=== PATIENT | male | born 1955 | race Hispanic/Latino ===

== ENCOUNTER → 2025-01-02 | Outpatient (CLI) | payer SELFPAY ==
[2025-01-02 11:43] LABS: CREATININE 0.7 mg/dL (0.5-1.3)
== END | disposition home or self-care (01) ==
LOC: LAB 10:36
PROVIDERS: ATTEND Surgery
DX: C18.7 Malignant neoplasm of sigmoid colon (principal)
CPT/HCPCS: 36415; 82565; 84520

== ENCOUNTER → 2025-01-05 | Outpatient (CLI) | payer OTHER ==
[~2025-01-05] MED LIST: GADOTERATE MEGLUMINE 10 MMOL/20 ML VIAL IV ONE
--- NOTE | 2025-01-05 10:18 | HMCIMG ---
Exam Type: MRI of the pelvis with and without gadolinium Findings: There is a rectosigmoid inhomogeneous complex appearing mass measuring 6 x 5.2 cm consistent with given history of neoplasm. There is no evidence of extension beyond the confines of the mass to adjacent structures. No adjacent lymphadenopathy is identified. The bony evaluation shows no lesions suggestive of skeletal metastatic disease to the pelvis. The rest of the examination is unremarkable. Specifically, the bony and cartilaginous structures of the pelvis are preserved. There is no significant effusion. No fractures or dislocations are identified. No bone lesions are seen. The prostate is prominent. The rest of the visualized soft tissue structures of the pelvis are unremarkable as well. Visualized portions of the bladder appear unremarkable. Impression: Mass of the rectosigmoid consistent with given history. No evidence of metastatic lesions or direct invasion. Incidentally, the prostate is prominent.
== END | disposition home or self-care (01) ==
LOC: RAH 07:50
PROVIDERS: ATTEND Surgery
DX: C18.7 Malignant neoplasm of sigmoid colon (principal)
CPT/HCPCS: 72197; A9575

== ENCOUNTER 2025-02-13 15:00 | Inpatient (IN) | payer SELFPAY ==
[2025-02-12 14:53] VITALS: BP 114/62; PULSE 62; RESP 17; TEMP 97.9
[2025-02-12 14:54] LABS: BASOPHILS # (AUTO) 0.04 K/uL (0.00-0.20); EOSINOPHILS # (AUTO) 0.16 K/uL (0.00-0.70); EOSINOPHILS % (AUTO) 3.9 % (0.0-8.0); LYMPHOCYTES # (AUTO) 1.1 K/uL (1.0-4.8); LYMPHOCYTES % (AUTO) 27.3 % (21.0-51.0); MEAN CORPUSCULAR HGB CONC 33.7 g/dL (32.0-36.0); MEAN CORPUSCULAR VOLUME 97.9 fL (79-99); MONOCYTES # (AUTO) 0.4 K/uL (0.1-1.0); MONOCYTES % (AUTO) 9.6 % (3.0-13.0); NEUTROPHILS # (AUTO) 2.4 K/uL (1.8-7.7); NEUTROPHILS % (AUTO) 58.2 % (40.0-77.0); PLATELET COUNT (AUTO) 192 K/uL (130-400); RED BLOOD CELL COUNT(AUTO) 3.88 MIL/uL (4.50-6.20); RED CELL DISTRIBUTION WIDTH 12.8 % (11.0-15.5); WHITE BLOOD COUNT (AUTO) 4.1 K/uL (4.8-10.8)
[2025-02-12 15:04] LABS: INR 1.15 (0.85-1.15)
[2025-02-12 15:05] LABS: PARTIAL THROMBOPLASTIN TIME 32.8 SEC (26.3-35.5)
[2025-02-12 15:12] LABS: ALBUMIN 3.7 g/dL (3.5-5.0); BILIRUBIN,TOTAL 0.4 mg/dL (0.2-1.0); CREATININE 0.7 mg/dL (0.5-1.3); TOTAL PROTEIN, SERUM 7.2 g/dL (6.0-8.3)
[~2025-02-13] VITALS: Ht 170.2 cm; Wt 61.1 kg
--- NOTE | 2025-02-13 06:46 | EKG ---
[facility] Test Date: 2025-02-12 Test Time: 14:49:36 Pat Name: AGATHA SOMMER Department: Patient ID: [facility] [id number] Room: Gender: M Road Maker: [id number] : 1955 Requested By: RIAZ LOUIS Order Number: [id number] Reading MD: Tasha Ramirez Measurements Intervals [place] Rate: 63 P: 75 GA: 125 QRS: 78 QRSD: 102 T: 65 QT: 398 QTc: 403 Interpretive Statements Sinus rhythm Ventricular premature complex No previous ECG available for comparison Electronically Signed On 02-13-2025 14:47:01 CDT by Tasha Ramirez Please click the below link to view image of tracing.
[2025-02-17] VITALS (9 sets, daily range): BP systolic 105–146; BP diastolic 45–70; PULSE 74–93; RESP 16–18; TEMP 97.5–98.3
[2025-02-17] MEDS: LACTATED RINGERS 1000ML 1,000 ML IV ONE (09:18)
[2025-02-17] MEDS: MEROPENEM 1GM 1 GM VIAL ONE (09:18)
[2025-02-17] MEDS: INDOCYANINE GREEN 25 MG VIAL IJ ONE (18:34)
[2025-02-17] MEDS ORDERED: LIDOCAINE 1%-EPI 1:100,000 20 ML VIAL ONE (18:35)
[2025-02-17] MEDS ORDERED: BUPIvacaine/PF 0.25% 30ML VIAL IJ ONE (18:35)
[2025-02-17] MEDS ORDERED: FENTanyl CITRate PF 50 MCG/1 ML 5ML AMP IV ONE (18:48)
[2025-02-17] MEDS ORDERED: proPOFol 10 MG/ML 20ML VIAL IV ONE (18:48)
[2025-02-17] MEDS ORDERED: dexaMETHasone SOD PHOSPHATE 10MG/ML 1ML VIAL ONE (18:48)
[2025-02-17] MEDS ORDERED: ondanSETRON 4MG INJ ONE (18:48)
[2025-02-17] MEDS ORDERED: LIDOCAINE PF 100MG/5ML (2%) SYRINGE 5ML ONE (18:48)
[2025-02-17] MEDS ORDERED: MIDAZOLAM HCL 1 MG/ML 2ML VIAL ONE (18:48)
[2025-02-17] MEDS: acetaMINOPHEN 100 ML ONE (18:53)
[2025-02-17] MEDS ORDERED: rocuRONium bROMide 10MG/1ML 5ML VL ONE (18:54)
[2025-02-17] MEDS: MEROPENEM 1GM 1 GM VIAL IVPB ONE (19:15)
[2025-02-17] MEDS ORDERED: FENTanyl CITRate PF 50 MCG/1 ML 2ML VIAL ONE (19:28)
[2025-02-17] MEDS ORDERED: GLYCOPYRROLATE 0.2 MG/ML 5 ML VIAL ONE ×2 (19:36→23:12)
[2025-02-17] MEDS ORDERED: phenylEPHRINE HCL 10 MG/ML 1ML VIAL IV ONE (22:17)
[2025-02-17] MEDS ORDERED: NEOSTIGMINE METHYLSULFATE 1MG/ML IV ONE (23:12)
--- NOTE | 2025-02-17 23:15 | OP ---
Operative Note: DATE OF PROCEDURE: 02/17/25 BRIEF OP NOTE SURGEON: RIAZ LOUIS MD PREOPERATIVE DIAGNOSIS: RECTAL CANCER POSTOPERATIVE DIAGNOSIS: RECTAL CANCER PROCEDURE: ROBOTIC LOW ANTERIOR RESECTION COLOSTOMY CLOSURE DIVERTING ILEOSTOMY CREATION SYSTEMIC ICG PLACEMENT OF AMNIOFIX ESTIMATED BLOOD LOSS: MINIMAL 30CC INDICATIONS: HISTORY OF RECTAL CANCER WITH PRIOR DIVERTING COLOSTOMY FOR OBSTRUCTION. COMPLETED CHEMOTHERAPY AND CHEMORADIATION AND PRESENTED FOR ELECTIVE RESECTION OF THE RECTAL CANCER WITH CLOSURE OF THE COLOSTOMY AND CREATION OF DIVERTING ILEOSTOMY RIAZ LOUIS MD February 17, 2025 23:15
[2025-02-17] MEDS ORDERED: ondanSETRON 4MG INJ IVP PRN (23:30)
[2025-02-17] MEDS: acetaMINOPHEN 325 MG TAB PO SCH (23:30)
[2025-02-17] MEDS: LACTATED RINGERS 1000ML 1,000 ML IV SCH (23:30)
[2025-02-17] MEDS: hydroMORPHone 1 MG INJ ONE (23:36)
[2025-02-17] MEDS: MEPERIDINE-PF 50 MG/ML SYG ONE (23:46)
[2025-02-18] VITALS (24 sets, daily range): BP systolic 97–142; BP diastolic 53–76; PULSE 60–89; RESP 16–20; TEMP 97.7–98.6; O2SAT 98–99
--- NOTE | 2025-02-18 00:20 | NUR ---
RECEIVED PATIENT FROM PACU NURSE SHAKEEL MENDOZA. PATIENT IS DROWSY BUT EASY TO AROUSE. NEW ILEOSTOMY NOTED TO LEFT UPPER QUADRANT ALONG WITH PAUL DRAIN WITH SANGUINOUS DRAINAGE. DOUGLAS CATHETER INTACT AND IN PLACE. PATIENT ON 3L NC SATING AT 100%. NO FAMILY AT BEDSIDE YET. PATIENT MADE COMFORTABLE. BED LOWERED AND IN LOCKED POSITION. CALL LIGHT WITHIN REACH
[2025-02-18] MEDS: hydroMORPHone 0.5 MG SYG (0.5MG/0.5ML) IVP PRN (01:18)
[2025-02-18] MEDS ORDERED: MAGNESIUM 2GM PREMIX 50ML 50 ML IV PRN (02:00)
[2025-02-18] MEDS ORDERED: PoTASSium chl 10% ELIXIR 20MEQ 20 MEQ/15 ML UDCUP PO PRN (02:00)
[2025-02-18] MEDS ORDERED: PoTASSium chloRIDE 20MEQ/100ML 100 ML IV PRN (02:00)
--- NOTE | 2025-02-18 02:01 | CONS ---
[facility] CONSULTATION NOTE Date of Service: February 18, 2025 Reason for Consultation: [ ] Requesting Physician: [ ] PCP:Dav Carrero HISTORY OF PRESENT ILLNESS: This is a 69-year-old male with past medical history of infectious gastroenteritis and colitis, gastritis, malignant neoplasm of sigmoid colon, iron-deficiency anemia chronic, diarrhea and surgical history of colostomy that was performed on September 18, 2024 who underwent an elective resection of the rectal cancer with closure of the colostomy and creation of diverting ileostomy today 02/17/[address]Luebbers Moon. Seen and examined patient in room 427,awake,alert and coherent,appears uncomfortable complaining of abdominal pain 10/10 pain level.Patient has an Ileostomy and a left PAUL.Patient denies fever,chills,nausea,vomiting,chest pain,palpitation and shortness of breath. Patient reports having a normal bowel movement this morning. Latest vital signs temperature 97.7, heart rate 85, blood pressure 126/76 saturation 100% on 3 L nasal cannula.Hosptialist consulted for medical management.Will continue to follow patient in medical surgical floor. REVIEW OF SYSTEMS CONSTITUTIONAL: Denies fevers, chills, or night sweats. No unintentional weight loss reported. NEUROLOGICAL: Denies headache, amaurosis fugax, motor weakness, sensory deficit, vertigo/spinning sensation, gait abnormalities, or tremors. ENT: No hearing loss, otalgia, otorrhea, rhinitis, rhinorrhea, hoarseness, or sore throat. CARDIOVASCULAR: Denies any exertional angina, dyspnea on exertion, orthopnea, paroxysmal nocturnal dyspnea, palpitations, life-threatening arrhythmias, claudication. PULMONARY: Denies any shortness of breath, cough, phlegm/sputum, hemoptysis, pleuritic chest pain. SLEEP: Denies morning headaches, daytime somnolence or napping. Denies difficulty falling asleep, staying asleep, waking from sleep. Denies knowledge of snoring. GASTROINTESTINAL: Complains of abdominal painDenies any type of dysphagia to either liquids or solids. Denies nausea, vomiting, pyrosis, early satiety, d iarrhea, constipation, or changes in stool consistency or caliber. Denies coffee-ground emesis, hematemesis, hematochezia, or melanotic stools. GENITOURINARY: Denies frequency, urgency, nocturia, hematuria or incontinence (Storage/Irritative symptoms.) Low urinary stream, straining to void, urinary intermittency or hesitancy, splitting of the voiding stream, terminal dribbling. ENDOCRINOLOGIC: Denies polyuria, polydipsia, polyphagia or heat/cold into lerances. HEMATOLOGIC: Denies thrombophilia/previous clots, or coagulopathy/bleeding disorders. ONCOLOGIC: Denies personal history of malignancy. DERMATOLOGIC: Denies rashes or pruritus. PSYCHIATRIC: Denies any suicidal or homicidal ideation. Denies hallucinations. PAST MEDICAL HISTORY: [Infectious gastroenteritis and colitis, gastritis, malignant neoplasm of sigmoid colon, iron-deficiency anemia, diarrhea, rectal cancer ] PAST SURGICAL HISTORY: [Colostomy performed on September 18, 2024 ] PAST SOCIAL HISTORY: [ Patient lives with . Patient denies alcohol tobacco and recreational drug use ] FAMILY HISTORY: [Noncontributory ] Coded Allergies: Iodinated Contrast Media (Unverified Allergy, Unknown, 02/12/25) PHYSICAL EXAM GENERAL APPEARANCE: The patient is awake, alert, and oriented, in no acute cardiopulmonary distress. NEUROLOGICAL: Cranial nerves II-XII grossly intact. Motor is 5/5 in bilateral upper and lower extremities proximal to distal. No sensory deficits. HEENT: Face is symmetric. Pupils are equal and reactive. Extraocular movements are intact. NECK: Supple. No JVD. No thyromegaly. No submental, submandibular, pre- /postauricular, occipital or supraclavicular lymphadenopathy. CHEST: Normal chest expansion. No Telemetry. LUNGS: Absence of any rales, rhonchi or any wheezing. CARDIOVASCULAR: Regular. S1 and S2 normal. No appreciable rubs, murmurs or gallops. ABDOMEN: Ileostomy Soft and nondistended. There is no voluntary guarding, or rigidity. : Deferred. Positive Leal. EXTREMITIES: Non-edematous and not cyanotic. No clubbing. Good capillary refill. SKIN: No skin breakdown. Vital Sign (Last 24 Hours) 02/18/25 02/18/25 00:23 00:52 Temp 97.7 Pulse 85 Resp 16 B/P (MAP) 126/76 Pulse Ox 100 O2 Delivery Nasal Cannula O2 Flow Rate 3.0 LABS: DIAGNOSTICS / RADIOLOGY: [ ] ASSESSMENT: Status post robotic low anterior resection with colostomy closure and diverting ileostomy creation POA Malignant neoplasm of sigmoid colon POA Rectal cancer POA Gastritis POA Acute normocytic normochromic anemia POA PLAN: We will admit patient in medical surgical floor Patient on clears liquid per surgery recommendation We will continue LR at 50 mL/hour We will start on Famotidine 20 mg IV bid for GI prophylaxis We will replace electrolytes as needed per protocol We will start on insulin sliding scale AC & HS with hypoglycemia protocol We will add prn medication for fever,pain,cough , nausea and vomiting We will reconcile home meds once medlist available We will request labs in am Further orders to follow depending on above results Case discussed with attending physician and came up with above treatment and plan of care. ADVANCED CARE PLANNING 1. Which of the following were discussed? Hospice Care - No Therapeutic options - Yes Advance Directives - No Other discussions - 2. Discussed with who? Patient and Deb 3. Voluntary nature of this service was explained to the patient? Yes 4. Amount of time spent - ___22____ 5. Reviewed by Physician? (if this service was performed by NPP) Yes ADDENDUM: ATTENDING PHYSICIAN ATTESTATION: I have reviewed the midlevel's plan. I have independently seen, reviewed the chart and made my own assessment of the patient. See my addendum for updates to the midlevel's medical plan MD ASAEL Ospina ROSEMARIE P [facility] February 18, 2025 02:01 PIERO OWEN MD February 18, 2025 18:26
[2025-02-18 03:56] LABS: BASOPHILS # (AUTO) 0.02 K/uL (0.00-0.20); BASOPHILS % (AUTO) 0.2 % (0.0-5.0); HEMOGLOBIN A1C 5.4 % (4.0-6.0); IMMATURE GRANULOCYTE ABSOLUTE 0.01 K/uL (0-1); LYMPHOCYTES # (AUTO) 0.5 K/uL (1.0-4.8); LYMPHOCYTES % (AUTO) 5.6 % (21.0-51.0); MEAN CORPUSCULAR HEMOGLOBIN 33.4 pg (27.0-33.0); MEAN CORPUSCULAR HGB CONC 34.7 g/dL (32.0-36.0); MEAN CORPUSCULAR VOLUME 96.2 fL (79-99); MONOCYTES # (AUTO) 0.4 K/uL (0.1-1.0); MONOCYTES % (AUTO) 4.8 % (3.0-13.0); NEUTROPHILS % (AUTO) 89.3 % (40.0-77.0); PLATELET COUNT (AUTO) 149 K/uL (130-400); RED BLOOD CELL COUNT(AUTO) 3.95 MIL/uL (4.50-6.20); RED CELL DISTRIBUTION WIDTH 12.1 % (11.0-15.5); WHITE BLOOD COUNT (AUTO) 8.9 K/uL (4.8-10.8)
[2025-02-18 04:00] LABS: CREATININE 0.7 mg/dL (0.5-1.3); POTASSIUM 3.6 mmol/L (3.5-5.1)
[2025-02-18 04:30] LABS: WBC MORPHOLOGY CONSISTENT W/DIFF
[2025-02-18] MEDS: PoTASSium chloRIDE 20MEQ ER 20 MEQ ERTAB PO PRN (05:11)
--- NOTE | 2025-02-18 07:27 | PN ---
[facility] PROGRESS NOTE Date of Visit: February 18, 2025 Time of Visit: 07:23 Events / Notes: [ 69 YO patient with history of rectal cancer who underwent a robotic assisted low anterior resection, colostomy closure, diverting ileostomy creation, systemic ICG for assessment of anastomotic graft and placement of amniofix. His VSS. Patient examined at bedside. Patient's respirations are unlabored with BBS clear. He is tolerating clear fluids but reported having some nausea last night. Abdomen is soft and not distended. Ileostomy with watery sanguinous output. ABD incision D&I. Pang cath with clear yellow urine. PAUL drain with serosanguinous output. Poc discussed and encouraged ambulation and I/S exercises. pang to remain in place today. Patient verbalized understanding and agreement. Review of Systems: CONSTITUTIONAL: No malaise or change in sensation of wellbeing. ENMT: No rhinorrhea, otorrhea, sinus pain, ear ache. CARDIOVASCULAR: No angina, palpitations, orthopnea or paroxysmal dyspnea. RESPIRATORY: No SOB. GASTROINTESTINAL: No abdominal pain, nausea, vomiting, diarrhea, hematemesis, melena or change in the patient's habitual bowel movements consistency/number. GENITOURINARY: No dysuria, hematuria or change in bladder continence. MUSCULOSKELETAL: No new muscle pain or decrease in muscular strength. No new joint swelling, redness or tenderness. SKIN: No new rash. Physical Exam: GEN: Awake, alert, oriented in person, time and place, and in no acute distress. HEENT: No rhinorrhea. Oral pharyngeal mucosa is pink, moist and within normal limits. Neck is supple. CHEST: Inspection, palpation of the chest were unremarkable. Lung auscultation revealed normal breath sounds bilaterally. CARDIAC: Heart sounds are regular. ABD: Soft, non-tender and not distended. No peritoneal signs on palpation. No organomegaly. Normal bowel sounds; Ileostomy patent and with sanguinous output. PAUL with serosanguinous discharge. Pang cath in place and with clear yellow urine. . EXT: No cyanosis or clubbing. No edema. SKIN: Intact. No rashes. JOINTS: No evidence of synovitis or acute arthritis. NEURO: Alert and oriented to name, place and person. Cranial nerve examination is unremarkable. No focal motor deficits. Normal speech. Strength is normal. Vital Signs (last 8hr) Date Time Temp Pulse Resp B/P (MAP) Pulse Ox O2 Delivery O2 Flow Rate FiO2 02/18/25 06:53 78 18 N/Cannula Low lpm 2.0 02/18/25 06:22 71 136/68 99 Nasal Cannula 3.0 02/18/25 05:22 85 142/73 98 Nasal Cannula 3.0 02/18/25 04:22 75 116/67 99 Nasal Cannula 3.0 02/18/25 03:22 77 127/72 100 Nasal Cannula 3.0 02/18/25 02:50 Nasal Cannula* 2 02/18/25 02:22 82 114/74 100 Nasal Cannula 3.0 02/18/25 01:52 89 125/64 100 Nasal Cannula 3.0 02/18/25 01:22 84 141/70 100 Nasal Cannula 3.0 02/18/25 01:07 84 124/63 100 Nasal Cannula 3.0 02/18/25 00:52 85 126/76 100 Nasal Cannula 3.0 02/18/25 00:37 62 106/56 100 Nasal Cannula 3.0 02/18/25 00:23 97.7 70 16 127/56 100 Nasal Cannula 3.0 02/18/25 00:22 80 127/65 100 Nasal Cannula 3.0 02/18/25 00:18 71 17 123/62 100 Nasal Cannula 3.0 02/18/25 00:13 75 17 132/58 100 Nasal Cannula 3.0 02/18/25 00:08 73 16 128/57 100 Nasal Cannula 3.0 02/18/25 00:03 74 17 137/53 100 Nasal Cannula 3.0 02/17/25 23:58 77 18 128/58 100 Nasal Cannula 3.0 02/17/25 23:53 79 17 146/67 100 Nasal Cannula 3.0 02/17/25 23:48 84 16 141/61 100 Nasal Cannula 3.0 02/17/25 23:43 88 17 124/68 100 Nasal Cannula 3.0 02/17/25 23:38 87 17 138/65 100 Nonrebreathing Mask 10.0 02/17/25 23:33 93 16 127/70 100 Nonrebreathing Mask 10.0 02/17/25 23:28 86 17 137/55 100 Nonrebreathing Mask 10.0 Laboratory: [ ] Laboratory: Test 02/18/25 05:07 02/18/25 03:15 Range/Units Whole Blood Glucose 143 H 70-110 MG/DL White Blood Count 8.9 4.8-10.8 K/uL Red Blood Count 3.95 L 4.50-6.20 MIL/uL Hemoglobin 13.2 L 14.0-18.0 g/dL Hematocrit 38.0 L 42-54 % Mean Corpuscular Volume 96.2 79-99 fL Mean Corpuscular Hemoglobin 33.4 H 27.0-33.0 pg Mean Corpuscular Hemoglobin Concent 34.7 32.0-36.0 g/dL Red Cell Distribution Width 12.1 11.0-15.5 % Platelet Count 149 130-400 K/uL Mean Platelet Volume 9.1 7.5-10.5 fL Immature Granulocyte % (Auto) 0.1 0-1 % Neutrophils (%) (Auto) 89.3 H 40.0-77.0 % Lymphocytes (%) (Auto) 5.6 L 21.0-51.0 % Monocytes (%) (Auto) 4.8 3.0-13.0 % Eosinophils (%) (Auto) 0.0 0.0-8.0 % Basophils (%) (Auto) 0.2 0.0-5.0 % Neutrophils # (Auto) 8.0 H 1.8-7.7 K/uL Lymphocytes # (Auto) 0.5 L 1.0-4.8 K/uL Monocytes # (Auto) 0.4 0.1-1.0 K/uL Eosinophils # (Auto) 0.00 0.00-0.70 K/uL Basophils # (Auto) 0.02 0.00-0.20 K/uL Absolute Immature Granulocyte (auto 0.01 0-1 K/uL Nucleated Red Blood Cells 0.0 0.0-0.19 % White Cell Morphology Comment CONSISTENT W/DIFF Sodium Level 140 136-145 mmol/L Potassium Level 3.6 3.5-5.1 mmol/L Chloride Level 104 101-111 mmol/L Carbon Dioxide Level 27 21-32 mmol/L Blood Urea Nitrogen 9 7-18 mg/dL Creatinine 0.7 0.5-1.3 mg/dL Glomerular Filtration Rate Calc 99 >90 mL/min Random Glucose 148 H 70-105 mg/dL Hemoglobin A1c 5.4 4.0-6.0 % Estimated Average Glucose (eAG) 108 70-126 mg/dL Total Calcium 8.5 8.5-10.1 mg/dL Current Medications Medications (Trade) Dose Ordered Sig/Alla Route PRN Reason Start Time Stop Time Status Last Admin Dose Admin Acetaminophen (TYLenol 325MG TAB) 650 mg Q6H PO 02/17/25 23:30 03/19/25 23:29 Enoxaparin Sodium (Lovenox) 40 mg DAILY SQ 02/18/25 09:00 03/20/25 08:59 Famotidine (Pepcid 20mg Vial) 20 mg BID IV 02/18/25 09:00 03/20/25 08:59 Hydromorphone HCl (DiLAUDid 0.5MG INJ) 0.5 mg Q4H PRN IVP SEVERE PAIN (7-10) 02/17/25 23:30 02/22/25 23:29 02/18/25 05:11 0.5 MG Insulin Human Regular (humuLIN R 100 UNIT/ML 3ML) AD PRN SQ SLIDING SCALE COVERAGE 02/17/25 23:30 03/19/25 23:29 Lactated Ringer's 1,000 ml @ 50 mls/hr Q20H IV 02/17/25 23:30 03/19/25 23:29 Magnesium Sulfate 50 ml @ 0 mls/hr PROTOCOL PRN IV OTHER [SEE ORDER COMMENTS] 02/18/25 02:00 03/20/25 01:59 Ondansetron HCl (zoFRAN 4MG INJ) 4 mg Q4H PRN IVP NAUSEA 02/17/25 23:30 03/19/25 23:29 Oxycodone HCl (ROXicoDONE) 5 mg Q4H PRN PO MODERATE PAIN (4-6) 02/17/25 23:30 02/24/25 23:29 Potassium Chloride 100 ml @ 100 mls/hr AD PRN IV POTASSIUM PROTOCOL 02/18/25 02:00 03/20/25 01:59 Potassium Chloride (K-Dur/Klor-Con 20meq) 20 meq AD PRN PO POTASSIUM PROTOCOL 02/18/25 02:00 03/20/25 01:59 02/18/25 05:11 20 MEQ Potassium Chloride (KCl 10% Elixir 20meq/15ml) 20 meq AD PRN PO POTASSIUM PROTOCOL 02/18/25 02:00 03/20/25 01:59 Diagnostics / Radiology: [COPY/PASTE HERE IF NO REPORTS PLEASE DELETE SECTION] Assessment: [Rectal Cancer Colostomy in place ] Plan: [Advance diet as tolerated Encourage ambulation Encourage I/S exercises Pain meds as needed Antiemetics prn and report any vomiting Please report any ileostomy output greater than 1000 ml / 24 hr Plan for disposition in the next 24-48 hours Please call with questions,concerns, and change in clinical status Appreciate hospitalist's assistance in our patient care. ] BIMAL LINDSEY NP February 18, 2025 07:27
--- NOTE | 2025-02-18 09:41 | NUR ---
DCP: HOME Pt is self pay, no insurance. PCP is Dav Carrero. Pt reports he lives at home wit Deb Gustafson. denies issues affording home, utilities and food. Pt uses no DME or HH or HSD services. Pt denies dc neds and will return home a dc, family to transport. Addendum: 02/18/25 at 0944 by SANTOS DEMPSEY Amended: Links added.
[2025-02-18] MEDS: ENOXAPARIN SODIUM 40 MG/0.4 ML SYRINGE SQ SCH (10:05)
[2025-02-18] MEDS: FAMOTIDINE 20MG VIAL IV SCH (10:05)
[2025-02-18] MEDS: INSULIN humuLIN R 100 UNIT/ML 3ML SQ PRN (12:16)
[2025-02-18] MEDS: OXYcodONE HCL 5 MG TAB PO PRN (19:01)
[2025-02-18] MEDS: chlorproMAZINE HCL 25 MG TAB PO ONE (22:22)
[2025-02-19 03:43] VITALS: BP 103/56; PULSE 75; RESP 18; TEMP 98.1
[2025-02-19 05:12] LABS: BASOPHILS # (AUTO) 0.04 K/uL (0.00-0.20); BASOPHILS % (AUTO) 0.5 % (0.0-5.0); EOSINOPHILS # (AUTO) 0.02 K/uL (0.00-0.70); EOSINOPHILS % (AUTO) 0.2 % (0.0-8.0); HEMATOCRIT 33.7 % (42-54); IMMATURE GRANULOCYTE ABSOLUTE 0.03 K/uL (0-1); LYMPHOCYTES # (AUTO) 0.7 K/uL (1.0-4.8); LYMPHOCYTES % (AUTO) 8.8 % (21.0-51.0); MEAN CORPUSCULAR HEMOGLOBIN 32.8 pg (27.0-33.0); MEAN CORPUSCULAR HGB CONC 34.1 g/dL (32.0-36.0); MONOCYTES # (AUTO) 0.4 K/uL (0.1-1.0); MONOCYTES % (AUTO) 4.8 % (3.0-13.0); NEUTROPHILS # (AUTO) 7.1 K/uL (1.8-7.7); NEUTROPHILS % (AUTO) 85.3 % (40.0-77.0); PLATELET COUNT (AUTO) 126 K/uL (130-400); RED BLOOD CELL COUNT(AUTO) 3.51 MIL/uL (4.50-6.20); RED CELL DISTRIBUTION WIDTH 12.3 % (11.0-15.5); WHITE BLOOD COUNT (AUTO) 8.3 K/uL (4.8-10.8)
[2025-02-19 05:21] LABS: CREATININE 0.7 mg/dL (0.5-1.3); POTASSIUM 3.8 mmol/L (3.5-5.1)
[2025-02-19 08:00] VITALS: BP 99/60; PULSE 84; RESP 19; TEMP 98.3
--- NOTE | 2025-02-19 08:45 | NUR ---
CATHETER REMOVAL 16 FR DOUGLAS CATHETER REMOVED WITHOUT COMPLICATIONS. CATHETER TIP INTACT. PATIENT TOLERATED WELL.
[2025-02-19 08:58] VITALS: O2SAT 95
--- NOTE | 2025-02-19 09:30 | NUR ---
SUTURE REMOVAL PATIENT HAD A SKIN BIOPSY WITH DERMATOLOGY FOR SKIN REACTION TO IODINE. THREE SUTURES PLACED DUE FOR REMOVAL 02/17. S/W MD DR. LEXIE RAMOS FOR US TO REMOVE.
[2025-02-19 12:00] VITALS: BP 93/57; PULSE 68; RESP 20; TEMP 98.9
--- NOTE | 2025-02-19 13:43 | PN ---
[facility] PROGRESS NOTE Date of Service: February 19, 2025 Time of Service: 13:27 SUBJECTIVE: 02/19 Pt seen at bedside, no acute events overnight. Pain is controlled, he has been able to ambulate. Ostomy with dark effluent output, approximately 90 cc recorded, 1350 cc of urine output. Stoma is pink and well perfused. Wounds are well approximated, no drainage noted. Further care per colorectal surgery REVIEW OF SYSTEMS 12 point ROS negative unless noted in HPI PHYSICAL EXAM GENERAL APPEARANCE: The patient is awake, alert, and oriented, in no acute cardiopulmonary distress. NEUROLOGICAL: Cranial nerves II-XII grossly intact. Motor is 5/5 in bilateral upper and lower extremities proximal to distal. No sensory deficits. HEENT: Face is symmetric. Pupils are equal and reactive. Extraocular movements are intact. NECK: Supple. No JVD. No thyromegaly. No submental, submandibular, pre- /postauricular, occipital or supraclavicular lymphadenopathy. CHEST: Normal chest expansion. No Telemetry. LUNGS: Absence of any rales, rhonchi or any wheezing. CARDIOVASCULAR: Regular. S1 and S2 normal. No appreciable rubs, murmurs or gallops. ABDOMEN: Ileostomy Soft and nondistended. There is no voluntary guarding, or rigidity. : Deferred. Positive Leal. EXTREMITIES: Non-edematous and not cyanotic. No clubbing. Good capillary refill. SKIN: No skin breakdown. Vital Signs (last 8hr) Date Time Temp Pulse Resp B/P (MAP) Pulse Ox O2 Delivery O2 Flow Rate FiO2 02/19/25 08:58 95 Room Air* 0 21 02/19/25 08:00 98.2 84 19 99/60 95 Room Air LABS: Laboratory: Test 02/19/25 11:24 02/19/25 04:57 02/18/25 03:15 Range/Units Whole Blood Glucose 118 H 70-110 MG/DL White Blood Count 8.3 4.8-10.8 K/uL Red Blood Count 3.51 L 4.50-6.20 MIL/uL Hemoglobin 11.5 L 14.0-18.0 g/dL Hematocrit 33.7 L 42-54 % Mean Corpuscular Volume 96.0 79-99 fL Mean Corpuscular Hemoglobin 32.8 27.0-33.0 pg Mean Corpuscular Hemoglobin Concent 34.1 32.0-36.0 g/dL Red Cell Distribution Width 12.3 11.0-15.5 % Platelet Count 126 L 130-400 K/uL Mean Platelet Volume 9.2 7.5-10.5 fL Immature Granulocyte % (Auto) 0.4 0-1 % Neutrophils (%) (Auto) 85.3 H 40.0-77.0 % Lymphocytes (%) (Auto) 8.8 L 21.0-51.0 % Monocytes (%) (Auto) 4.8 3.0-13.0 % Eosinophils (%) (Auto) 0.2 0.0-8.0 % Basophils (%) (Auto) 0.5 0.0-5.0 % Neutrophils # (Auto) 7.1 1.8-7.7 K/uL Lymphocytes # (Auto) 0.7 L 1.0-4.8 K/uL Monocytes # (Auto) 0.4 0.1-1.0 K/uL Eosinophils # (Auto) 0.02 0.00-0.70 K/uL Basophils # (Auto) 0.04 0.00-0.20 K/uL Absolute Immature Granulocyte (auto 0.03 0-1 K/uL Nucleated Red Blood Cells 0.0 0.0-0.19 % Sodium Level 137 136-145 mmol/L Potassium Level 3.8 3.5-5.1 mmol/L Chloride Level 105 101-111 mmol/L Carbon Dioxide Level 30 21-32 mmol/L Blood Urea Nitrogen 9 7-18 mg/dL Creatinine 0.7 0.5-1.3 mg/dL Glomerular Filtration Rate Calc 99 >90 mL/min Random Glucose 109 H 70-105 mg/dL Total Calcium 8.5 8.5-10.1 mg/dL White Cell Morphology Comment CONSISTENT W/DIFF Hemoglobin A1c 5.4 4.0-6.0 % Estimated Average Glucose (eAG) 108 70-126 mg/dL Current Medications Medications (Trade) Dose Ordered Sig/Alla Route PRN Reason Start Time Stop Time Status Last Admin Dose Admin Acetaminophen (TYLenol 325MG TAB) 650 mg Q6H PO 02/17/25 23:30 03/19/25 23:29 02/19/25 12:02 650 MG Enoxaparin Sodium (Lovenox) 40 mg DAILY SQ 02/18/25 09:00 03/20/25 08:59 02/19/25 08:40 40 MG Famotidine (Pepcid 20mg Vial) 20 mg BID IV 02/18/25 09:00 03/20/25 08:59 02/19/25 08:39 20 MG Hydromorphone HCl (DiLAUDid 0.5MG INJ) 0.5 mg Q4H PRN IVP SEVERE PAIN (7-10) 02/17/25 23:30 02/22/25 23:29 02/18/25 12:30 0.5 MG Insulin Human Regular (humuLIN R 100 UNIT/ML 3ML) AD PRN SQ SLIDING SCALE COVERAGE 02/17/25 23:30 03/19/25 23:29 Lactated Ringer's 1,000 ml @ 50 mls/hr Q20H IV 02/17/25 23:30 03/19/25 23:29 Magnesium Sulfate 50 ml @ 0 mls/hr PROTOCOL PRN IV OTHER [SEE ORDER COMMENTS] 02/18/25 02:00 03/20/25 01:59 Ondansetron HCl (zoFRAN 4MG INJ) 4 mg Q4H PRN IVP NAUSEA 02/17/25 23:30 03/19/25 23:29 Oxycodone HCl (ROXicoDONE) 5 mg Q4H PRN PO MODERATE PAIN (4-6) 02/17/25 23:30 02/24/25 23:29 02/18/25 19:01 5 MG Potassium Chloride 100 ml @ 100 mls/hr AD PRN IV POTASSIUM PROTOCOL 02/18/25 02:00 03/20/25 01:59 Potassium Chloride (K-Dur/Klor-Con 20meq) 20 meq AD PRN PO POTASSIUM PROTOCOL 02/18/25 02:00 03/20/25 01:59 02/19/25 05:59 20 MEQ Potassium Chloride (KCl 10% Elixir 20meq/15ml) 20 meq AD PRN PO POTASSIUM PROTOCOL 02/18/25 02:00 03/20/25 01:59 DIAGNOSTICS / RADIOLOGY: [ ] ASSESSMENT: Status post robotic low anterior resection with colostomy closure and diverting ileostomy creation POA Malignant neoplasm of sigmoid colon POA Rectal cancer POA Gastritis POA Acute normocytic normochromic anemia POA PLAN: Continue med/surg Continue diet per colorectal surgery Continue LR at 50 mL/hour Continue Famotidine 20 mg IV bid for GI prophylaxis PRN pain management Colorectal surgery consulted, appreciate recommendations Disposition: Pending improvement in clinical status PIERO OWEN MD February 19, 2025 13:43
[2025-02-19 16:00] VITALS: BP 98/58; PULSE 67; RESP 19; TEMP 98.6
--- NOTE | 2025-02-19 16:23 | DS ---
Discharge Summary HOSPITAL COURSE SUMMARY: [] LAB SYSTEMS ANALYST(S): [] PROCEDURES: [] PROBLEM(S): [] DISCHARGE INSTRUCTIONS: [] Home Meds No Active Prescriptions or Reported Meds MAGGY LUND [facility] February 19, 2025 16:23
--- NOTE | 2025-02-19 17:15 | NUR ---
SUTURE REMOVAL SUTURES ON RIGHT FOOT REMOVED WITHOUT COMPLICATIONS. 3 SUTURES NOTED. NO REDNESS, NO DRAINAGE NOTED TO AREA. PATIENT TOLERATED WILL NO DISCOMFORT NO PAIN NOTED BY PATIENT.
--- NOTE | 2025-02-19 20:30 | NUR ---
PATIENT DISCHARGED. PERIPHERAL IV DISCONTINUED. CATHETER INTACT. PAUL DRAIN REMOVED WITHOUT COMPLICATIONS. DISCHARGE INSTRUCTIONS GIVEN. NO NEW PRESCRIPTIONS. PATIENT AWARE TO F/U WITH PCP AND GI. GI OFFICE TO CONTACT PATIENT WITH SCHEDULED APPT. ALL QUESTIONS ANSWERED.
--- NOTE | 2025-02-23 10:08 | NUR ---
Transitional Phone Call Spoke to Deb Gustafson, Spouse [phone] in [place], states patient is "muy wilbur," "esta wilbur" and "realmente excellente" describing health, incision and person. States no changes in medication; no questions or concerns. States is aware of follow up appointments; has an appointment today 02/23/2025 with Leonel Spicer; will set up the follow up appointment with Dr. Dav Carrero Jr for another day due to patient needing recovering; states the was told the office of GI - Dr. Red Hernandez would contact patient with follow up appointment information. Deb Gustafson, Spouse [phone] inquired about the patient portal ; referred to Financial Counseling, provided number. No further questions at this time.
--- NOTE | 2025-03-02 12:08 | OP ---
Operative Note: DATE OF PROCEDURE: 02/17/25 SURGEON: RIAZ LOUIS MD GRANTS ADMINISTRATOR: None ANESTHESIA: general ANESTHESIOLOGIST/ANIMAL BEHAVIORIST: ANIMAL BEHAVIORIST PREOPERATIVE DIAGNOSIS: Rectal Cancer Colostomy status POSTOPERATIVE DIAGNOSIS: As above PROCEDURE: Robotic Low Anterior Resection Closure of Colostomy (open) Creation of Ileostomy (robotic/laparoscopic) Systemic ICG for assessment of anastomotic grafts Omental Flap creation Placement of AmnioFix ESTIMATED BLOOD LOSS: Minimal DESCRIPTION OF PROCEDURE: After informed consent was obtained, the patient was taken to the operating room and laid in the supine position. Once general endotracheal anesthesia was obtained, the patient was carefully placed into the lithotomy position. Next the abdomen was prepped and draped in the usual sterile fashion. A timeout was performed to confirm the correct patient and procedure. Next we entered the abdomen at [place] point with a Veress needle and was confirmed to be intra- abdominal with a saline drop test. Next pneumoperitoneum was obtained and the abdomen was entered in the right lower quadrant using a 12 mm Optiview scope. The camera was inserted and the abdomen was inspected, there is no evidence of metastatic disease. Supplemental The abdomen. Next the remaining trochars were inserted under direct visualization in a horizontal fashion across the mid abdomen. We then made a circular incision in the right upper quadrant and the premarked ostomy site and dissected down to the anterior fascia which was incised, muscle split, and the posterior fascia was incised and the abdomen this was followed by placement of a wound protector. We then took down the prior loop colostomy by making a [place] incision of the mucocutaneous junction and dissecting down to the anterior fascia. We carefully from tissue from the colon to completely free it. We then placed a 29EEA anvil into the antimesenteric portion of the colon and then transected it with a blue load ESPERANZA 75 stapler. Next the robot was docked in the usual sterile fashion. The sigmoid colon was grasped and retracted medially and the colon was mobilized in a lateral to medial manner. The left ureter was identified and protected throughout the entirety of the case. Once the lateral to medial mobilization was complete the PEARL pedicle was retracted and the peritoneum was scored. The PEARL pedicle was isolated and taken with a white load stapler. Next the posterior rectum was mobilized by dissecting in the presacral space down to the pelvic floor. We then in the anterior dissection incising the peritoneal reflection carefully the rectum from the Denovillers fascia down to the pelvic floor. Once it was done we then took both the right and left lateral stalks. She was seen at the mid rectum. We performed a flexible sigmoidoscopy which confirmed the area the tumor to be in the mid rectum. We then isolated the rectum and transected it with a blue load stapler. Next the mesentery of the sigmoid colon was taken up to an area which was going to be used for the anastomosis. We then gave systemic ICG to assess the bowel which was good to be used as our anastomotic grafts. The specimen was extracted from the right upper quadrant incision. We placed amnio fix over the anvil to be incorporated within the anastomosis. Next the 2 ends of the EEA stapler were mated and a side to end anastomosis was performed. Next an omental flap was created and was placed around the anastomosis. We then selected an area of the small bowel up to 40 to mention the ileocecal valve to use the ileostomy. the abdomen was irrigated until the return was clear. Hemostasis was obtained. Hemostatic powder and drain left in place. We then grasped the small bowel to be used for the ileostomy. and pulled it above skin left. Wound protector removed. The trochars were removed from the abdomen the 12 mm trocar site was closed with a Vicryl suture. All skin incisions were closed with Monocryl sutures and Dermabond placed a sterile dressing. We then matured the ileostomy in the usual Maggy fashion with chromic sutures the patient tolerated the procedure well was taken to the recovery room in stable condition. I discussed the above with the family completion of the case. RIAZ LOUIS MD Mar 02, 2025 12:08
== END 2025-02-19 18:40 | disposition home or self-care (01) | DRG 330 ==
LOC: DAHIP 02-17 08:30 → 4DH 02-17 23:58
PROVIDERS: ADMIT Surgery; ATTEND Surgery
PROC: 0DQG0ZZ Repair Left Large Intestine, Open Approach (ICD-10-PCS; 2025-02-17)
PROC: 0DXU4ZW Transfer Omentum to Abdominal Region, Percutaneous Endoscopic Approach (ICD-10-PCS; 2025-02-17)
PROC: 0DBP4ZZ Excision of Rectum, Percutaneous Endoscopic Approach (ICD-10-PCS; 2025-02-17)
PROC: 4A1BXSH Monitoring of Gastrointestinal Vascular Perfusion using Indocyanine Green Dye, External Approach (ICD-10-PCS; 2025-02-17)
PROC: 8E0W4CZ Robotic Assisted Procedure of Trunk Region, Percutaneous Endoscopic Approach (ICD-10-PCS; principal; 2025-02-17 18:55)
PROC: 0D1B4Z4 Bypass Ileum to Cutaneous, Percutaneous Endoscopic Approach (ICD-10-PCS; 2025-02-17 18:55)
DX: C18.7 Malignant neoplasm of sigmoid colon (principal); C20 Malignant neoplasm of rectum; K29.70 Gastritis, unspecified, without bleeding; D50.9 Iron deficiency anemia, unspecified; Z43.3 Encounter for attention to colostomy
CPT/HCPCS: 36415; 45330; 80048; 80053; 82948; 83036; 85025; 85610; 85730; 86850; 86900; 86901; 88305; 88309; 93005; A4344; A4450; A5063; G0378; J1100; J1171; J1650; J2003; J2175; J2185; J2250; J2371; J2405; J2704; J2710; J3010; J3490; J7030; J7120; Q0161; A4213; A4215; A4216; A4221; A4222; A4223; A4600; A4649; A4663; A4930; A6260; C1769; J0665

== ENCOUNTER → 2025-04-20 | Outpatient (CLI) | payer SELFPAY ==
--- NOTE | 2025-04-20 15:07 | HMCIMG ---
COMPARISON: None Available FLUOROSCOPY TIME: 2.2 minutes TECHNIQUE: Single contrast Gastrografin enema was performed. The entire colon was coated with barium adequately and distended with air. FINDINGS: All colonic segments are well visualized. There are no strictures, masses, or polyps identified. The terminal ileum was seen to reflux with contrast. Appendix is not visualized. There is a left-sided mid abdomen ileostomy tube in place. The post evacuation radiograph demonstrated minimal residual Gastrografin in right colon. IMPRESSION: 1. Unremarkable single contrast Gastrografin enema.
== END | disposition home or self-care (01) ==
LOC: RAH 10:57
PROVIDERS: ATTEND Surgery
DX: Z93.2 Ileostomy status (principal)
CPT/HCPCS: 74270; Q9958

== ENCOUNTER 2025-05-11 11:00 | Inpatient (IN) | payer SELFPAY ==
[~2025-05-11] VITALS: Ht 167.6 cm; Wt 64.9 kg
[2025-05-11 14:20] VITALS: BP 103/58; PULSE 59; RESP 17; TEMP 97.7
[2025-05-11 14:25] LABS: IMMATURE GRANULOCYTE ABSOLUTE 0.01 K/uL (0-1); NUCLEATED RED BLOOD CELLS 0.0 % (0.0-0.19); PLATELET COUNT (AUTO) 153 K/uL (130-400); RED BLOOD CELL COUNT(AUTO) 3.96 MIL/uL (4.50-6.20); RED CELL DISTRIBUTION WIDTH 13.0 % (11.0-15.5); WHITE BLOOD COUNT (AUTO) 3.9 K/uL (4.8-10.8)
--- NOTE | 2025-05-11 14:30 | EKG ---
[facility] Test Date: 2025-05-11 Test Time: 14:11:37 Pat Name: AGATHA SOMMER Department: Patient ID: [facility] [id number] Room: Gender: M Model Maker Plaster: [id number] : 1955 Requested By: MARU AGUILAR Order Number: [id number] Reading MD: Rupert Kent Measurements Intervals [place] Rate: 59 P: 95 [place]: 131 QRS: 77 QRSD: 87 T: 68 QT: 397 QTc: 392 Interpretive Statements Sinus rhythm Compared to ECG 02/12/2025 14:49:36 Ventricular premature complex(es) no longer present Electronically Signed On 05-11-2025 16:59:26 CDT by Rupert Kent Please click the below link to view image of tracing.
[2025-05-11 14:36] LABS: INR 1.03 (0.85-1.15)
[2025-05-11 14:40] LABS: ASPARTATE AMINOTRANSFERASE 17.0 U/L (10-37); CREATININE 0.7 mg/dL (0.5-1.3); GLOMERULAR FILTR. RATE CALC 99.0 mL/min (>90); GLUCOSE,RANDOM 93.0 mg/dL (70-105); SODIUM SERUM 137.0 mmol/L (136-145); TOTAL PROTEIN, SERUM 7.8 g/dL (6.0-8.3); UREA NITROGEN, BLOOD 12.0 mg/dL (7-18)
[2025-05-11] MEDS ORDERED: IMMODIUM PO (14:51)
[2025-05-13] VITALS (27 sets, daily range): BP systolic 111–140; BP diastolic 52–77; PULSE 59–99; RESP 13–19; TEMP 96.3–98; O2SAT 96–100
[2025-05-13] MEDS: INVANZ 1GM+NS 50ML IVPB 50 ML IV SCH (07:11)
[2025-05-13] MEDS: LACTATED RINGERS 1000ML 1,000 ML IV ONE (07:11)
[2025-05-13] MEDS ORDERED: NEOSTIGMINE METHYLSULFATE 1MG/ML IV ONE (07:14)
[2025-05-13] MEDS ORDERED: SUCCINYLCHOLINE CHLORIDE 20 MG/ML 10 ML VIAL ONE (07:14)
[2025-05-13] MEDS ORDERED: GLYCOPYRROLATE 0.2 MG/ML 5 ML VIAL ONE (07:14)
[2025-05-13] MEDS ORDERED: LIDOCAINE PF 100MG/5ML (2%) SYRINGE 5ML ONE (07:14)
[2025-05-13] MEDS ORDERED: MIDAZOLAM HCL 1 MG/ML 2ML VIAL ONE (07:15)
[2025-05-13] MEDS: ERTAPENEM SODIUM 1 GM/VIAL IV ONE (08:20)
[2025-05-13] MEDS ORDERED: LIDOCAINE 1%-EPI 1:100,000 20 ML VIAL ONE (08:27)
[2025-05-13] MEDS ORDERED: LIDOCAINE HCL 1% 20 ML VIAL ONE (08:27)
[2025-05-13] MEDS ORDERED: HYDROcodone/APAP 5/325 1 TAB TABLET PO PRN (09:30)
--- NOTE | 2025-05-13 09:31 | OP ---
Operative Note: DATE OF PROCEDURE: 05/13/25 SURGEON: MARU AGUILAR MD CAMPUS PRESIDENT: [None] ANESTHESIA: [General endotracheal anesthesia] ANESTHESIOLOGIST/FIELD ASSISTANT: [] PREOPERATIVE DIAGNOSIS: [Ileostomy status] POSTOPERATIVE DIAGNOSIS: [Ileostomy status] SYNOPSIS: [Good closure of ileostomy] PROCEDURE: [Ileostomy closure with small-bowel resection] ESTIMATED BLOOD LOSS: [20 mL] INDICATIONS: [The patient is a very pleasant 69-year-old male who is status post robotic low anterior resection with a diverting ileostomy. He now presents for ileostomy closure. The complications, risks alternatives and benefits were discussed with him and his family in detail. Risks include infection, bleeding, injury to surrounding structures, need further surgery, leak from anastomosis and poor bowel function. All questions were answered to their satisfaction and they all wished to proceed with the operation.] DESCRIPTION OF PROCEDURE: [The patient is brought to the operating theater placed supine on the operating table. After appropriate general endotracheal anesthesia was administered and IV antibiotics given the patient is placed in the supine position. The abdomen was prepped and draped in appropriate sterile surgical fashion. Local anesthetic was injected around the ileostomy. Circumferential dissection was achieved around the ileostomy using electrocautery down to the fascia. Sharp dissection was used were appropriate. Once the ileostomy was dissected from the fascia the ileostomy was amputated with normal small bowel on both sides of the ileostomy to provide for a healthy anastomosis. Proximally 5-7 cm on each side was removed. This was a small bowel resection. The mesentery was ligated with the ties. A iete-ep-[id number] anastomosis was created using a ESPERANZA 75 stapler. The entero enterotomy was closed using a tl 60. Excellent hemostasis was achieved. Bowel was were turned to the abdominal cavity. The fascia was closed with 1. PDS in a running fashion. Wound was irrigated and the skin was closed in a pursestring fashion using Monocryl suture. The wound was then packed with a wick. There were no complications. The instrument, sponge and needle count were reported as correct x2 by nursing staff. The patient was then extubated and transferred to the recovery room in a stable condition having tolerated the procedure very well.] MARU AGUILAR MD May 13, 2025 09:31
--- NOTE | 2025-05-13 10:09 | CONS ---
[facility] CONSULTATION NOTE Date of Service: May 13, 2025 Reason for Consultation: [Medical Management] Requesting Physician: [ Dr. Codnon ] HISTORY OF PRESENT ILLNESS: Date of service: 05/13/2025, patient was seen in PACU room 13 This is a 69-year-old male with prior history of malignant neoplasm of the sigmoid colon. Has prior history of colostomy in 08/2024 and low anterior resection with diverting ileostomy in 02/17/2025. Patient underwent closure of ileostomy today with small bowel resection. Patient was seen in PACU postprocedure. He appears very sleepy post anesthesia, he is able to tell me he is not in significant pain. Denies any chest pain, shortness of breath. No significant underlying medical history noted otherwise. We will continue to monitor this patient closely postoperatively. REVIEW OF SYSTEMS: CONSTITUTIONAL: Denies fevers, chills, or night sweats. No unintentional weight loss reported. NEUROLOGICAL: Denies headache, amaurosis fugax, motor weakness, sensory deficit, vertigo/spinning sensation, gait abnormalities, or tremors. ENT: No hearing loss, otalgia, otorrhea, rhinitis, rhinorrhea, hoarseness, or sore throat. CARDIOVASCULAR: Denies any exertional angina, dyspnea on exertion, orthopnea, paroxysmal nocturnal dyspnea, palpitations, life-threatening arrhythmias, claudication. PULMONARY: Denies any shortness of breath, cough, phlegm/sputum, hemoptysis, pleuritic chest pain. SLEEP: Denies morning headaches, daytime somnolence or napping. Denies difficulty falling asleep, staying asleep, waking from sleep. Denies knowledge of snoring. GASTROINTESTINAL: Denies any type of dysphagia to either liquids or solids. Denies nausea, vomiting, pyrosis, early satiety, abdominal pain, diarrhea, constipation, or changes in stool consistency or caliber. Denies coffee-ground emesis, hematemesis, hematochezia, or melanotic stools. GENITOURINARY: Denies frequency, urgency, nocturia, hematuria or incontinence (Storage/Irritative symptoms.) Low urinary stream, straining to void, urinary intermittency or hesitancy, splitting of the voiding stream, terminal dribbling. ENDOCRINOLOGIC: Denies polyuria, polydipsia, polyphagia or heat/cold intolerances. HEMATOLOGIC: Denies thrombophilia/previous clots, or coagulopathy/bleeding disorders. ONCOLOGIC: Denies personal history of malignancy. DERMATOLOGIC: Denies rashes or pruritus. PSYCHIATRIC: Denies any suicidal or homicidal ideation. Denies hallucinations. PAST MEDICAL HISTORY: Prior history of gastritis, history of malignant neoplasm of sigmoid colon, iron deficiency anemia, diarrhea PAST SURGICAL HISTORY: History of colostomy in 08/2024, lower anterior resection with diverting ileostomy in 02/17/2025 PAST SOCIAL HISTORY: Denies significant alcohol or smoking FAMILY HISTORY: Denies pertinent family history Allergies: Iodinated contrast media Coded Allergies: Iodinated Contrast Media (Unverified Allergy, Unknown, 02/12/25) PHYSICAL EXAM GENERAL APPEARANCE: The patient is awake, alert, and oriented, in no acute cardiopulmonary distress. NEUROLOGICAL: Cranial nerves II-XII grossly intact. Motor is 5/5 in bilateral upper and lower extremities proximal to distal. No sensory deficits. HEENT: Face is symmetric. Pupils are equal and reactive. Extraocular movements are intact. NECK: Supple. No JVD. No thyromegaly. No submental, submandibular, pre- /postauricular, occipital or supraclavicular lymphadenopathy. CHEST: Normal chest expansion. No Telemetry. LUNGS: Absence of any rales, rhonchi or any wheezing. CARDIOVASCULAR: Regular. S1 and S2 normal. No appreciable rubs, murmurs or gallops. ABDOMEN: Soft, nontender, and nondistended. There is no rebound, voluntary guarding, or rigidity. : Deferred. No Leal. EXTREMITIES: Non-edematous and not cyanotic. No clubbing. Good capillary refill. SKIN: No skin breakdown. Vital Sign (Last 24 Hours) 05/13/25 05/13/25 09:30 10:00 Temp 97.0 Pulse 95 Resp 17 B/P (MAP) 117/59 Pulse Ox 100 O2 Delivery Nasal Cannula O2 Flow Rate 3.0 LABS: Laboratory: Test 05/11/25 14:12 Range/Units White Blood Count 3.9 L 4.8-10.8 K/uL Red Blood Count 3.96 L 4.50-6.20 MIL/uL Hemoglobin 12.2 L 14.0-18.0 g/dL Hematocrit 36.2 L 42-54 % Mean Corpuscular Volume 91.4 79-99 fL Mean Corpuscular Hemoglobin 30.8 27.0-33.0 pg Mean Corpuscular Hemoglobin Concent 33.7 32.0-36.0 g/dL Red Cell Distribution Width 13.0 11.0-15.5 % Platelet Count 153 130-400 K/uL Mean Platelet Volume 8.9 7.5-10.5 fL Immature Granulocyte % (Auto) 0.3 0-1 % Neutrophils (%) (Auto) 51.3 40.0-77.0 % Lymphocytes (%) (Auto) 32.2 21.0-51.0 % Monocytes (%) (Auto) 9.4 3.0-13.0 % Eosinophils (%) (Auto) 5.5 0.0-8.0 % Basophils (%) (Auto) 1.3 0.0-5.0 % Neutrophils # (Auto) 2.0 1.8-7.7 K/uL Lymphocytes # (Auto) 1.2 1.0-4.8 K/uL Monocytes # (Auto) 0.4 0.1-1.0 K/uL Eosinophils # (Auto) 0.21 0.00-0.70 K/uL Basophils # (Auto) 0.05 0.00-0.20 K/uL Absolute Immature Granulocyte (auto 0.01 0-1 K/uL Nucleated Red Blood Cells 0.0 0.0-0.19 % Prothrombin Time 10.9 9.6-11.6 SEC Prothromb Time International Ratio 1.03 0.85-1.15 Activated Partial Thromboplast Time 31.5 26.3-35.5 SEC Sodium Level 137 136-145 mmol/L Potassium Level 4.3 3.5-5.1 mmol/L Chloride Level 102 101-111 mmol/L Carbon Dioxide Level 30 21-32 mmol/L Blood Urea Nitrogen 12 7-18 mg/dL Creatinine 0.7 0.5-1.3 mg/dL Glomerular Filtration Rate Calc 99 >90 mL/min Random Glucose 93 70-105 mg/dL Total Calcium 9.0 8.5-10.1 mg/dL Total Bilirubin 0.5 0.2-1.0 mg/dL Aspartate Amino Transf (AST/SGOT) 17 10-37 U/L Alanine Aminotransferase (ALT/SGPT) 21 12-78 U/L Alkaline Phosphatase 84 50-136 U/L Total Protein 7.8 6.0-8.3 g/dL Albumin 3.7 3.5-5.0 g/dL DIAGNOSTICS / RADIOLOGY: none ASSESSMENT: Status post ileostomy, 05/13/2025, by Dr. Condon Prior history of LAR with diverting ileostomy in 02/17/2025, POA History of colostomy in 08/2024, POA History of malignant neoplasm of sigmoid colon, POA History of anemia, POA PLAN: Continue with close monitoring in medical-surgical floor Continue with pain control and IV fluids post surgery Continue with postsurgical care by Dr. Condon Home meds will be reconciled and updated, we will hold loperamide Continue with IS, and out of bed to chair twice daily All labs will be repeated in the morning Continue with GI prophylaxis with Pepcid, DVT prophylaxis with Lovenox Monitor patient closely patient is seen postoperatively in PACU and is sleepy, postanesthesia, we will monitor closely and see how patient progresses in the next 24-48 hours Date of service: 05/13/2025 SKY Koch MD, MD May 13, 2025 10:09
[2025-05-13] MEDS: D5W-1/2 NS/20MEQ KCL 1,000 ML IV SCH (12:31)
[2025-05-13] MEDS: SIMETHICONE 80 MG TAB.CHEW PO PRN (18:28)
[2025-05-13] MEDS: FAMOTIDINE 20MG VIAL IV SCH (20:33)
[2025-05-14] VITALS (12 sets, daily range): BP systolic 109–149; BP diastolic 67–83; PULSE 55–69; RESP 16–20; TEMP 97.5–98.6; O2SAT 95–98
[2025-05-14 05:00] LABS: IMMATURE GRANULOCYTE ABSOLUTE 0.04 K/uL (0-1); NUCLEATED RED BLOOD CELLS 0.0 % (0.0-0.19); PLATELET COUNT (AUTO) 133 K/uL (130-400); RED BLOOD CELL COUNT(AUTO) 3.43 MIL/uL (4.50-6.20); RED CELL DISTRIBUTION WIDTH 12.9 % (11.0-15.5); WHITE BLOOD COUNT (AUTO) 8.4 K/uL (4.8-10.8)
[2025-05-14 05:11] LABS: CREATININE 0.7 mg/dL (0.5-1.3); GLOMERULAR FILTR. RATE CALC 99.0 mL/min (>90); GLUCOSE,RANDOM 143.0 mg/dL (70-105); SODIUM SERUM 138.0 mmol/L (136-145); UREA NITROGEN, BLOOD 11.0 mg/dL (7-18)
[2025-05-14] MEDS: MULTIVITAMIN TABLET PO SCH (07:50)
[2025-05-14] MEDS: ENOXAPARIN SODIUM 40 MG/0.4 ML SYRINGE SQ SCH (07:52)
[2025-05-14] MEDS: MAGNESIUM 2GM PREMIX 50ML 50 ML IV SCH (07:55)
--- NOTE | 2025-05-14 09:16 | PN ---
[facility] PROGRESS NOTE Date of Service: May 14, 2025 Time of Service: 09:[address] Whitley SUBJECTIVE: [ 05/13 This is a 69-year-old male with prior history of malignant neoplasm of the sigmoid colon. Has prior history of colostomy in 08/2024 and low anterior resection with diverting ileostomy in 02/17/2025. Patient underwent closure of ileostomy today with small bowel resection. Patient was seen in PACU postprocedure. He appears very sleepy post anesthesia, he is able to tell me he is not in significant pain. Denies any chest pain, shortness of breath. No significant underlying medical history noted otherwise. We will continue to monitor this patient closely postoperatively. 05/14 patient was seen by nurse practitioner and physician during rounding in ro om [id number]. Patient is day one s/p ileostomy closure with small-bowel resection with Dr. Condon. WBC 8.4. H&H stable. Patient denies any shortness of breath, chest pain, nausea, vomiting or any other discomfort. Surgical site present with no signs of infection. We will continue to monitor patient in the meantime. A.m. labs. Disposition as per primary.] REVIEW OF SYSTEMS: CONSTITUTIONAL: Denies fevers, chills, or night sweats. No unintentional weight loss reported. NEUROLOGICAL: Denies headache, amaurosis fugax, motor weakness, sensory deficit, vertigo/spinning sensation, gait abnormalities, or tremors. ENT: No hearing loss, otalgia, otorrhea, rhinitis, rhinorrhea, hoarseness, or sore throat. CARDIOVASCULAR: Denies any exertional angina, dyspnea on exertion, orthopnea, paroxysmal nocturnal dyspnea, palpitations, life-threatening arrhythmias, claudication. PULMONARY: Denies any shortness of breath, cough, phlegm/sputum, hemoptysis, pleuritic chest pain. SLEEP: Denies morning headaches, daytime somnolence or napping. Denies difficulty falling asleep, staying asleep, waking from sleep. Denies knowledge of snoring. GASTROINTESTINAL: Denies any type of dysphagia to either liquids or solids. Denies nausea, vomiting, pyrosis, early satiety, abdominal pain, diarrhea, constipation, or changes in stool consistency or caliber. Denies coffee-ground emesis, hematemesis, hematochezia, or melanotic stools. GENITOURINARY: Denies frequency, urgency, nocturia, hematuria or incontinence (Storage/Irritative symptoms.) Low urinary stream, straining to void, urinary intermittency or hesitancy, splitting of the voiding stream, terminal dribbling. ENDOCRINOLOGIC: Denies polyuria, polydipsia, polyphagia or heat/cold intolerances. HEMATOLOGIC: Denies thrombophilia/previous clots, or coagulopathy/bleeding disorders. ONCOLOGIC: Denies personal history of malignancy. DERMATOLOGIC: Denies rashes or pruritus. PSYCHIATRIC: Denies any suicidal or homicidal ideation. Denies hallucinations. PHYSICAL EXAM GENERAL APPEARANCE: The patient is awake, alert, and oriented, in no acute cardiopulmonary distress. NEUROLOGICAL: Cranial nerves II-XII grossly intact. Motor is 5/5 in bilateral upper and lower extremities proximal to distal. No sensory deficits. HEENT: Face is symmetric. Pupils are equal and reactive. Extraocular movements are intact. NECK: Supple. No JVD. No thyromegaly. No submental, submandibular, pre- /postauricular, occipital or supraclavicular lymphadenopathy. CHEST: Normal chest expansion. No Telemetry. LUNGS: Absence of any rales, rhonchi or any wheezing. CARDIOVASCULAR: Regular. S1 and S2 normal. No appreciable rubs, murmurs or ga llops. ABDOMEN: Soft, nontender, and nondistended. There is no rebound, voluntary guarding, or rigidity. : Deferred. No Leal. EXTREMITIES: Non-edematous and not cyanotic. No clubbing. Good capillary refill. SKIN: No skin breakdown. Vital Signs (last 8hr) Date Time Temp Pulse Resp B/P (MAP) Pulse Ox O2 Delivery O2 Flow Rate FiO2 05/14/25 07:51 98.2 56 18 119/74 98 Room Air 05/14/25 07:04 62 18 N/A Room Air 21 05/14/25 04:00 97.9 57 17 119/76 96 Room Air LABS: Laboratory: Test 05/14/25 04:36 Range/Units White Blood Count 8.4 4.8-10.8 K/uL Red Blood Count 3.43 L 4.50-6.20 MIL/uL Hemoglobin 10.6 L 14.0-18.0 g/dL Hematocrit 31.2 L 42-54 % Mean Corpuscular Volume 91.0 79-99 fL Mean Corpuscular Hemoglobin 30.9 27.0-33.0 pg Mean Corpuscular Hemoglobin Concent 34.0 32.0-36.0 g/dL Red Cell Distribution Width 12.9 11.0-15.5 % Platelet Count 133 130-400 K/uL Mean Platelet Volume 9.0 7.5-10.5 fL Immature Granulocyte % (Auto) 0.5 0-1 % Neutrophils (%) (Auto) 82.9 H 40.0-77.0 % Lymphocytes (%) (Auto) 10.8 L 21.0-51.0 % Monocytes (%) (Auto) 5.6 3.0-13.0 % Eosinophils (%) (Auto) 0.0 0.0-8.0 % Basophils (%) (Auto) 0.2 0.0-5.0 % Neutrophils # (Auto) 7.0 1.8-7.7 K/uL Lymphocytes # (Auto) 0.9 L 1.0-4.8 K/uL Monocytes # (Auto) 0.5 0.1-1.0 K/uL Eosinophils # (Auto) 0.00 0.00-0.70 K/uL Basophils # (Auto) 0.02 0.00-0.20 K/uL Absolute Immature Granulocyte (auto 0.04 0-1 K/uL Nucleated Red Blood Cells 0.0 0.0-0.19 % Sodium Level 138 136-145 mmol/L Potassium Level 4.4 3.5-5.1 mmol/L Chloride Level 103 101-111 mmol/L Carbon Dioxide Level 30 21-32 mmol/L Blood Urea Nitrogen 11 7-18 mg/dL Creatinine 0.7 0.5-1.3 mg/dL Glomerular Filtration Rate Calc 99 >90 mL/min Random Glucose 143 H 70-105 mg/dL Total Calcium 8.6 8.5-10.1 mg/dL Magnesium Level 1.80 1.80-2.40 mg/dL Current Medications Medications (Trade) Dose Ordered Sig/Alla Route PRN Reason Start Time Stop Time Status Last Admin Dose Admin Acetaminophen (TYLenol 325MG TAB) 650 mg Q4H PRN PO TEMPERATURE GREATER THAN 101 05/13/25 09:30 06/12/25 09:29 Acetaminophen/ Hydrocodone Bitart (NORco 5/325MG) 1 tab Q4H PRN PO MODERATE PAIN (4-6) 05/13/25 09:30 05/13/25 09:31 DC Albuterol (DUOneb) 1 udvial Q6H PRN IH sob OR WHEEZING 05/13/25 10:30 06/12/25 10:29 Enoxaparin Sodium (Lovenox) 40 mg DAILY SQ 05/14/25 09:00 06/13/25 08:59 05/14/25 07:52 40 MG Ertapenem 50 ml @ 100 mls/hr ONCALL IV 05/13/25 08:00 05/13/25 16:03 DC Famotidine (Pepcid 20mg Vial) 20 mg BID IV 05/13/25 21:00 06/12/25 20:59 05/14/25 07:50 20 MG Hydralazine HCl (APRESOLine 20MG INJ) 5 mg Q6H PRN IV ADMINISTER FOR SBP > 160 05/13/25 11:30 06/12/25 11:29 Magnesium Sulfate 50 ml @ 0 mls/hr PROTOCOL IV 05/14/25 06:00 06/13/25 05:59 05/14/25 07:55 25 MLS/HR Morphine Sulfate (morPHINE 2MG SYG) 2 mg Q3H PRN IV MODERATE PAIN (4-6) 05/13/25 09:30 05/20/25 09:29 Morphine Sulfate (morPHINE 4MG SYG) 4 mg Q3H PRN IV SEVERE PAIN (7-10) 05/13/25 09:30 05/20/25 09:29 05/13/25 13:17 4 MG Multivitamins Therapeutic (Multivitamin Tablet) 1 tab DAILY PO 05/14/25 09:00 06/13/25 08:59 05/14/25 07:50 1 TAB Ondansetron HCl (zoFRAN 4MG INJ) 4 mg Q4H PRN IVP NAUSEA 05/13/25 09:30 06/12/25 09:29 Potassium Chloride/Dextrose/ Sod Cl 1,000 ml @ 75 mls/hr [id number] IV 05/13/25 09:30 06/12/25 09:29 05/13/25 23:07 75 MLS/HR Simethicone (Mylicon) 40 mg TID PRN PO GI GAS 05/13/25 18:30 06/12/25 18:29 05/14/25 02:19 40 MG DIAGNOSTICS / RADIOLOGY: [ ] ASSESSMENT: Status post ileostomy, 05/13/2025, by Dr. Condon Prior history of LAR with diverting ileostomy in 02/17/2025, POA History of colostomy in 08/2024, POA History of malignant neoplasm of sigmoid colon, POA History of anemia, POA PLAN: Continue with close monitoring in medical-surgical floor Continue with pain control and IV fluids post surgery Continue with postsurgical care by Dr. Condon Home medication reconciled Continue with IS, and out of bed to chair twice daily A.m. labs Continue with GI prophylaxis with Pepcid, DVT prophylaxis with Lovenox Monitor patient closely patient is seen postoperatively in PACU and is sleepy, postanesthesia, we will monitor closely and see how patient progresses in the next 24-48 hours ATTESTATION BY PHYSICIAN I have seen and examined the patient. I reviewed the documentation, medical decision making, and treatment plan as noted by the mid-level provider above. I agree with the findings and plan of care. GRECIA WHITLEY MD, KATARZYNA B [employer]MENT WINDER May 14, 2025 09:15
--- NOTE | 2025-05-14 09:40 | NUR ---
DCP:HOME Pt currently lives at home with his Deb Gustafson [phone]. Pt does not have DME, home health, or provider services. Pt states that he is able to complete ADLs independently. PCP is Dr. Dav Carrero. At [place] pt will want to go home and family can assist with transportation. Addendum: 05/14/25 at 0943 by YA YATES SS Amended: Links added.
--- NOTE | 2025-05-14 12:19 | PN ---
[facility] PROGRESS NOTE Date of Visit: May 14, 2025 Time of Visit: 12:16 Events / Notes: [ 69-year-old male patient with past medical history for iron-deficiency anemia, rectal cancer who had undergone an Low anterior resection with diverting ileostomy on January of 2025. He underwent an ileostomy closure with small-bowel resection. Patient's vital signs have been stable. WBC today of 8.4, hemoglobin 10.6, platelets. Chemistry significant for glucose of 143. Patient's VSS. Patient has tolerated full liquid diet without any n/v. Patient's BBS clear. Abdomen is soft and not distended with active BS. Stoma site incision with dry stain. Patient has voided without difficulties. Poc discussed and encouraged ambulation and I/s exercises. Patient verbalized understanding and agreement. . ] Review of Systems: CONSTITUTIONAL: No malaise or change in sensation of wellbeing. ENMT: No rhinorrhea, otorrhea, sinus pain, ear ache. CARDIOVASCULAR: No angina, palpitations, orthopnea or paroxysmal dyspnea. RESPIRATORY: No SOB. GASTROINTESTINAL: No abdominal pain, nausea, vomiting, diarrhea, hematemesis, melena or change in the patient's habitual bowel movements consistency/number. GENITOURINARY: No dysuria, hematuria or change in bladder continence. MUSCULOSKELETAL: No new muscle pain or decrease in muscular strength. No new joint swelling, redness or tenderness. SKIN: No new rash. Physical Exam: GEN: Awake, alert, oriented in person, time and place, and in no acute distress. HEENT: No rhinorrhea. Oral pharyngeal mucosa is pink, moist CHEST: Inspection, palpation of the chest were unremarkable. Lung auscultation revealed normal breath sounds bilaterally. CARDIAC: Heart sounds are regular. ABD: Soft, non-tender and not distended. No peritoneal signs on palpation. No organomegaly. Normal bowel sounds. Stoma site incision dressing with dry stain EXT: No cyanosis or clubbing. No edema. SKIN: Intact. No rashes. JOINTS: No evidence of synovitis or acute arthritis. NEURO: Alert and oriented to name, place and person. Cranial nerve examination is unremarkable. No focal motor deficits. Normal speech. Strength is normal. Vital Signs (last 8hr) Date Time Temp Pulse Resp B/P (MAP) Pulse Ox O2 Delivery O2 Flow Rate FiO2 05/14/25 11:07 98.1 58 18 120/68 98 Room Air 05/14/25 07:51 98.2 56 18 119/74 98 Room Air 05/14/25 07:04 62 18 N/A Room Air 21 Laboratory: [ ] Laboratory: Test 05/14/25 04:36 Range/Units White Blood Count 8.4 4.8-10.8 K/uL Red Blood Count 3.43 L 4.50-6.20 MIL/uL Hemoglobin 10.6 L 14.0-18.0 g/dL Hematocrit 31.2 L 42-54 % Mean Corpuscular Volume 91.0 79-99 fL Mean Corpuscular Hemoglobin 30.9 27.0-33.0 pg Mean Corpuscular Hemoglobin Concent 34.0 32.0-36.0 g/dL Red Cell Distribution Width 12.9 11.0-15.5 % Platelet Count 133 130-400 K/uL Mean Platelet Volume 9.0 7.5-10.5 fL Immature Granulocyte % (Auto) 0.5 0-1 % Neutrophils (%) (Auto) 82.9 H 40.0-77.0 % Lymphocytes (%) (Auto) 10.8 L 21.0-51.0 % Monocytes (%) (Auto) 5.6 3.0-13.0 % Eosinophils (%) (Auto) 0.0 0.0-8.0 % Basophils (%) (Auto) 0.2 0.0-5.0 % Neutrophils # (Auto) 7.0 1.8-7.7 K/uL Lymphocytes # (Auto) 0.9 L 1.0-4.8 K/uL Monocytes # (Auto) 0.5 0.1-1.0 K/uL Eosinophils # (Auto) 0.00 0.00-0.70 K/uL Basophils # (Auto) 0.02 0.00-0.20 K/uL Absolute Immature Granulocyte (auto 0.04 0-1 K/uL Nucleated Red Blood Cells 0.0 0.0-0.19 % Sodium Level 138 136-145 mmol/L Potassium Level 4.4 3.5-5.1 mmol/L Chloride Level 103 101-111 mmol/L Carbon Dioxide Level 30 21-32 mmol/L Blood Urea Nitrogen 11 7-18 mg/dL Creatinine 0.7 0.5-1.3 mg/dL Glomerular Filtration Rate Calc 99 >90 mL/min Random Glucose 143 H 70-105 mg/dL Total Calcium 8.6 8.5-10.1 mg/dL Magnesium Level 1.80 1.80-2.40 mg/dL Current Medications Medications (Trade) Dose Ordered Sig/Alla Route PRN Reason Start Time Stop Time Status Last Admin Dose Admin Acetaminophen (TYLenol 325MG TAB) 650 mg Q4H PRN PO TEMPERATURE GREATER THAN 101 05/13/25 09:30 06/12/25 09:29 Acetaminophen/ Hydrocodone Bitart (NORco 5/325MG) 1 tab Q4H PRN PO MODERATE PAIN (4-6) 05/13/25 09:30 05/13/25 09:31 DC Albuterol (DUOneb) 1 udvial Q6H PRN IH sob OR WHEEZING 05/13/25 10:30 06/12/25 10:29 Enoxaparin Sodium (Lovenox) 40 mg DAILY SQ 05/14/25 09:00 06/13/25 08:59 05/14/25 07:52 40 MG Ertapenem 50 ml @ 100 mls/hr ONCALL IV 05/13/25 08:00 05/13/25 16:03 DC Famotidine (Pepcid 20mg Vial) 20 mg BID IV 05/13/25 21:00 06/12/25 20:59 05/14/25 07:50 20 MG Hydralazine HCl (APRESOLine 20MG INJ) 5 mg Q6H PRN IV ADMINISTER FOR SBP > 160 05/13/25 11:30 06/12/25 11:29 Magnesium Sulfate 50 ml @ 0 mls/hr PROTOCOL IV 05/14/25 06:00 06/13/25 05:59 05/14/25 07:55 25 MLS/HR Morphine Sulfate (morPHINE 2MG SYG) 2 mg Q3H PRN IV MODERATE PAIN (4-6) 05/13/25 09:30 05/20/25 09:29 Morphine Sulfate (morPHINE 4MG SYG) 4 mg Q3H PRN IV SEVERE PAIN (7-10) 05/13/25 09:30 05/20/25 09:29 05/13/25 13:17 4 MG Multivitamins Therapeutic (Multivitamin Tablet) 1 tab DAILY PO 05/14/25 09:00 06/13/25 08:59 05/14/25 07:50 1 TAB Ondansetron HCl (zoFRAN 4MG INJ) 4 mg Q4H PRN IVP NAUSEA 05/13/25 09:30 06/12/25 09:29 Potassium Chloride/Dextrose/ Sod Cl 1,000 ml @ 75 mls/hr [id number] IV 05/13/25 09:30 06/12/25 09:29 05/13/25 23:07 75 MLS/HR Simethicone (Mylicon) 40 mg TID PRN PO GI GAS 05/13/25 18:30 06/12/25 18:29 05/14/25 02:19 40 MG Diagnostics / Radiology: [COPY/PASTE HERE IF NO REPORTS PLEASE DELETE SECTION] Assessment: [ Ileostomy status History of rectal cancer] Plan: Advance diet as tolerated Encourage ambulation Encourage IS exercises Pain medicines as needed Antiemetics p.r.n. Plan for disposition in the next 24-48 hours. Please call with questions concerns, and change in clinical status Appreciate hospitalist's assistance in our patient care.] BIMAL LINDSEY CONTRACT COORDINATOR May 14, 2025 12:19
[2025-05-15] VITALS (7 sets, daily range): BP systolic 114–133; BP diastolic 68–76; PULSE 59–72; RESP 16–20; TEMP 97.8–98.2; O2SAT 96–98
[2025-05-15 04:37] LABS: IMMATURE GRANULOCYTE ABSOLUTE 0.04 K/uL (0-1); NUCLEATED RED BLOOD CELLS 0.0 % (0.0-0.19); PLATELET COUNT (AUTO) 169 K/uL (130-400); RED BLOOD CELL COUNT(AUTO) 3.90 MIL/uL (4.50-6.20); RED CELL DISTRIBUTION WIDTH 13.1 % (11.0-15.5); WHITE BLOOD COUNT (AUTO) 9.2 K/uL (4.8-10.8)
[2025-05-15 04:51] LABS: ASPARTATE AMINOTRANSFERASE 18.0 U/L (10-37); CREATININE 0.8 mg/dL (0.5-1.3); GLOMERULAR FILTR. RATE CALC 95.0 mL/min (>90); GLUCOSE,RANDOM 153.0 mg/dL (70-105); SODIUM SERUM 131.0 mmol/L (136-145); TOTAL PROTEIN, SERUM 7.3 g/dL (6.0-8.3); UREA NITROGEN, BLOOD 24.0 mg/dL (7-18)
[2025-05-15] MEDS: SODIUM CHLORIDE 1,000 MG TAB PO ONE (06:46)
--- NOTE | 2025-05-15 07:02 | PN ---
[facility] PROGRESS NOTE Date of Visit: May 15, 2025 Time of Visit: 07:02 Events / Notes: 69-year-old male patient with past medical history for iron-deficiency anemia, rectal cancer who had undergone an Low anterior resection with diverting ileostomy on January of 2025. He underwent an ileostomy closure with small-bowel resection. Patient's vital signs have been stable. WBC today of 8.4, hemoglobin 10.6, platelets. Chemistry significant for glucose of 143. Patient's VSS. Patient has tolerated full liquid diet without any n/v. Patient's BBS clear. Abdomen is soft and not distended with active BS. Stoma site incision with dry stain. Patient has voided without difficulties. Poc discussed and encouraged ambulation and I/s exercises. Patient verbalized understanding and agreement. . 05/15/25: Patient's VSS. He is having constant hiccups. He has been able to take in small amounts of fluids. Reports having one episode of emesis after taking vitamin. BBS are clear. Abdomen is soft but mildly distended. Stoma site i ncision with dry dressing. Active bs are present. He is voiding well. Has ambulated and reports passing small amount of flatus.] Review of Systems: CONSTITUTIONAL: No malaise or change in sensation of wellbeing. ENMT: No rhinorrhea, otorrhea, sinus pain, ear ache. CARDIOVASCULAR: No angina, palpitations, orthopnea or paroxysmal dyspnea. RESPIRATORY: No SOB. GASTROINTESTINAL: No abdominal pain, nausea, vomiting, diarrhea, hematemesis, melena or change in the patient's habitual bowel movements consistency/number. GENITOURINARY: No dysuria, hematuria or change in bladder continence. MUSCULOSKELETAL: No new muscle pain or decrease in muscular strength. No new joint swelling, redness or tenderness. SKIN: No new rash. Physical Exam: GEN: Awake, alert, oriented in person, time and place, and in no acute distress. HEENT: No rhinorrhea. Oral pharyngeal mucosa is pink, moist and within normal limits. CHEST: Inspection, palpation of the chest were unremarkable. Lung auscultation revealed normal breath sounds bilaterally. CARDIAC: Heart sounds are regular. ABD: Soft, non-tender and mildly distended. No peritoneal signs on palpation. No organomegaly. Normal bowel sounds. Stoma site incision dry and intact. EXT: No cyanosis or clubbing. No edema. SKIN: Intact. No rashes. JOINTS: No evidence of synovitis or acute arthritis. NEURO: Alert and oriented to name, place and person. No focal motor deficits. Normal speech.Strength is normal. Vital Signs (last 8hr) Date Time Temp Pulse Resp B/P (MAP) Pulse Ox O2 Delivery O2 Flow Rate FiO2 05/15/25 04:00 98.2 63 16 133/76 96 Room Air 05/15/25 01:18 70 18 N/A Room Air 21 05/14/25 23:54 98.6 65 20 149/83 94 Room Air Laboratory: [ ] Laboratory: Test 05/15/25 04:07 Range/Units White Blood Count 9.2 4.8-10.8 K/uL Red Blood Count 3.90 L 4.50-6.20 MIL/uL Hemoglobin 12.0 L 14.0-18.0 g/dL Hematocrit 35.1 L 42-54 % Mean Corpuscular Volume 90.0 79-99 fL Mean Corpuscular Hemoglobin 30.8 27.0-33.0 pg Mean Corpuscular Hemoglobin Concent 34.2 32.0-36.0 g/dL Red Cell Distribution Width 13.1 11.0-15.5 % Platelet Count 169 # 130-400 K/uL Mean Platelet Volume 9.6 7.5-10.5 fL Immature Granulocyte % (Auto) 0.4 0-1 % Neutrophils (%) (Auto) 89.2 H 40.0-77.0 % Lymphocytes (%) (Auto) 9.2 L 21.0-51.0 % Monocytes (%) (Auto) 1.1 L 3.0-13.0 % Eosinophils (%) (Auto) 0.0 0.0-8.0 % Basophils (%) (Auto) 0.1 0.0-5.0 % Neutrophils # (Auto) 8.2 H 1.8-7.7 K/uL Lymphocytes # (Auto) 0.8 L 1.0-4.8 K/uL Monocytes # (Auto) 0.1 0.1-1.0 K/uL Eosinophils # (Auto) 0.00 0.00-0.70 K/uL Basophils # (Auto) 0.01 0.00-0.20 K/uL Absolute Immature Granulocyte (auto 0.04 0-1 K/uL Nucleated Red Blood Cells 0.0 0.0-0.19 % White Cell Morphology Comment See comments Sodium Level 131 L 136-145 mmol/L Potassium Level 4.4 3.5-5.1 mmol/L Chloride Level 98 L 101-111 mmol/L Carbon Dioxide Level 29 21-32 mmol/L Blood Urea Nitrogen 24 H 7-18 mg/dL Creatinine 0.8 0.5-1.3 mg/dL Glomerular Filtration Rate Calc 95 >90 mL/min Random Glucose 153 H 70-105 mg/dL Total Calcium 8.9 8.5-10.1 mg/dL Magnesium Level 2.10 1.80-2.40 mg/dL Total Bilirubin 0.6 0.2-1.0 mg/dL Aspartate Amino Transf (AST/SGOT) 18 10-37 U/L Alanine Aminotransferase (ALT/SGPT) 20 12-78 U/L Alkaline Phosphatase 68 50-136 U/L Total Protein 7.3 6.0-8.3 g/dL Albumin 3.3 L 3.5-5.0 g/dL Current Medications Medications (Trade) Dose Ordered Sig/Alla Route PRN Reason Start Time Stop Time Status Last Admin Dose Admin Acetaminophen (TYLenol 325MG TAB) 650 mg Q4H PRN PO TEMPERATURE GREATER THAN 101 05/13/25 09:30 06/12/25 09:29 Acetaminophen/ Hydrocodone Bitart (NORco 5/325MG) 1 tab Q4H PRN PO MODERATE PAIN (4-6) 05/13/25 09:30 05/13/25 09:31 DC Albuterol (DUOneb) 1 udvial Q6H PRN IH sob OR WHEEZING 05/13/25 10:30 06/12/25 10:29 Dexamethasone (DeCADron 4 mg TAB) 8 mg ONCE PO 05/14/25 17:00 05/14/25 22:00 DC 05/14/25 17:33 8 MG Enoxaparin Sodium (Lovenox) 40 mg DAILY SQ 05/14/25 09:00 06/13/25 08:59 05/14/25 07:52 40 MG Ertapenem 50 ml @ 100 mls/hr ONCALL IV 05/13/25 08:00 05/13/25 16:03 DC Famotidine (Pepcid 20mg Vial) 20 mg BID IV 05/13/25 21:00 06/12/25 20:59 05/14/25 21:03 20 MG Hydralazine HCl (APRESOLine 20MG INJ) 5 mg Q6H PRN IV ADMINISTER FOR SBP > 160 05/13/25 11:30 06/12/25 11:29 Magnesium Sulfate 50 ml @ 0 mls/hr PROTOCOL IV 05/14/25 06:00 06/13/25 05:59 05/14/25 07:55 25 MLS/HR Metoclopramide HCl (regLAN 10MG IV) 10 mg ONCE IVP 05/14/25 17:00 05/14/25 22:00 DC 05/14/25 17:33 10 MG Morphine Sulfate (morPHINE 2MG SYG) 2 mg Q3H PRN IV MODERATE PAIN (4-6) 05/13/25 09:30 05/20/25 09:29 Morphine Sulfate (morPHINE 4MG SYG) 4 mg Q3H PRN IV SEVERE PAIN (7-10) 05/13/25 09:30 05/20/25 09:29 05/13/25 13:17 4 MG Multivitamins Therapeutic (Multivitamin Tablet) 1 tab DAILY PO 05/14/25 09:00 06/13/25 08:59 05/14/25 07:50 1 TAB Ondansetron HCl (zoFRAN 4MG INJ) 4 mg Q4H PRN IVP NAUSEA 05/13/25 09:30 06/12/25 09:29 05/14/25 17:33 4 MG Potassium Chloride/Dextrose/ Sod Cl 1,000 ml @ 75 mls/hr [id number] IV 05/13/25 09:30 06/12/25 09:29 05/15/25 01:37 75 MLS/HR Simethicone (Mylicon) 40 mg TID PRN PO GI GAS 05/13/25 18:30 06/12/25 18:29 05/14/25 02:19 40 MG Diagnostics / Radiology: [COPY/PASTE HERE IF NO REPORTS PLEASE DELETE SECTION] Assessment: [ Ileostomy status History of rectal cancer] Plan: Advance diet as tolerated Encourage ambulation Encourage IS exercises Pain medicines as needed Antiemetics p.r.n KUB today and repeat in am Plan for disposition in the next 24-48 hours. Please call with questions concerns, and change in clinical status Appreciate hospitalist's assistance in our patient care.] BIMAL LINDSEY NP May 15, 2025 07:02
[2025-05-15] MEDS: SUGAMMADEX SODIUM 200 MG/2 ML VIAL IV ONE (07:27)
[2025-05-15] MEDS: FAMOTIDINE 20MG VIAL IV ONE (07:27)
--- NOTE | 2025-05-15 10:02 | PN ---
[facility] PROGRESS NOTE Date of Service: May 15, 2025 Time of Service: 09:[address] Whitley SUBJECTIVE: [ 05/13 This is a 69-year-old male with prior history of malignant neoplasm of the sigmoid colon. Has prior history of colostomy in 08/2024 and low anterior resection with diverting ileostomy in 02/17/2025. Patient underwent closure of ileostomy today with small bowel resection. Patient was seen in PACU postprocedure. He appears very sleepy post anesthesia, he is able to tell me he is not in significant pain. Denies any chest pain, shortness of breath. No significant underlying medical history noted otherwise. We will continue to monitor this patient closely postoperatively. 05/14 patient was seen by nurse practitioner and physician during rounding in ro om 301. Patient is day one s/p ileostomy closure with small-bowel resection with Dr. Condon. WBC 8.4. H&H stable. Patient denies any shortness of breath, chest pain, nausea, vomiting or any other discomfort. Surgical site present with no signs of infection. We will continue to monitor patient in the meantime. A.m. labs. Disposition as per primary. 05/15 patient was seen by nurse practitioner and physician during rounding in room 301. Patient is on GI soft diet and that is tolerating well. Patient de nies any shortness of breath, chest pain, nausea, vomiting or any other discomfort other than pain to the surgical site. Leal catheter was already discontinued on 05/14/2025. We will continue to monitor patient in the meantime. Disposition per primary.] REVIEW OF SYSTEMS: CONSTITUTIONAL: Denies fevers, chills, or night sweats. No unintentional weight loss reported. NEUROLOGICAL: Denies headache, amaurosis fugax, motor weakness, sensory deficit, vertigo/spinning sensation, gait abnormalities, or tremors. ENT: No hearing loss, otalgia, otorrhea, rhinitis, rhinorrhea, hoarseness, or sore throat. CARDIOVASCULAR: Denies any exertional angina, dyspnea on exertion, orthopnea, paroxysmal nocturnal dyspnea, palpitations, life-threatening arrhythmias, claudication. PULMONARY: Denies any shortness of breath, cough, phlegm/sputum, hemoptysis, pleuritic chest pain. SLEEP: Denies morning headaches, daytime somnolence or napping. Denies difficulty falling asleep, staying asleep, waking from sleep. Denies knowledge of snoring. GASTROINTESTINAL: Denies any type of dysphagia to either liquids or solids. Denies nausea, vomiting, pyrosis, early satiety, abdominal pain, diarrhea, constipation, or changes in stool consistency or caliber. Denies coffee-ground emesis, hematemesis, hematochezia, or melanotic stools. Complains of pain to the surgical site. GENITOURINARY: Denies frequency, urgency, nocturia, hematuria or incontinence (Storage/Irritative symptoms.) Low urinary stream, straining to void, urinary intermittency or hesitancy, splitting of the voiding stream, terminal dribbling. ENDOCRINOLOGIC: Denies polyuria, polydipsia, polyphagia or heat/cold intolerances. HEMATOLOGIC: Denies thrombophilia/previous clots, or coagulopathy/bleeding disorders. ONCOLOGIC: Denies personal history of malignancy. DERMATOLOGIC: Denies rashes or pruritus. PSYCHIATRIC: Denies any suicidal or homicidal ideation. Denies hallucinations. PHYSICAL EXAM GENERAL APPEARANCE: The patient is awake, alert, and oriented, in no acute cardiopulmonary distress. NEUROLOGICAL: Cranial nerves II-XII grossly intact. Motor is 5/5 in bilateral upper and lower extremities proximal to distal. No sensory deficits. HEENT: Face is symmetric. Pupils are equal and reactive. Extraocular movements are intact. NECK: Supple. No JVD. No thyromegaly. No submental, submandibular, pre- /postauricular, occipital or supraclavicular lymphadenopathy. CHEST: Normal chest expansion. No Telemetry. LUNGS: Absence of any rales, rhonchi or any wheezing. CARDIOVASCULAR: Regular. S1 and S2 normal. No appreciable rubs, murmurs or gallops. ABDOMEN: Soft, nontender, and nondistended. There is no rebound, voluntary guarding, or rigidity. : Deferred. No Leal. EXTREMITIES: Non-edematous and not cyanotic. No clubbing. Good capillary re fill. SKIN: No skin breakdown. Vital Signs (last 8hr) Date Time Temp Pulse Resp B/P (MAP) Pulse Ox O2 Delivery O2 Flow Rate FiO2 05/15/25 08:00 98.2 66 16 131/71 97 Room Air 21 05/15/25 04:00 98.2 63 16 133/76 96 Room Air LABS: Laboratory: Test 05/15/25 04:07 Range/Units White Blood Count 9.2 4.8-10.8 K/uL Red Blood Count 3.90 L 4.50-6.20 MIL/uL Hemoglobin 12.0 L 14.0-18.0 g/dL Hematocrit 35.1 L 42-54 % Mean Corpuscular Volume 90.0 79-99 fL Mean Corpuscular Hemoglobin 30.8 27.0-33.0 pg Mean Corpuscular Hemoglobin Concent 34.2 32.0-36.0 g/dL Red Cell Distribution Width 13.1 11.0-15.5 % Platelet Count 169 # 130-400 K/uL Mean Platelet Volume 9.6 7.5-10.5 fL Immature Granulocyte % (Auto) 0.4 0-1 % Neutrophils (%) (Auto) 89.2 H 40.0-77.0 % Lymphocytes (%) (Auto) 9.2 L 21.0-51.0 % Monocytes (%) (Auto) 1.1 L 3.0-13.0 % Eosinophils (%) (Auto) 0.0 0.0-8.0 % Basophils (%) (Auto) 0.1 0.0-5.0 % Neutrophils # (Auto) 8.2 H 1.8-7.7 K/uL Lymphocytes # (Auto) 0.8 L 1.0-4.8 K/uL Monocytes # (Auto) 0.1 0.1-1.0 K/uL Eosinophils # (Auto) 0.00 0.00-0.70 K/uL Basophils # (Auto) 0.01 0.00-0.20 K/uL Absolute Immature Granulocyte (auto 0.04 0-1 K/uL Nucleated Red Blood Cells 0.0 0.0-0.19 % White Cell Morphology Comment See comments Sodium Level 131 L 136-145 mmol/L Potassium Level 4.4 3.5-5.1 mmol/L Chloride Level 98 L 101-111 mmol/L Carbon Dioxide Level 29 21-32 mmol/L Blood Urea Nitrogen 24 H 7-18 mg/dL Creatinine 0.8 0.5-1.3 mg/dL Glomerular Filtration Rate Calc 95 >90 mL/min Random Glucose 153 H 70-105 mg/dL Total Calcium 8.9 8.5-10.1 mg/dL Magnesium Level 2.10 1.80-2.40 mg/dL Total Bilirubin 0.6 0.2-1.0 mg/dL Aspartate Amino Transf (AST/SGOT) 18 10-37 U/L Alanine Aminotransferase (ALT/SGPT) 20 12-78 U/L Alkaline Phosphatase 68 50-136 U/L Total Protein 7.3 6.0-8.3 g/dL Albumin 3.3 L 3.5-5.0 g/dL Current Medications Medications (Trade) Dose Ordered Sig/Alla Route PRN Reason Start Time Stop Time Status Last Admin Dose Admin Acetaminophen (TYLenol 325MG TAB) 650 mg Q4H PRN PO TEMPERATURE GREATER THAN 101 05/13/25 09:30 06/12/25 09:29 Acetaminophen/ Hydrocodone Bitart (NORco 5/325MG) 1 tab Q4H PRN PO MODERATE PAIN (4-6) 05/13/25 09:30 05/13/25 09:31 DC Albuterol (DUOneb) 1 udvial Q6H PRN IH sob OR WHEEZING 05/13/25 10:30 06/12/25 10:29 Dexamethasone (DeCADron 4 mg TAB) 8 mg ONCE PO 05/14/25 17:00 05/14/25 22:00 DC 05/14/25 17:33 8 MG Enoxaparin Sodium (Lovenox) 40 mg DAILY SQ 05/14/25 09:00 06/13/25 08:59 05/15/25 09:09 40 MG Ertapenem 50 ml @ 100 mls/hr ONCALL IV 05/13/25 08:00 05/13/25 16:03 DC Famotidine (Pepcid 20mg Vial) 20 mg BID IV 05/13/25 21:00 06/12/25 20:59 05/15/25 09:08 20 MG Hydralazine HCl (APRESOLine 20MG INJ) 5 mg Q6H PRN IV ADMINISTER FOR SBP > 160 05/13/25 11:30 06/12/25 11:29 Magnesium Sulfate 50 ml @ 0 mls/hr PROTOCOL IV 05/14/25 06:00 06/13/25 05:59 05/14/25 07:55 25 MLS/HR Metoclopramide HCl (regLAN 10MG IV) 10 mg ONCE IVP 05/14/25 17:00 05/14/25 22:00 DC 05/14/25 17:33 10 MG Morphine Sulfate (morPHINE 2MG SYG) 2 mg Q3H PRN IV MODERATE PAIN (4-6) 05/13/25 09:30 05/20/25 09:29 Morphine Sulfate (morPHINE 4MG SYG) 4 mg Q3H PRN IV SEVERE PAIN (7-10) 05/13/25 09:30 05/20/25 09:29 05/13/25 13:17 4 MG Multivitamins Therapeutic (Multivitamin Tablet) 1 tab DAILY PO 05/14/25 09:00 06/13/25 08:59 05/15/25 09:08 1 TAB Ondansetron HCl (zoFRAN 4MG INJ) 4 mg Q4H PRN IVP NAUSEA 05/13/25 09:30 06/12/25 09:29 05/14/25 17:33 4 MG Potassium Chloride/Dextrose/ Sod Cl 1,000 ml @ 75 mls/hr [id number] IV 05/13/25 09:30 06/12/25 09:29 05/15/25 01:37 75 MLS/HR Simethicone (Mylicon) 40 mg TID PRN PO GI GAS 05/13/25 18:30 06/12/25 18:29 05/14/25 02:19 40 MG DIAGNOSTICS / RADIOLOGY: [ ] ASSESSMENT: Status post ileostomy, 05/13/2025, by Dr. Condon Prior history of LAR with diverting ileostomy in 02/17/2025, POA History of colostomy in 08/2024, POA History of malignant neoplasm of sigmoid colon, POA History of anemia, POA PLAN: Continue with close monitoring in medical-surgical floor Continue with pain control and IV fluids post surgery Continue with postsurgical care by Dr. Condon Home medication reconciled Continue with IS, and out of bed to chair twice daily A.m. labs Continue with GI prophylaxis with Pepcid, DVT prophylaxis with Lovenox Anticipated discharge [id number] hours ATTESTATION BY PHYSICIAN I have seen and examined the patient. I reviewed the documentation, medical decision making, and treatment plan as noted by the mid-level provider above. I agree with the findings and plan of care. GRECIA WHITLEY MD, [employer] May 15, 2025 10:02
[2025-05-15 11:08] LABS: CREATININE 0.7 mg/dL (0.5-1.3); GLOMERULAR FILTR. RATE CALC 99.0 mL/min (>90); GLUCOSE,RANDOM 129.0 mg/dL (70-105); SODIUM SERUM 130.0 mmol/L (136-145); UREA NITROGEN, BLOOD 23.0 mg/dL (7-18)
--- NOTE | 2025-05-15 15:37 | NUR ---
ABDOMINAL DRESSING CHANGE DONE.
--- NOTE | 2025-05-15 16:28 | HMCIMG ---
ABD 1VW REASON: R/O ILEUS/SBO FINDINGS: Single image of the abdomen was obtained. Distention of small bowel with oral contrast seen in the right cecum.. Bones and soft tissues appear unremarkable. There are no abnormal calcifications. There is no evidence of foreign body. IMPRESSION: 1. Adynamic ileus with distended loops of small bowel. I would recommend a Gastrografin small bowel follow-through
[2025-05-16] VITALS (9 sets, daily range): BP systolic 113–131; BP diastolic 71–84; PULSE 67–78; RESP 16–20; TEMP 97.8–98.7; O2SAT 96–98
[2025-05-16 05:26] LABS: IMMATURE GRANULOCYTE ABSOLUTE 0.03 K/uL (0-1); NUCLEATED RED BLOOD CELLS 0.0 % (0.0-0.19); PLATELET COUNT (AUTO) 149 K/uL (130-400); RED BLOOD CELL COUNT(AUTO) 3.53 MIL/uL (4.50-6.20); RED CELL DISTRIBUTION WIDTH 13.2 % (11.0-15.5); WHITE BLOOD COUNT (AUTO) 8.5 K/uL (4.8-10.8)
[2025-05-16 05:38] LABS: ASPARTATE AMINOTRANSFERASE 29.0 U/L (10-37); CREATININE 0.8 mg/dL (0.5-1.3); GLOMERULAR FILTR. RATE CALC 95.0 mL/min (>90); GLUCOSE,RANDOM 142.0 mg/dL (70-105); SODIUM SERUM 130.0 mmol/L (136-145); TOTAL PROTEIN, SERUM 6.6 g/dL (6.0-8.3); UREA NITROGEN, BLOOD 19.0 mg/dL (7-18)
[2025-05-16] MEDS: LACTATED RINGERS 1000ML 1,000 ML IV SCH (06:30)
[2025-05-16] MEDS: SODIUM CHLORIDE 1,000 MG TAB PO ONE (06:35)
--- NOTE | 2025-05-16 08:40 | PN ---
[facility] PROGRESS NOTE Date of Service: May 16, 2025 Time of Service: 08:[address] Whitley SUBJECTIVE: [ 05/13 This is a 69-year-old male with prior history of malignant neoplasm of the sigmoid colon. Has prior history of colostomy in 08/2024 and low anterior resection with diverting ileostomy in 02/17/2025. Patient underwent closure of ileostomy today with small bowel resection. P rajiv was seen in PACU postprocedure. He appears very sleepy post anesthesia, he is able to tell me he is not in significant pain. Denies any chest pain, shortness of breath. No significant underlying medical history noted otherwise. We will continue to monitor this patient closely postoperatively. 05/14 patient was seen by nurse practitioner and physician during rounding in [facility] m 301. Patient is day one s/p ileostomy closure with small-bowel resection with Dr. Condon. WBC 8.4. H&H stable. Patient denies any shortness of breath, chest pain, nausea, vomiting or any other discomfort. Surgical site present with no signs of infection. We will continue to monitor patient in the meantime. A.m. labs. Disposition as per primary. 05/15 patient was seen by nurse practitioner and physician during rounding in room 301. Patient is on GI soft diet and that is tolerating well. Patient den ies any shortness of breath, chest pain, nausea, vomiting or any other discomfort other than pain to the surgical site. Leal catheter was already discontinued on 05/14/2025. We will continue to monitor patient in the meantime. Disposition per primary. 05/16 patient was seen by nurse practitioner and physician during rounding in room 301. X-ray of the abdomen was performed and showed autonomic ileus with distended loops of small bowel. Gastrografin of small bowel was recommended. Nurse practitioner notified GI on above-stated results. They will follow up. Patient at this moment on GI soft diet and tolerating well. We will continue to monitor patient in the meantime. A.m. labs ] REVIEW OF SYSTEMS: CONSTITUTIONAL: Denies fevers, chills, or night sweats. No unintentional weight loss reported. NEUROLOGICAL: Denies headache, amaurosis fugax, motor weakness, sensory deficit, vertigo/spinning sensation, gait abnormalities, or tremors. ENT: No hearing loss, otalgia, otorrhea, rhinitis, rhinorrhea, hoarseness, or sore throat. CARDIOVASCULAR: Denies any exertional angina, dyspnea on exertion, orthopnea, paroxysmal nocturnal dyspnea, palpitations, life-threatening arrhythmias, claudication. PULMONARY: Denies any shortness of breath, cough, phlegm/sputum, hemoptysis, pleuritic chest pain. SLEEP: Denies morning headaches, daytime somnolence or napping. Denies difficulty falling asleep, staying asleep, waking from sleep. Denies knowledge of snoring. GASTROINTESTINAL: Denies any type of dysphagia to either liquids or solids. Denies nausea, vomiting, pyrosis, early satiety, abdominal pain, diarrhea, constipation, or changes in stool consistency or caliber. Denies coffee-ground emesis, hematemesis, hematochezia, or melanotic stools. Complains of pain to the surgical site. GENITOURINARY: Denies frequency, urgency, nocturia, hematuria or incontinence (Storage/Irritative symptoms.) Low urinary stream, straining to void, urinary intermittency or hesitancy, splitting of the voiding stream, terminal dribbling. ENDOCRINOLOGIC: Denies polyuria, polydipsia, polyphagia or heat/cold intolerances. HEMATOLOGIC: Denies thrombophilia/previous clots, or coagulopathy/bleeding disorders. ONCOLOGIC: Denies personal history of malignancy. DERMATOLOGIC: Denies rashes or pruritus. PSYCHIATRIC: Denies any suicidal or homicidal ideation. Denies hallucinations. PHYSICAL EXAM GENERAL APPEARANCE: The patient is awake, alert, and oriented, in no acute cardiopulmonary distress. NEUROLOGICAL: Cranial nerves II-XII grossly intact. Motor is 5/5 in bilateral upper and lower extremities proximal to distal. No sensory deficits. HEENT: Face is symmetric. Pupils are equal and reactive. Extraocular movements are intact. NECK: Supple. No JVD. No thyromegaly. No submental, submandibular, pre- /postauricular, occipital or supraclavicular lymphadenopathy. CHEST: Normal chest expansion. No Telemetry. LUNGS: Absence of any rales, rhonchi or any wheezing. CARDIOVASCULAR: Regular. S1 and S2 normal. No appreciable rubs, murmurs or gallops. ABDOMEN: Soft, nontender, and nondistended. There is no rebound, voluntary guarding, or rigidity. : Deferred. No Leal. EXTREMITIES: Non-edematous and not cyanotic. No clubbing. Good capillary refill. SKIN: No skin breakdown. Vital Signs (last 8hr) Date Time Temp Pulse Resp B/P (MAP) Pulse Ox O2 Delivery O2 Flow Rate FiO2 05/16/25 08:00 98.1 67 18 126/74 98 Room Air 21 05/16/25 07:24 18 N/A Room Air 05/16/25 03:56 98.2 67 16 120/71 96 Room Air LABS: Laboratory: Test 05/16/25 05:15 05/15/25 04:07 Range/Units White Blood Count 8.5 4.8-10.8 K/uL Red Blood Count 3.53 L 4.50-6.20 MIL/uL Hemoglobin 11.0 L 14.0-18.0 g/dL Hematocrit 32.5 L 42-54 % Mean Corpuscular Volume 92.1 79-99 fL Mean Corpuscular Hemoglobin 31.2 27.0-33.0 pg Mean Corpuscular Hemoglobin Concent 33.8 32.0-36.0 g/dL Red Cell Distribution Width 13.2 11.0-15.5 % Platelet Count 149 130-400 K/uL Mean Platelet Volume 9.1 7.5-10.5 fL Immature Granulocyte % (Auto) 0.4 0-1 % Neutrophils (%) (Auto) 80.9 H 40.0-77.0 % Lymphocytes (%) (Auto) 8.9 L 21.0-51.0 % Monocytes (%) (Auto) 9.5 3.0-13.0 % Eosinophils (%) (Auto) 0.2 0.0-8.0 % Basophils (%) (Auto) 0.1 0.0-5.0 % Neutrophils # (Auto) 6.9 1.8-7.7 K/uL Lymphocytes # (Auto) 0.8 L 1.0-4.8 K/uL Monocytes # (Auto) 0.8 0.1-1.0 K/uL Eosinophils # (Auto) 0.02 0.00-0.70 K/uL Basophils # (Auto) 0.01 0.00-0.20 K/uL Absolute Immature Granulocyte (auto 0.03 0-1 K/uL Nucleated Red Blood Cells 0.0 0.0-0.19 % Sodium Level 130 L 136-145 mmol/L Potassium Level 3.9 3.5-5.1 mmol/L Chloride Level 97 L 101-111 mmol/L Carbon Dioxide Level 31 21-32 mmol/L Blood Urea Nitrogen 19 H 7-18 mg/dL Creatinine 0.8 0.5-1.3 mg/dL Glomerular Filtration Rate Calc 95 >90 mL/min Random Glucose 142 H 70-105 mg/dL Total Calcium 8.6 8.5-10.1 mg/dL Magnesium Level 2.00 1.80-2.40 mg/dL Total Bilirubin 0.8 0.2-1.0 mg/dL Aspartate Amino Transf (AST/SGOT) 29 10-37 U/L Alanine Aminotransferase (ALT/SGPT) 34 12-78 U/L Alkaline Phosphatase 61 50-136 U/L Total Protein 6.6 6.0-8.3 g/dL Albumin 3.1 L 3.5-5.0 g/dL White Cell Morphology Comment See comments Current Medications Medications (Trade) Dose Ordered Sig/Alla Route PRN Reason Start Time Stop Time Status Last Admin Dose Admin Acetaminophen (TYLenol 325MG TAB) 650 mg Q4H PRN PO TEMPERATURE GREATER THAN 101 05/13/25 09:30 06/12/25 09:29 Acetaminophen/ Hydrocodone Bitart (NORco 5/325MG) 1 tab Q4H PRN PO MODERATE PAIN (4-6) 05/13/25 09:30 05/13/25 09:31 DC Albuterol (DUOneb) 1 udvial Q6H PRN IH sob OR WHEEZING 05/13/25 10:30 06/12/25 10:29 Dexamethasone (DeCADron 4 mg TAB) 8 mg ONCE PO 05/14/25 17:00 05/14/25 22:00 DC 05/14/25 17:33 8 MG Enoxaparin Sodium (Lovenox) 40 mg DAILY SQ 05/14/25 09:00 06/13/25 08:59 05/16/25 07:52 40 MG Ertapenem 50 ml @ 100 mls/hr ONCALL IV 05/13/25 08:00 05/13/25 16:03 DC Famotidine (Pepcid 20mg Vial) 20 mg BID IV 05/13/25 21:00 06/12/25 20:59 05/16/25 07:49 20 MG Hydralazine HCl (APRESOLine 20MG INJ) 5 mg Q6H PRN IV ADMINISTER FOR SBP > 160 05/13/25 11:30 06/12/25 11:29 Lactated Ringer's 1,000 ml @ 75 mls/hr [id number] IV 05/16/25 06:30 06/15/25 06:29 Magnesium Sulfate 50 ml @ 0 mls/hr PROTOCOL IV 05/14/25 06:00 06/13/25 05:59 05/14/25 07:55 25 MLS/HR Metoclopramide HCl (regLAN 10MG IV) 10 mg ONCE IVP 05/14/25 17:00 05/14/25 22:00 DC 05/14/25 17:33 10 MG Morphine Sulfate (morPHINE 2MG SYG) 2 mg Q3H PRN IV MODERATE PAIN (4-6) 05/13/25 09:30 05/20/25 09:29 Morphine Sulfate (morPHINE 4MG SYG) 4 mg Q3H PRN IV SEVERE PAIN (7-10) 05/13/25 09:30 05/20/25 09:29 05/13/25 13:17 4 MG Multivitamins Therapeutic (Multivitamin Tablet) 1 tab DAILY PO 05/14/25 09:00 06/13/25 08:59 05/15/25 09:08 1 TAB Ondansetron HCl (zoFRAN 4MG INJ) 4 mg Q4H PRN IVP NAUSEA 05/13/25 09:30 06/12/25 09:29 05/15/25 15:18 4 MG Potassium Chloride/Dextrose/ Sod Cl 1,000 ml @ 75 mls/hr [id number] IV 05/13/25 09:30 06/12/25 09:29 05/15/25 21:22 75 MLS/HR Simethicone (Mylicon) 40 mg TID PRN PO GI GAS 05/13/25 18:30 06/12/25 18:29 05/15/25 15:18 40 MG DIAGNOSTICS / RADIOLOGY: [ ] ASSESSMENT: Status post ileostomy, 05/13/2025, by Dr. Condon Prior history of LAR with diverting ileostomy in 02/17/2025, POA History of colostomy in 08/2024, POA History of malignant neoplasm of sigmoid colon, POA History of anemia, POA PLAN: Continue with close monitoring in medical-surgical floor Continue with pain control and IV fluids post surgery Continue with postsurgical care by Dr. Condon X-ray abdomen showed adynamic ileus with distended loops of small bowel recommended Gastrografin of small-bowel Home medication reconciled Continue with IS, and out of bed to chair twice daily A.m. labs Continue with GI prophylaxis with Pepcid, DVT prophylaxis with Lovenox Anticipated discharge [id number] hours ATTESTATION BY PHYSICIAN I have seen and examined the patient. I reviewed the documentation, medical dec ision making, and treatment plan as noted by the mid-level provider above. I agree with the findings and plan of care. GRECIA WHITLEY MD, [employer] B LAMINATION TECHNICIAN May 16, 2025 08:40
--- NOTE | 2025-05-16 10:20 | PN ---
[facility] PROGRESS NOTE Date of Visit: May 16, 2025 Time of Visit: 10:19 Events / Notes: 69-year-old male patient with past medical history for iron-deficiency anemia, rectal cancer who had undergone an Low anterior resection with diverting ileostomy on January of 2025. He underwent an ileostomy closure with small-bowel resection. Patient's vital signs have been stable. WBC today of 8.4, hemoglobin 10.6, platelets. Chemistry significant for glucose of 143. Patient's VSS. Patient has tolerated full liquid diet without any n/v. Patient's BBS clear. Abdomen is soft and not distended with active BS. Stoma site incision with dry stain. Patient has voided without difficulties. Poc discussed and encouraged ambulation and I/s exercises. Patient verbalized understanding and agreement. . 05/15/25: Patient's VSS. He is having constant hiccups. He has been able to take in small amounts of fluids. Reports having one episode of emesis after taking vitamin. BBS are clear. Abdomen is soft but mildly distended. Stoma site i ncision with dry dressing. Active bs are present. He is voiding well. Has ambulated and reports passing small amount of flatus. 05/16/25: VSS. Patient reports he continues with hiccups. He states she has had several BMs but continues to have nausea. No emesis reported. Informed of possible need to place [place] if vomiting begins. ] Review of Systems: CONSTITUTIONAL: No malaise or change in sensation of wellbeing. ENMT: No rhinorrhea, otorrhea, sinus pain, ear ache. CARDIOVASCULAR: No angina, palpitations, orthopnea or paroxysmal dyspnea. RESPIRATORY: No SOB. GASTROINTESTINAL: No abdominal pain, nausea, vomiting, diarrhea, hematemesis, melena or change in the patient's habitual bowel movements consistency/number. GENITOURINARY: No dysuria, hematuria or change in bladder continence. MUSCULOSKELETAL: No new muscle pain or decrease in muscular strength. No new joint swelling, redness or tenderness. SKIN: No new rash. Physical Exam: GEN: Awake, alert, oriented in person, time and place, and in no acute distress. HEENT: No rhinorrhea. Oral pharyngeal mucosa is pink, moist and within normal limits. CHEST: Inspection, palpation of the chest were unremarkable. Lung auscultation revealed normal breath sounds bilaterally. CARDIAC: Heart sounds are regular. ABD: Soft, non-tender and mildly distended. No peritoneal signs on palpation. No organomegaly. Normal bowel sounds. Stoma site incision dry and intact. EXT: No cyanosis or clubbing. No edema. SKIN: Intact. No rashes. JOINTS: No evidence of synovitis or acute arthritis. NEURO: Alert and oriented to name, place and person. No focal motor deficits. Normal speech.Strength is normal. Vital Signs (last 8hr) Date Time Temp Pulse Resp B/P (MAP) Pulse Ox O2 Delivery O2 Flow Rate FiO2 05/16/25 08:00 98 Room Air* 0 21 05/16/25 08:00 98.1 67 18 126/74 98 Room Air 21 05/16/25 07:24 18 N/A Room Air 05/16/25 03:56 98.2 67 16 120/71 96 Room Air Laboratory: [ ] Laboratory: Test 05/16/25 05:15 05/15/25 04:07 Range/Units White Blood Count 8.5 4.8-10.8 K/uL Red Blood Count 3.53 L 4.50-6.20 MIL/uL Hemoglobin 11.0 L 14.0-18.0 g/dL Hematocrit 32.5 L 42-54 % Mean Corpuscular Volume 92.1 79-99 fL Mean Corpuscular Hemoglobin 31.2 27.0-33.0 pg Mean Corpuscular Hemoglobin Concent 33.8 32.0-36.0 g/dL Red Cell Distribution Width 13.2 11.0-15.5 % Platelet Count 149 130-400 K/uL Mean Platelet Volume 9.1 7.5-10.5 fL Immature Granulocyte % (Auto) 0.4 0-1 % Neutrophils (%) (Auto) 80.9 H 40.0-77.0 % Lymphocytes (%) (Auto) 8.9 L 21.0-51.0 % Monocytes (%) (Auto) 9.5 3.0-13.0 % Eosinophils (%) (Auto) 0.2 0.0-8.0 % Basophils (%) (Auto) 0.1 0.0-5.0 % Neutrophils # (Auto) 6.9 1.8-7.7 K/uL Lymphocytes # (Auto) 0.8 L 1.0-4.8 K/uL Monocytes # (Auto) 0.8 0.1-1.0 K/uL Eosinophils # (Auto) 0.02 0.00-0.70 K/uL Basophils # (Auto) 0.01 0.00-0.20 K/uL Absolute Immature Granulocyte (auto 0.03 0-1 K/uL Nucleated Red Blood Cells 0.0 0.0-0.19 % Sodium Level 130 L 136-145 mmol/L Potassium Level 3.9 3.5-5.1 mmol/L Chloride Level 97 L 101-111 mmol/L Carbon Dioxide Level 31 21-32 mmol/L Blood Urea Nitrogen 19 H 7-18 mg/dL Creatinine 0.8 0.5-1.3 mg/dL Glomerular Filtration Rate Calc 95 >90 mL/min Random Glucose 142 H 70-105 mg/dL Total Calcium 8.6 8.5-10.1 mg/dL Magnesium Level 2.00 1.80-2.40 mg/dL Total Bilirubin 0.8 0.2-1.0 mg/dL Aspartate Amino Transf (AST/SGOT) 29 10-37 U/L Alanine Aminotransferase (ALT/SGPT) 34 12-78 U/L Alkaline Phosphatase 61 50-136 U/L Total Protein 6.6 6.0-8.3 g/dL Albumin 3.1 L 3.5-5.0 g/dL White Cell Morphology Comment See comments Current Medications Medications (Trade) Dose Ordered Sig/Alla Route PRN Reason Start Time Stop Time Status Last Admin Dose Admin Acetaminophen (TYLenol 325MG TAB) 650 mg Q4H PRN PO TEMPERATURE GREATER THAN 101 05/13/25 09:30 06/12/25 09:29 Acetaminophen/ Hydrocodone Bitart (NORco 5/325MG) 1 tab Q4H PRN PO MODERATE PAIN (4-6) 05/13/25 09:30 05/13/25 09:31 DC Albuterol (DUOneb) 1 udvial Q6H PRN IH sob OR WHEEZING 05/13/25 10:30 06/12/25 10:29 Dexamethasone (DeCADron 4 mg TAB) 8 mg ONCE PO 05/14/25 17:00 05/14/25 22:00 DC 05/14/25 17:33 8 MG Enoxaparin Sodium (Lovenox) 40 mg DAILY SQ 05/14/25 09:00 06/13/25 08:59 05/16/25 07:52 40 MG Ertapenem 50 ml @ 100 mls/hr ONCALL IV 05/13/25 08:00 05/13/25 16:03 DC Famotidine (Pepcid 20mg Vial) 20 mg BID IV 05/13/25 21:00 06/12/25 20:59 05/16/25 07:49 20 MG Hydralazine HCl (APRESOLine 20MG INJ) 5 mg Q6H PRN IV ADMINISTER FOR SBP > 160 05/13/25 11:30 06/12/25 11:29 Lactated Ringer's 1,000 ml @ 75 mls/hr [id number] IV 05/16/25 06:30 06/15/25 06:29 Magnesium Sulfate 50 ml @ 0 mls/hr PROTOCOL IV 05/14/25 06:00 06/13/25 05:59 05/14/25 07:55 25 MLS/HR Metoclopramide HCl (regLAN 10MG IV) 10 mg ONCE IVP 05/14/25 17:00 05/14/25 22:00 DC 05/14/25 17:33 10 MG Morphine Sulfate (morPHINE 2MG SYG) 2 mg Q3H PRN IV MODERATE PAIN (4-6) 05/13/25 09:30 05/20/25 09:29 Morphine Sulfate (morPHINE 4MG SYG) 4 mg Q3H PRN IV SEVERE PAIN (7-10) 05/13/25 09:30 05/20/25 09:29 05/13/25 13:17 4 MG Multivitamins Therapeutic (Multivitamin Tablet) 1 tab DAILY PO 05/14/25 09:00 06/13/25 08:59 05/15/25 09:08 1 TAB Ondansetron HCl (zoFRAN 4MG INJ) 4 mg Q4H PRN IVP NAUSEA 05/13/25 09:30 06/12/25 09:29 05/15/25 15:18 4 MG Potassium Chloride/Dextrose/ Sod Cl 1,000 ml @ 75 mls/hr [id number] IV 05/13/25 09:30 05/16/25 10:09 DC 05/15/25 21:22 75 MLS/HR Simethicone (Mylicon) 40 mg TID PRN PO GI GAS 8/20/25 18:30 06/12/25 18:29 05/15/25 15:18 40 MG Sodium Chloride (Sodium Chloride) 2,000 mg ONCE PO 05/16/25 09:00 06/15/25 08:59 Diagnostics / Radiology: [COPY/PASTE HERE IF NO REPORTS PLEASE DELETE SECTION] Assessment: [ Ileostomy status History of rectal cancer] Plan: Diet as tolerated Encourage ambulation Encourage IS exercises Pain medicines as needed Antiemetics p.r.n Repeat KUB in am NG tube to LIS if patient has emesis Plan for disposition in the next 24-48 hours. Please call with questions concerns, and change in clinical status Appreciate hospitalist's assistance in our patient care.] BIMAL LINDSEY NP May 16, 2025 10:20
--- NOTE | 2025-05-16 10:37 | HMCIMG ---
ABD 1VW REASON: evaluate for ileus COMPARISON: Prior study from 05/15/2025 is available. FINDINGS: Single image of the abdomen was obtained. Bowel gas pattern is a dilated loops of small bowel which are fluid-filled with faint amount of Gastrografin.. Bones and soft tissues appear unremarkable. There are no abnormal calcifications. There is no evidence of foreign body. IMPRESSION: 1 dilated dilated loops of small bowel which are fluid-filled with faint amount of Gastrografin suggesting of adynamic ileus.
[2025-05-16] MEDS: SODIUM CHLORIDE 1,000 MG TAB PO SCH (11:05)
--- NOTE | 2025-05-16 12:30 | NUR ---
PROVIDER NOTIFIED OF ABDOMINAL X RAY REPORT, SHOWING (dilated loops of small bowel which are fluid-filled with faint amount of Gastrografin suggesting of adynamic ileus). PER CÉSAR, EDUCATE THE PATIENT ON NEED TO WALK. NG TUBE TO INSERTING IN PATIENT HAS NEW ONSET OF VOMITING. LAST BOWEL MOVEMENT 05/16/25. Addendum: 05/16/25 at 1234 by GAVIOTA DAVIS RN RN Amended: Links added.
--- NOTE | 2025-05-16 17:43 | NUR ---
CONTACTED PROVIDER TO REPORT SOAKED 4X4'S ON ABDOMINAL ILEOSTOMY CLOSURE. DENIES PAIN TO AREA. PATIENT STATED HE HAS ALSO HAD ANOTHER 2 BOWEL MOVEMENTS. PER PROVIDER, CONTINUE WITH DRESSING CHANGE INSTRUCTIONS AND PATIENT TO HAVE CBC, CMP, AND KUB IN AM. Addendum: 05/16/25 at 1747 by GAVIOTA DAVIS RN RN Amended: Links added.
[2025-05-17] VITALS (7 sets, daily range): BP systolic 109–138; BP diastolic 69–75; PULSE 74–115; RESP 18–20; TEMP 97.8–98.5; O2SAT 95–99
[2025-05-17 05:17] LABS: IMMATURE GRANULOCYTE ABSOLUTE 0.03 K/uL (0-1); NUCLEATED RED BLOOD CELLS 0.0 % (0.0-0.19); PLATELET COUNT (AUTO) 149 K/uL (130-400); RED BLOOD CELL COUNT(AUTO) 3.57 MIL/uL (4.50-6.20); RED CELL DISTRIBUTION WIDTH 13.0 % (11.0-15.5); WHITE BLOOD COUNT (AUTO) 7.4 K/uL (4.8-10.8)
[2025-05-17 05:33] LABS: ASPARTATE AMINOTRANSFERASE 26.0 U/L (10-37); CREATININE 0.6 mg/dL (0.5-1.3); GLOMERULAR FILTR. RATE CALC 103.0 mL/min (>90); GLUCOSE,RANDOM 123.0 mg/dL (70-105); SODIUM SERUM 133.0 mmol/L (136-145); TOTAL PROTEIN, SERUM 7.0 g/dL (6.0-8.3); UREA NITROGEN, BLOOD 21.0 mg/dL (7-18)
[2025-05-17] MEDS ORDERED: MAGNESIUM 2GM PREMIX 50ML 50 ML IV SCH (07:30)
--- NOTE | 2025-05-17 10:30 | NUR ---
PATIENT REPORTING NOW 10 EPISODES OF VOMITING "DARK COLORED" EMESIS. NO EMESIS WITNESSED BY NURSE. WILL PROCEED WITH NG TUBE TO BE INSERTED AND PATIENT KEPT NPO. Addendum: 05/17/25 at 1034 by GAVIOTA DAVIS RN RN Amended: Links added.
--- NOTE | 2025-05-17 10:33 | PN ---
[facility] PROGRESS NOTE Date of Service: May 17, 2025 Time of Service: 10:[address] Whitley SUBJECTIVE: [ 05/13 This is a 69-year-old male with prior history of malignant neoplasm of the sigmoid colon. Has prior history of colostomy in 08/2024 and low anterior resection with diverting ileostomy in 02/17/2025. Patient underwent closure of ileostomy today with small bowel resection. Patient was seen in PACU postprocedure. He appears very sleepy post anesthesia, he is able to tell me he is not in significant pain. Denies any chest pain, shortness of breath. No significant underlying medical history noted otherwise. We will continue to monitor this patient closely postoperatively. 05/14 patient was seen by nurse practitioner and physician during rounding in ro om 301. Patient is day one s/p ileostomy closure with small-bowel resection with Dr. Condon. WBC 8.4. H&H stable. Patient denies any shortness of breath, chest pain, nausea, vomiting or any other discomfort. Surgical site present with no signs of infection. We will continue to monitor patient in the meantime. A.m. labs. Disposition as per primary. 05/15 patient was seen by nurse practitioner and physician during rounding in room 301. Patient is on GI soft diet and that is tolerating well. Patient de nies any shortness of breath, chest pain, nausea, vomiting or any other discomfort other than pain to the surgical site. Leal catheter was already discontinued on 05/14/2025. We will continue to monitor patient in the meantime. Disposition per primary. 05/16 patient was seen by nurse practitioner and physician during rounding in room 301. X-ray of the abdomen was performed and showed autonomic ileus with distended loops of small bowel. Gastrografin of small bowel was recommended. Nurse practitioner notified GI on above-stated results. They will follow up. Patient at this moment on GI soft diet and tolerating well. We will continue to monitor patient in the meantime. A.m. labs 05/17 patient was seen by nurse practitioner and physician during rounding in room 301. Patient is s/p KUB which showed adenomatous ileus. 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 Patient also was vomiting throughout the night. Patient also will receive 20 mEq of IV potassium and 2 g of magnesium. We will continue to monitor patient in the meantime. A.m. labs. Disposition as per primary] REVIEW OF SYSTEMS: CONSTITUTIONAL: Denies fevers, chills, or night sweats. No unintentional weight loss reported. NEUROLOGICAL: Denies headache, amaurosis fugax, motor weakness, sensory deficit, vertigo/spinning sensation, gait abnormalities, or tremors. ENT: No hearing loss, otalgia, otorrhea, rhinitis, rhinorrhea, hoarseness, or sore throat. CARDIOVASCULAR: Denies any exertional angina, dyspnea on exertion, orthopnea, paroxysmal nocturnal dyspnea, palpitations, life-threatening arrhythmias, cla udication. PULMONARY: Denies any shortness of breath, cough, phlegm/sputum, hemoptysis, pleuritic chest pain. SLEEP: Denies morning headaches, daytime somnolence or napping. Denies difficulty falling asleep, staying asleep, waking from sleep. Denies knowledge of snoring. GASTROINTESTINAL: Denies any type of dysphagia to either liquids or solids. Denies pyrosis, early satiety, abdominal pain, diarrhea, constipation, or changes in stool consistency or caliber. Denies coffee-ground emesis, hematemesis, hematochezia, or melanotic stools. Complains of pain to the surgical site. Complains of nausea and vomiting GENITOURINARY: Denies frequency, urgency, nocturia, hematuria or incontinence (Storage/Irritative symptoms.) Low urinary stream, straining to void, urinary intermittency or hesitancy, splitting of the voiding stream, terminal dribbling. ENDOCRINOLOGIC: Denies polyuria, polydipsia, polyphagia or heat/cold intolerances. HEMATOLOGIC: Denies thrombophilia/previous clots, or coagulopathy/bleeding disorders. ONCOLOGIC: Denies personal history of malignancy. DERMATOLOGIC: Denies rashes or pruritus. PSYCHIATRIC: Denies any suicidal or homicidal ideation. Denies hallucinations. PHYSICAL EXAM GENERAL APPEARANCE: The patient is awake, alert, and oriented, in no acute cardiopulmonary distress. NEUROLOGICAL: Cranial nerves II-XII grossly intact. Motor is 5/5 in bilateral upper and lower extremities proximal to distal. No sensory deficits. HEENT: Face is symmetric. Pupils are equal and reactive. Extraocular movements are intact. NECK: Supple. No JVD. No thyromegaly. No submental, submandibular, pre- /postauricular, occipital or supraclavicular lymphadenopathy. CHEST: Normal chest expansion. No Telemetry. LUNGS: Absence of any rales, rhonchi or any wheezing. CARDIOVASCULAR: Regular. S1 and S2 normal. No appreciable rubs, murmurs or gallops. ABDOMEN: Soft, nontender, and nondistended. There is no rebound, voluntary guarding, or rigidity. : Deferred. No Leal. EXTREMITIES: Non-edematous and not cyanotic. No clubbing. Good capillary refill. SKIN: No skin breakdown. Vital Signs (last 8hr) Date Time Temp Pulse Resp B/P (MAP) Pulse Ox O2 Delivery O2 Flow Rate FiO2 05/17/25 08:00 98.1 74 18 138/73 99 Room Air 21 05/17/25 07:46 18 N/A Room Air 21 LABS: Laboratory: Test 05/17/25 04:47 Range/Units White Blood Count 7.4 4.8-10.8 K/uL Red Blood Count 3.57 L 4.50-6.20 MIL/uL Hemoglobin 11.0 L 14.0-18.0 g/dL Hematocrit 32.1 L 42-54 % Mean Corpuscular Volume 89.9 79-99 fL Mean Corpuscular Hemoglobin 30.8 27.0-33.0 pg Mean Corpuscular Hemoglobin Concent 34.3 32.0-36.0 g/dL Red Cell Distribution Width 13.0 11.0-15.5 % Platelet Count 149 130-400 K/uL Mean Platelet Volume 9.9 7.5-10.5 fL Immature Granulocyte % (Auto) 0.4 0-1 % Neutrophils (%) (Auto) 82.0 H 40.0-77.0 % Lymphocytes (%) (Auto) 9.7 L 21.0-51.0 % Monocytes (%) (Auto) 7.8 3.0-13.0 % Eosinophils (%) (Auto) 0.1 0.0-8.0 % Basophils (%) (Auto) 0.0 0.0-5.0 % Neutrophils # (Auto) 6.1 1.8-7.7 K/uL Lymphocytes # (Auto) 0.7 L 1.0-4.8 K/uL Monocytes # (Auto) 0.6 0.1-1.0 K/uL Eosinophils # (Auto) 0.01 0.00-0.70 K/uL Basophils # (Auto) 0.00 0.00-0.20 K/uL Absolute Immature Granulocyte (auto 0.03 0-1 K/uL Nucleated Red Blood Cells 0.0 0.0-0.19 % Sodium Level 133 L 136-145 mmol/L Potassium Level 3.6 3.5-5.1 mmol/L Chloride Level 96 L 101-111 mmol/L Carbon Dioxide Level 29 21-32 mmol/L Blood Urea Nitrogen 21 H 7-18 mg/dL Creatinine 0.6 0.5-1.3 mg/dL Glomerular Filtration Rate Calc 103 >90 mL/min Random Glucose 123 H 70-105 mg/dL Total Calcium 8.6 8.5-10.1 mg/dL Magnesium Level 1.80 1.80-2.40 mg/dL Total Bilirubin 1.1 #H 0.2-1.0 mg/dL Aspartate Amino Transf (AST/SGOT) 26 10-37 U/L Alanine Aminotransferase (ALT/SGPT) 38 12-78 U/L Alkaline Phosphatase 67 50-136 U/L Total Protein 7.0 6.0-8.3 g/dL Albumin 3.3 L 3.5-5.0 g/dL Current Medications Medications (Trade) Dose Ordered Sig/Alla Route PRN Reason Start Time Stop Time Status Last Admin Dose Admin Acetaminophen (TYLenol 325MG TAB) 650 mg Q4H PRN PO TEMPERATURE GREATER THAN 101 05/13/25 09:30 06/12/25 09:29 Acetaminophen/ Hydrocodone Bitart (NORco 5/325MG) 1 tab Q4H PRN PO MODERATE PAIN (4-6) 05/13/25 09:30 05/13/25 09:31 DC Albuterol (DUOneb) 1 udvial Q6H PRN IH sob OR WHEEZING 05/13/25 10:30 06/12/25 10:29 Dexamethasone (DeCADron 4 mg TAB) 8 mg ONCE PO 05/14/25 17:00 05/14/25 22:00 DC 05/14/25 17:33 8 MG Enoxaparin Sodium (Lovenox) 40 mg DAILY SQ 05/14/25 09:00 06/13/25 08:59 05/17/25 08:34 40 MG Ertapenem 50 ml @ 100 mls/hr ONCALL IV 05/13/25 08:00 05/13/25 16:03 DC Famotidine (Pepcid 20mg Vial) 20 mg BID IV 05/13/25 21:00 06/12/25 20:59 05/17/25 08:32 20 MG Hydralazine HCl (APRESOLine 20MG INJ) 5 mg Q6H PRN IV ADMINISTER FOR SBP > 160 05/13/25 11:30 06/12/25 11:29 Lactated Ringer's 1,000 ml @ 75 mls/hr [id number] IV 05/16/25 06:30 06/15/25 06:29 05/17/25 04:00 75 MLS/HR Magnesium Sulfate 50 ml @ 0 mls/hr PROTOCOL IV 05/14/25 06:00 06/13/25 05:59 05/14/25 07:55 25 MLS/HR Magnesium Sulfate 50 ml @ 0 mls/hr PROTOCOL IV 05/17/25 07:30 05/17/25 07:23 DC Metoclopramide HCl (regLAN 10MG IV) 10 mg ONCE IVP 05/14/25 17:00 05/14/25 22:00 DC 05/14/25 17:33 10 MG Metoclopramide HCl (regLAN 10MG IV) 10 mg Q8H5 PRN IVP OTHER [SEE ORDER COMMENTS] 05/16/25 10:30 06/15/25 10:29 05/16/25 21:53 10 MG Morphine Sulfate (morPHINE 2MG SYG) 2 mg Q3H PRN IV MODERATE PAIN (4-6) 05/13/25 09:30 05/20/25 09:29 Morphine Sulfate (morPHINE 4MG SYG) 4 mg Q3H PRN IV SEVERE PAIN (7-10) 05/13/25 09:30 05/20/25 09:29 05/13/25 13:17 4 MG Multivitamins Therapeutic (Multivitamin Tablet) 1 tab DAILY PO 05/14/25 09:00 06/13/25 08:59 05/15/25 09:08 1 TAB Ondansetron HCl (zoFRAN 4MG INJ) 4 mg Q4H PRN IVP NAUSEA 05/13/25 09:30 06/12/25 09:29 05/15/25 15:18 4 MG Potassium Chloride/Dextrose/ Sod Cl 1,000 ml @ 75 mls/hr [id number] IV 05/13/25 09:30 05/16/25 10:09 DC 05/15/25 21:22 75 MLS/HR Simethicone (Mylicon) 40 mg TID PRN PO GI GAS 05/13/25 18:30 06/12/25 18:29 05/15/25 15:18 40 MG Sodium Chloride (Sodium Chloride) 2,000 mg ONCE PO 05/16/25 09:00 05/16/25 19:00 DC 05/16/25 11:05 2,000 MG DIAGNOSTICS / RADIOLOGY: [ ] ASSESSMENT: Status post ileostomy, 05/13/2025, by Dr. Condno Prior history of LAR with diverting ileostomy in 02/17/2025, POA Adynamic ileus Per x-ray abdomen 05/16/2025 History of colostomy in 08/2024, POA History of malignant neoplasm of sigmoid colon, POA History of anemia, POA PLAN: Continue with close monitoring in medical-surgical floor Continue with pain control and IV fluids post surgery Continue with postsurgical care by Dr. Condon X-ray abdomen showed adynamic ileus with distended loops of small bowel recommended Gastrografin of small-bowel Repeat x-ray showed adenomas ileus Home medication reconciled Continue with IS, and out of bed to chair twice daily A.m. labs Continue with GI prophylaxis with Pepcid, DVT prophylaxis with Lovenox ATTESTATION BY PHYSICIAN I have seen and examined the patient. I reviewed the documentation, medical decision making, and treatment plan as noted by the mid-level provider above. I agree with the findings and plan of care. GRECIA WHITLEY MD, [employer] EXAMINER AND ADJUSTER May 17, 2025 10:33
--- NOTE | 2025-05-17 11:09 | NUR ---
NG TUBE PLACED PER ORDERS. PLACEMENT VERIFIED BY ASPIRATION OF GASTRIC CONTENT, AND BY 2 NURSES. OUTPUT OF 1600ML.
--- NOTE | 2025-05-17 11:15 | PN ---
[facility] PROGRESS NOTE Date of Visit: May 17, 2025 Time of Visit: 11:12 Events / Notes: 69-year-old male patient with past medical history for iron-deficiency anemia, rectal cancer who had undergone an Low anterior resection with diverting ileostomy on January of 2025. He underwent an ileostomy closure with small-bowel resection. Patient's vital signs have been stable. WBC today of 8.4, hemoglobin 10.6, platelets. Chemistry significant for glucose of 143. Patient's VSS. Patient has tolerated full liquid diet without any n/v. Patient's BBS clear. Abdomen is soft and not distended with active BS. Stoma site incision with dry stain. Patient has voided without difficulties. Poc discussed and encouraged ambulation and I/s exercises. Patient verbalized understanding and agreement. . 05/15/25: Patient's VSS. He is having constant hiccups. He has been able to take in small amounts of fluids. Reports having one episode of emesis after taking vitamin. BBS are clear. Abdomen is soft but mildly distended. Stoma site i ncision with dry dressing. Active bs are present. He is voiding well. Has ambulated and reports passing small amount of flatus. 05/16/25: VSS. Patient reports he continues with hiccups. He states she has had several BMs but continues to have nausea. No emesis reported. Informed of possible need to place Ngtube if vomiting begins. 05/17/25: VSS. WBC 7.4, HGB 11.0, HCT 32.1, PLT 149. Chemistry significant for BUN 21, total bilirubin 1.1. AST, ALT, and alk phos are normal. Patient has had several bouts of emesis last night and this morning. Ngutbe placed and 2500 ml of bilious output noted. Patient reports feeling better once ngtube was placed. He continues to pass flatus and has had bms. Will keep npo but may have ice chips. Encouraged ambulation. He agreed. ] Review of Systems: CONSTITUTIONAL: No malaise or change in sensation of wellbeing. ENMT: No rhinorrhea, otorrhea, sinus pain, ear ache. CARDIOVASCULAR: No angina, palpitations, orthopnea or paroxysmal dyspnea. RESPIRATORY: No SOB. GASTROINTESTINAL: No abdominal pain, nausea, vomiting, diarrhea, hematemesis, melena or change in the patient's habitual bowel movements consistency/number. GENITOURINARY: No dysuria, hematuria or change in bladder continence. MUSCULOSKELETAL: No new muscle pain or decrease in muscular strength. No new joint swelling, redness or tenderness. SKIN: No new rash. Physical Exam: GEN: Awake, alert, oriented in person, time and place, and in no acute distress. HEENT: No rhinorrhea. Oral pharyngeal mucosa is pink, moist and within normal limits. CHEST: Inspection, palpation of the chest were unremarkable. Lung auscultation revealed normal breath sounds bilaterally. CARDIAC: Heart sounds are regular. ABD: Soft, non-tender and not distended. No peritoneal signs on palpation. No organomegaly. Normal bowel sounds. Stoma site incision dry and intact.Ng tube to LIS EXT: No cyanosis or clubbing. No edema. SKIN: Intact. No rashes. JOINTS: No evidence of synovitis or acute arthritis. NEURO: Alert and oriented to name, place and person. No focal motor deficits. Normal speech.Strength is normal. Vital Signs (last 8hr) Date Time Temp Pulse Resp B/P (MAP) Pulse Ox O2 Delivery O2 Flow Rate FiO2 05/17/25 08:00 98.1 74 18 138/73 99 Room Air 21 05/17/25 07:46 18 N/A Room Air 21 Laboratory: [ ] Laboratory: Test 05/17/25 04:47 Range/Units White Blood Count 7.4 4.8-10.8 K/uL Red Blood Count 3.57 L 4.50-6.20 MIL/uL Hemoglobin 11.0 L 14.0-18.0 g/dL Hematocrit 32.1 L 42-54 % Mean Corpuscular Volume 89.9 79-99 fL Mean Corpuscular Hemoglobin 30.8 27.0-33.0 pg Mean Corpuscular Hemoglobin Concent 34.3 32.0-36.0 g/dL Red Cell Distribution Width 13.0 11.0-15.5 % Platelet Count 149 130-400 K/uL Mean Platelet Volume 9.9 7.5-10.5 fL Immature Granulocyte % (Auto) 0.4 0-1 % Neutrophils (%) (Auto) 82.0 H 40.0-77.0 % Lymphocytes (%) (Auto) 9.7 L 21.0-51.0 % Monocytes (%) (Auto) 7.8 3.0-13.0 % Eosinophils (%) (Auto) 0.1 0.0-8.0 % Basophils (%) (Auto) 0.0 0.0-5.0 % Neutrophils # (Auto) 6.1 1.8-7.7 K/uL Lymphocytes # (Auto) 0.7 L 1.0-4.8 K/uL Monocytes # (Auto) 0.6 0.1-1.0 K/uL Eosinophils # (Auto) 0.01 0.00-0.70 K/uL Basophils # (Auto) 0.00 0.00-0.20 K/uL Absolute Immature Granulocyte (auto 0.03 0-1 K/uL Nucleated Red Blood Cells 0.0 0.0-0.19 % Sodium Level 133 L 136-145 mmol/L Potassium Level 3.6 3.5-5.1 mmol/L Chloride Level 96 L 101-111 mmol/L Carbon Dioxide Level 29 21-32 mmol/L Blood Urea Nitrogen 21 H 7-18 mg/dL Creatinine 0.6 0.5-1.3 mg/dL Glomerular Filtration Rate Calc 103 >90 mL/min Random Glucose 123 H 70-105 mg/dL Total Calcium 8.6 8.5-10.1 mg/dL Magnesium Level 1.80 1.80-2.40 mg/dL Total Bilirubin 1.1 #H 0.2-1.0 mg/dL Aspartate Amino Transf (AST/SGOT) 26 10-37 U/L Alanine Aminotransferase (ALT/SGPT) 38 12-78 U/L Alkaline Phosphatase 67 50-136 U/L Total Protein 7.0 6.0-8.3 g/dL Albumin 3.3 L 3.5-5.0 g/dL Current Medications Medications (Trade) Dose Ordered Sig/Alla Route PRN Reason Start Time Stop Time Status Last Admin Dose Admin Acetaminophen (TYLenol 325MG TAB) 650 mg Q4H PRN PO TEMPERATURE GREATER THAN 101 05/13/25 09:30 06/12/25 09:29 Acetaminophen/ Hydrocodone Bitart (NORco 5/325MG) 1 tab Q4H PRN PO MODERATE PAIN (4-6) 05/13/25 09:30 05/13/25 09:31 DC Albuterol (DUOneb) 1 udvial Q6H PRN IH sob OR WHEEZING 05/13/25 10:30 06/12/25 10:29 Dexamethasone (DeCADron 4 mg TAB) 8 mg ONCE PO 05/14/25 17:00 05/14/25 22:00 DC 05/14/25 17:33 8 MG Enoxaparin Sodium (Lovenox) 40 mg DAILY SQ 05/14/25 09:00 06/13/25 08:59 05/17/25 08:34 40 MG Ertapenem 50 ml @ 100 mls/hr ONCALL IV 05/13/25 08:00 05/13/25 16:03 DC Famotidine (Pepcid 20mg Vial) 20 mg BID IV 05/13/25 21:00 06/12/25 20:59 05/17/25 08:32 20 MG Hydralazine HCl (APRESOLine 20MG INJ) 5 mg Q6H PRN IV ADMINISTER FOR SBP > 160 05/13/25 11:30 06/12/25 11:29 Lactated Ringer's 1,000 ml @ 75 mls/hr [id number] IV 05/16/25 06:30 06/15/25 06:29 05/17/25 04:00 75 MLS/HR Magnesium Sulfate 50 ml @ 0 mls/hr PROTOCOL IV 05/14/25 06:00 06/13/25 05:59 05/14/25 07:55 25 MLS/HR Magnesium Sulfate 50 ml @ 0 mls/hr PROTOCOL IV 05/17/25 07:30 05/17/25 07:23 DC Metoclopramide HCl (regLAN 10MG IV) 10 mg ONCE IVP 05/14/25 17:00 05/14/25 22:00 DC 05/14/25 17:33 10 MG Metoclopramide HCl (regLAN 10MG IV) 10 mg Q8H5 PRN IVP OTHER [SEE ORDER COMMENTS] 05/16/25 10:30 06/15/25 10:29 05/16/25 21:53 10 MG Morphine Sulfate (morPHINE 2MG SYG) 2 mg Q3H PRN IV MODERATE PAIN (4-6) 05/13/25 09:30 05/20/25 09:29 Morphine Sulfate (morPHINE 4MG SYG) 4 mg Q3H PRN IV SEVERE PAIN (7-10) 05/13/25 09:30 05/20/25 09:29 05/13/25 13:17 4 MG Multivitamins Therapeutic (Multivitamin Tablet) 1 tab DAILY PO 05/14/25 09:00 06/13/25 08:59 05/15/25 09:08 1 TAB Ondansetron HCl (zoFRAN 4MG INJ) 4 mg Q4H PRN IVP NAUSEA 05/13/25 09:30 06/12/25 09:29 05/15/25 15:18 4 MG Potassium Chloride/Dextrose/ Sod Cl 1,000 ml @ 75 mls/hr [id number] IV 05/13/25 09:30 05/16/25 10:09 DC 05/15/25 21:22 75 MLS/HR Simethicone (Mylicon) 40 mg TID PRN PO GI GAS 05/13/25 18:30 06/12/25 18:29 05/15/25 15:18 40 MG Sodium Chloride (Sodium Chloride) 2,000 mg ONCE PO 05/16/25 09:00 05/16/25 19:00 DC 05/16/25 11:05 2,000 MG Diagnostics / Radiology: [COPY/PASTE HERE IF NO REPORTS PLEASE DELETE SECTION] Assessment: [ Ileostomy status History of rectal cancer Ileus] Plan: NPO except ice chips Encourage ambulation Encourage IS exercises Pain medicines as needed Antiemetics p.r.n Repeat KUB in am NG tube to LIS. May clamp for 30 min QID and have patient ambulate Plan for disposition in the next 24-48 hours. Please call with questions concerns, and change in clinical status Appreciate hospitalist's assistance in our patient care.] BIMAL LINDSEY DIRECTOR WORK May 17, 2025 11:15
--- NOTE | 2025-05-17 15:58 | HMCIMG ---
EXAM: CR Abdomen, 1 View. CLINICAL HISTORY: evaluate for ileus COMPARISON: Radiograph dated May 16, 2025 FINDINGS: Enteric tube terminates within the stomach. BOWEL: Small bowel loops are normal in caliber by size criteria on today's examination, measuring up to 2.7 cm. PERITONEUM/SOFT TISSUES: No free air evident. No pathologic appearing calcification. BONES: No aggressive appearing osseous lesion seen. IMPRESSION: 1. Enteric tube terminates within the stomach. Bowel loops are normal in caliber. /[place]
[2025-05-18] VITALS (7 sets, daily range): BP systolic 121–136; BP diastolic 50–75; PULSE 67–86; RESP 17–20; TEMP 97.4–98.8; O2SAT 96–97
[2025-05-18 05:46] LABS: IMMATURE GRANULOCYTE ABSOLUTE 0.03 K/uL (0-1); NUCLEATED RED BLOOD CELLS 0.0 % (0.0-0.19); PLATELET COUNT (AUTO) 145 K/uL (130-400); RED BLOOD CELL COUNT(AUTO) 3.24 MIL/uL (4.50-6.20); RED CELL DISTRIBUTION WIDTH 12.9 % (11.0-15.5); WHITE BLOOD COUNT (AUTO) 6.2 K/uL (4.8-10.8)
[2025-05-18 06:07] LABS: ASPARTATE AMINOTRANSFERASE 18.0 U/L (10-37); CREATININE 0.7 mg/dL (0.5-1.3); GLOMERULAR FILTR. RATE CALC 99.0 mL/min (>90); GLUCOSE,RANDOM 96.0 mg/dL (70-105); SODIUM SERUM 135.0 mmol/L (136-145); TOTAL PROTEIN, SERUM 6.4 g/dL (6.0-8.3); UREA NITROGEN, BLOOD 19.0 mg/dL (7-18)
[2025-05-18 07:34] LABS: ABG BASE EXCESS 3.4 mmol/L (-2.0-3.0); ABG HCO3 26.9 mmol/L (21.0-28.0); ABG OXYGEN SATURATION 96.6 % (94.0-98.0); ABG PCO2 37 mmHg (35-48); ABG PH 7.476 (7.350-7.450); DEVICE COMMENT RR, MARY,RN; PO2, ARTERIAL BG 80.4 mmHg (83.0-108.0); TEMPERATURE, CELSIUS BG 37.0 CELSIUS (35.5-37.0); VENT MODE, BG RA (ROOM AIR)
--- NOTE | 2025-05-18 13:23 | PN ---
[facility] PROGRESS NOTE Date of Service: May 18, 2025 Time of Service: 13:14 Attending Antonio SUBJECTIVE: [ 05/13 This is a 69-year-old male with prior history of malignant neoplasm of the sigmoid colon. Has prior history of colostomy in 08/2024 and low anterior resection with diverting ileostomy in 02/17/2025. Patient underwent closure of ileostomy today with small bowel resection. Memo tolbert was seen in PACU postprocedure. He appears very sleepy post anesthesia, he is able to tell me he is not in significant pain. Denies any chest pain, shortness of breath. No significant underlying medical history noted otherwise. We will continue to monitor this patient closely postoperatively. 05/14 patient was seen by nurse practitioner and physician during rounding in room 301. Patient is day one s/p ileostomy closure with small-bowel resection with Dr. Condon. WBC 8.4. H&H stable. Patient denies any shortness of breath, chest pain, nausea, vomiting or any other discomfort. Surgical site present with no signs of infection. We will continue to monitor patient in the meantime. A.m. labs. Disposition as per primary. 05/15 patient was seen by nurse practitioner and physician during rounding in room 301. Patient is on GI soft diet and that is tolerating well. Patient michael es any shortness of breath, chest pain, nausea, vomiting or any other discomfort other than pain to the surgical site. Leal catheter was already discontinued on 05/14/2025. We will continue to monitor patient in the meantime. Disposition per primary. 05/16 patient was seen by nurse practitioner and physician during rounding in room 301. X-ray of the abdomen was performed and showed autonomic ileus with distended loops of small bowel. Gastrografin of small bowel was recommended. Nurse practitioner notified GI on above-stated results. They will follow up. Patient at this moment on GI soft diet and tolerating well. We will continue to monitor patient in the meantime. A.m. labs 05/17 patient was seen by nurse practitioner and physician during rounding in room 301. Patient is s/p KUB which showed adenomatous ileus. retail banking managermaintenance technician 3rd shift reach out to the primary to notify regarding the results and as per primary NPO and insert NG tube. Patient also was vomiting throughout the night. Patient also will receive 20 mEq of IV potassium and 2 g of magnesium. We will continue to monitor patient in the meantime. A.m. labs. Disposition as per primary 05/18 Pt was seen by ANESTHETIC ASSISTANT and Physician. Pt remains NPO as per GI recommendations. NG Tube had 2300 cc output day shift yesterday, night had 500cc and so far day shift today already 600cc. XR Abdomen performed, pending reading. We will continue to monitor pt in a meantime. AM labs. Discharge as per Primary dr Condon] REVIEW OF SYSTEMS: CONSTITUTIONAL: Denies fevers, chills, or night sweats. No unintentional weight loss reported. NEUROLOGICAL: Denies headache, amaurosis fugax, motor weakness, sensory deficit, vertigo/spinning sensation, gait abnormalities, or tremors. ENT: No hearing loss, otalgia, otorrhea, rhinitis, rhinorrhea, hoarseness, or sore throat. CARDIOVASCULAR: Denies any exertional angina, dyspnea on exertion, orthopnea, paroxysmal nocturnal dyspnea, palpitations, life-threatening arrhythmias, claudication. PULMONARY: Denies any shortness of breath, cough, phlegm/sputum, hemoptysis, pleuritic chest pain. SLEEP: Denies morning headaches, daytime somnolence or napping. Denies difficulty falling asleep, staying asleep, waking from sleep. Denies knowledge of snoring. GASTROINTESTINAL: Denies any type of dysphagia to either liquids or solids. Denies pyrosis, early satiety, abdominal pain, diarrhea, constipation, or changes in stool consistency or caliber. Denies coffee-ground emesis, hematem esis, hematochezia, or melanotic stools. Complains of pain to the surgical site. Complains of nausea and vomiting. ANESTHETIC ASSISTANT Tube in place GENITOURINARY: Denies frequency, urgency, nocturia, hematuria or incontinence (Storage/Irritative symptoms.) Low urinary stream, straining to void, urinary intermittency or hesitancy, splitting of the voiding stream, terminal dribbling. ENDOCRINOLOGIC: Denies polyuria, polydipsia, polyphagia or heat/cold i ntolerances. HEMATOLOGIC: Denies thrombophilia/previous clots, or coagulopathy/bleeding disorders. ONCOLOGIC: Denies personal history of malignancy. DERMATOLOGIC: Denies rashes or pruritus. PSYCHIATRIC: Denies any suicidal or homicidal ideation. Denies hallucinations. PHYSICAL EXAM GENERAL APPEARANCE: The patient is awake, alert, and oriented, in no acute cardiopulmonary distress. NEUROLOGICAL: Cranial nerves II-XII grossly intact. Motor is 5/5 in bilateral upper and lower extremities proximal to distal. No sensory deficits. HEENT: Face is symmetric. Pupils are equal and reactive. Extraocular movements are intact. NECK: Supple. No JVD. No thyromegaly. No submental, submandibular, pre- /postauricular, occipital or supraclavicular lymphadenopathy. CHEST: Normal chest expansion. No Telemetry. LUNGS: Absence of any rales, rhonchi or any wheezing. CARDIOVASCULAR: Regular. S1 and S2 normal. No appreciable rubs, murmurs or gallops. ABDOMEN: Soft, nontender, and nondistended. There is no rebound, voluntary guarding, or rigidity. : Deferred. No Leal. EXTREMITIES: Non-edematous and not cyanotic. No clubbing. Good capillary refill. SKIN: No skin breakdown. Vital Signs (last 8hr) Date Time Temp Pulse Resp B/P (MAP) Pulse Ox O2 Delivery O2 Flow Rate FiO2 05/18/25 12:00 98.2 86 17 136/68 98 Room Air 05/18/25 11:34 97 Room Air* 0 21 05/18/25 08:00 97.3 74 17 121/72 97 Room Air 05/18/25 07:09 69 18 N/A Room Air 21 LABS: Laboratory: Test 05/18/25 07:32 05/18/25 05:40 Range/Units Blood Gas Specimen Type Arterial Arterial Blood pH 7.476 H 7.350-7.450 Arterial Blood Partial Pressure CO2 37 35-48 mmHg Arterial Blood Partial Pressure O2 80.4 L 83.0-108.0 mmHg Arterial Blood HCO3 26.9 21.0-28.0 mmol/L Arterial Blood Oxygen Saturation 96.6 94.0-98.0 % Arterial Blood Base Excess 3.4 H -2.0-3.0 mmol/L Blood Gas Temperature 37.0 35.5-37.0 CELSIUS Blood Gas Vent Mode RA ROOM AIR FiO2 21.0 % Blood Gas Specimen Comment RR, YEIMI,KELLY White Blood Count 6.2 4.8-10.8 K/uL Red Blood Count 3.24 L 4.50-6.20 MIL/uL Hemoglobin 10.0 L 14.0-18.0 g/dL Hematocrit 29.5 L 42-54 % Mean Corpuscular Volume 91.0 79-99 fL Mean Corpuscular Hemoglobin 30.9 27.0-33.0 pg Mean Corpuscular Hemoglobin Concent 33.9 32.0-36.0 g/dL Red Cell Distribution Width 12.9 11.0-15.5 % Platelet Count 145 130-400 K/uL Mean Platelet Volume 9.8 7.5-10.5 fL Immature Granulocyte % (Auto) 0.5 0-1 % Neutrophils (%) (Auto) 84.8 H 40.0-77.0 % Lymphocytes (%) (Auto) 6.7 L 21.0-51.0 % Monocytes (%) (Auto) 7.5 3.0-13.0 % Eosinophils (%) (Auto) 0.3 0.0-8.0 % Basophils (%) (Auto) 0.2 0.0-5.0 % Neutrophils # (Auto) 5.3 1.8-7.7 K/uL Lymphocytes # (Auto) 0.4 L 1.0-4.8 K/uL Monocytes # (Auto) 0.5 0.1-1.0 K/uL Eosinophils # (Auto) 0.02 0.00-0.70 K/uL Basophils # (Auto) 0.01 0.00-0.20 K/uL Absolute Immature Granulocyte (auto 0.03 0-1 K/uL Nucleated Red Blood Cells 0.0 0.0-0.19 % Sodium Level 135 L 136-145 mmol/L Potassium Level 3.5 3.5-5.1 mmol/L Chloride Level 100 L 101-111 mmol/L Carbon Dioxide Level 29 21-32 mmol/L Blood Urea Nitrogen 19 H 7-18 mg/dL Creatinine 0.7 0.5-1.3 mg/dL Glomerular Filtration Rate Calc 99 >90 mL/min Random Glucose 96 70-105 mg/dL Total Calcium 8.7 8.5-10.1 mg/dL Magnesium Level 2.30 1.80-2.40 mg/dL Total Bilirubin 1.3 H 0.2-1.0 mg/dL Aspartate Amino Transf (AST/SGOT) 18 10-37 U/L Alanine Aminotransferase (ALT/SGPT) 27 12-78 U/L Alkaline Phosphatase 56 50-136 U/L Total Protein 6.4 6.0-8.3 g/dL Albumin 3.1 L 3.5-5.0 g/dL Current Medications Medications (Trade) Dose Ordered Sig/Alla Route PRN Reason Start Time Stop Time Status Last Admin Dose Admin Acetaminophen (TYLenol 325MG TAB) 650 mg Q4H PRN PO TEMPERATURE GREATER THAN 101 05/13/25 09:30 06/12/25 09:29 Acetaminophen/ Hydrocodone Bitart (NORco 5/325MG) 1 tab Q4H PRN PO MODERATE PAIN (4-6) 05/13/25 09:30 05/13/25 09:31 DC Albuterol (DUOneb) 1 udvial Q6H PRN IH sob OR WHEEZING 05/13/25 10:30 06/12/25 10:29 Dexamethasone (DeCADron 4 mg TAB) 8 mg ONCE PO 05/14/25 17:00 05/14/25 22:00 DC 05/14/25 17:33 8 MG Enoxaparin Sodium (Lovenox) 40 mg DAILY SQ 05/14/25 09:00 06/13/25 08:59 05/18/25 10:07 40 MG Ertapenem 50 ml @ 100 mls/hr ONCALL IV 05/13/25 08:00 05/13/25 16:03 DC Famotidine (Pepcid 20mg Vial) 20 mg BID IV 05/13/25 21:00 06/12/25 20:59 05/18/25 10:07 20 MG Hydralazine HCl (APRESOLine 20MG INJ) 5 mg Q6H PRN IV ADMINISTER FOR SBP > 160 05/13/25 11:30 06/12/25 11:29 Lactated Ringer's 1,000 ml @ 75 mls/hr [id number] IV 05/16/25 06:30 06/15/25 06:29 05/17/25 20:35 75 MLS/HR Magnesium Sulfate 50 ml @ 0 mls/hr PROTOCOL IV 05/14/25 06:00 06/13/25 05:59 05/17/25 14:33 25 MLS/HR Magnesium Sulfate 50 ml @ 0 mls/hr PROTOCOL IV 05/17/25 07:30 05/17/25 07:23 DC Metoclopramide HCl (regLAN 10MG IV) 10 mg ONCE IVP 05/14/25 17:00 05/14/25 22:00 DC 05/14/25 17:33 10 MG Metoclopramide HCl (regLAN 10MG IV) 10 mg Q8H5 PRN IVP OTHER [SEE ORDER COMMENTS] 05/16/25 10:30 06/15/25 10:29 05/16/25 21:53 10 MG Morphine Sulfate (morPHINE 2MG SYG) 2 mg Q3H PRN IV MODERATE PAIN (4-6) 05/13/25 09:30 05/18/25 12:29 DC Morphine Sulfate (morPHINE 4MG SYG) 4 mg Q3H PRN IV SEVERE PAIN (7-10) 05/13/25 09:30 05/18/25 12:29 DC 05/13/25 13:17 4 MG Multivitamins Therapeutic (Multivitamin Tablet) 1 tab DAILY PO 05/14/25 09:00 06/13/25 08:59 05/15/25 09:08 1 TAB Ondansetron HCl (zoFRAN 4MG INJ) 4 mg Q4H PRN IVP NAUSEA 05/13/25 09:30 06/12/25 09:29 05/15/25 15:18 4 MG Potassium Chloride/Dextrose/ Sod Cl 1,000 ml @ 75 mls/hr [id number] IV 05/13/25 09:30 05/16/25 10:09 DC 05/15/25 21:22 75 MLS/HR Potassium Chloride 100 ml @ 50 mls/hr PROTOCOL IV 05/18/25 06:30 06/17/25 06:29 05/18/25 10:07 50 MLS/HR Potassium Chloride 100 ml @ 50 mls/hr PROTOCOL IV 05/18/25 11:00 05/18/25 06:12 DC Simethicone (Mylicon) 40 mg TID PRN PO GI GAS 05/13/25 18:30 06/12/25 18:29 05/15/25 15:18 40 MG Sodium Chloride (Sodium Chloride) 2,000 mg ONCE PO 05/16/25 09:00 05/16/25 19:00 DC 05/16/25 11:05 2,000 MG DIAGNOSTICS / RADIOLOGY: [ ] ASSESSMENT: Status post ileostomy, 05/13/2025, by Dr. Condon Prior history of LAR with diverting ileostomy in 02/17/2025, POA Adynamic ileus Per x-ray abdomen 05/16/2025 History of colostomy in 08/2024, POA History of malignant neoplasm of sigmoid colon, POA History of anemia, POA PLAN: Continue with close monitoring in medical-surgical floor Continue with pain control and IV fluids post surgery Continue with postsurgical care by Dr. Condon X-ray abdomen showed adynamic ileus with distended loops of small bowel recommended Gastrografin of small-bowel Repeat x-ray showed adenomas ileus 05/17/25 pending new XRAY Abd 05/18/25 Home medication reconciled Continue with IS, and out of bed to chair twice daily A.m. labs Continue with GI prophylaxis with Pepcid, DVT prophylaxis with Lovenox ATTESTATION BY PHYSICIAN I have seen and examined the patient. I reviewed the documentation, medical decision making, and treatment plan as noted by the mid-level provider above. I agree with the findings and plan of care. MAXX Moreira MD KAIAWHINA May 18, 2025 13:23
--- NOTE | 2025-05-18 16:19 | PN ---
[facility] PROGRESS NOTE Date of Visit: May 18, 2025 Time of Visit: 16:14 Events / Notes: 69-year-old male patient with past medical history for iron-deficiency anemia, rectal cancer who had undergone an Low anterior resection with diverting ileostomy on January of 2025. He underwent an ileostomy closure with small-bowel resection. Patient's vital signs have been stable. WBC today of 8.4, hemoglobin 10.6, platelets. Chemistry significant for glucose of 143. Patient's VSS. Patient has tolerated full liquid diet without any n/v. Patient's BBS clear. Abdomen is soft and not distended with active BS. Stoma site incision with dry stain. Patient has voided without difficulties. Poc discussed and encouraged ambulation and I/s exercises. Patient verbalized understanding and agreement. . 05/15/25: Patient's VSS. He is having constant hiccups. He has been able to take in small amounts of fluids. Reports having one episode of emesis after taking vitamin. BBS are clear. Abdomen is soft but mildly distended. Stoma site i ncision with dry dressing. Active bs are present. He is voiding well. Has ambulated and reports passing small amount of flatus. 05/16/25: VSS. Patient reports he continues with hiccups. He states she has had several BMs but continues to have nausea. No emesis reported. Informed of possible need to place Ngtube if vomiting begins. 05/17/25: VSS. WBC 7.4, HGB 11.0, HCT 32.1, PLT 149. Chemistry significant for BUN 21, total bilirubin 1.1. AST, ALT, and alk phos are normal. Patient has had several bouts of emesis last night and this morning. Ngutbe placed and 2500 ml of bilious output noted. Patient reports feeling better once ngtube was placed. He continues to pass flatus and has had bms. Will keep npo but may have ice chips. Encouraged ambulation. He agreed. 05/18/25: VSS. Patient had total 3200 gastric billious output from NGtube in past 24 hours. HGb 10.0, platelets 145 today. WBC 6.2. Patient reports feeling better after NG tube insertion and removal of gastric content. Kub yesterday 1. Enteric tube terminates within the stomach. Bowel loops are normal in caliber. Patient tolerated clear fluids this pm.Will check for residual. ] Review of Systems: CONSTITUTIONAL: No malaise or change in sensation of wellbeing. ENMT: No rhinorrhea, otorrhea, sinus pain, ear ache. CARDIOVASCULAR: No angina, palpitations, orthopnea or paroxysmal dyspnea. RESPIRATORY: No SOB. GASTROINTESTINAL: No abdominal pain, nausea, vomiting, diarrhea, hematemesis, melena or change in the patient's habitual bowel movements consistency/number. GENITOURINARY: No dysuria, hematuria or change in bladder continence. MUSCULOSKELETAL: No new muscle pain or decrease in muscular strength. No new joint swelling, redness or tenderness. SKIN: No new rash. Physical Exam: GEN: Awake, alert, oriented in person, time and place, and in no acute distress. HEENT: No rhinorrhea. Oral pharyngeal mucosa is pink, moist and within normal limits. CHEST: Inspection, palpation of the chest were unremarkable. Lung auscultation revealed normal breath sounds bilaterally. CARDIAC: Heart sounds are regular. ABD: Soft, non-tender and not distended. No peritoneal signs on palpation. No organomegaly. Normal bowel sounds. Stoma site incision dry and intact.Ng tube clamped at this time. EXT: No cyanosis or clubbing. No edema. SKIN: Intact. No rashes. JOINTS: No evidence of synovitis or acute arthritis. NEURO: Alert and oriented to name, place and person. No focal motor deficits. Normal speech.Strength is normal. Vital Signs (last 8hr) Date Time Temp Pulse Resp B/P (MAP) Pulse Ox O2 Delivery O2 Flow Rate FiO2 05/18/25 12:00 98.2 86 17 136/68 98 Room Air 05/18/25 11:34 97 Room Air* 0 21 Laboratory: [ ] Laboratory: Test 05/18/25 07:32 05/18/25 05:40 Range/Units Blood Gas Specimen Type Arterial Arterial Blood pH 7.476 H 7.350-7.450 Arterial Blood Partial Pressure CO2 37 35-48 mmHg Arterial Blood Partial Pressure O2 80.4 L 83.0-108.0 mmHg Arterial Blood HCO3 26.9 21.0-28.0 mmol/L Arterial Blood Oxygen Saturation 96.6 94.0-98.0 % Arterial Blood Base Excess 3.4 H -2.0-3.0 mmol/L Blood Gas Temperature 37.0 35.5-37.0 CELSIUS Blood Gas Vent Mode RA ROOM AIR FiO2 21.0 % Blood Gas Specimen Comment RR, YEIMI,RN White Blood Count 6.2 4.8-10.8 K/uL Red Blood Count 3.24 L 4.50-6.20 MIL/uL Hemoglobin 10.0 L 14.0-18.0 g/dL Hematocrit 29.5 L 42-54 % Mean Corpuscular Volume 91.0 79-99 fL Mean Corpuscular Hemoglobin 30.9 27.0-33.0 pg Mean Corpuscular Hemoglobin Concent 33.9 32.0-36.0 g/dL Red Cell Distribution Width 12.9 11.0-15.5 % Platelet Count 145 130-400 K/uL Mean Platelet Volume 9.8 7.5-10.5 fL Immature Granulocyte % (Auto) 0.5 0-1 % Neutrophils (%) (Auto) 84.8 H 40.0-77.0 % Lymphocytes (%) (Auto) 6.7 L 21.0-51.0 % Monocytes (%) (Auto) 7.5 3.0-13.0 % Eosinophils (%) (Auto) 0.3 0.0-8.0 % Basophils (%) (Auto) 0.2 0.0-5.0 % Neutrophils # (Auto) 5.3 1.8-7.7 K/uL Lymphocytes # (Auto) 0.4 L 1.0-4.8 K/uL Monocytes # (Auto) 0.5 0.1-1.0 K/uL Eosinophils # (Auto) 0.02 0.00-0.70 K/uL Basophils # (Auto) 0.01 0.00-0.20 K/uL Absolute Immature Granulocyte (auto 0.03 0-1 K/uL Nucleated Red Blood Cells 0.0 0.0-0.19 % Sodium Level 135 L 136-145 mmol/L Potassium Level 3.5 3.5-5.1 mmol/L Chloride Level 100 L 101-111 mmol/L Carbon Dioxide Level 29 21-32 mmol/L Blood Urea Nitrogen 19 H 7-18 mg/dL Creatinine 0.7 0.5-1.3 mg/dL Glomerular Filtration Rate Calc 99 >90 mL/min Random Glucose 96 70-105 mg/dL Total Calcium 8.7 8.5-10.1 mg/dL Magnesium Level 2.30 1.80-2.40 mg/dL Total Bilirubin 1.3 H 0.2-1.0 mg/dL Aspartate Amino Transf (AST/SGOT) 18 10-37 U/L Alanine Aminotransferase (ALT/SGPT) 27 12-78 U/L Alkaline Phosphatase 56 50-136 U/L Total Protein 6.4 6.0-8.3 g/dL Albumin 3.1 L 3.5-5.0 g/dL Current Medications Medications (Trade) Dose Ordered Sig/Alla Route PRN Reason Start Time Stop Time Status Last Admin Dose Admin Acetaminophen (TYLenol 325MG TAB) 650 mg Q4H PRN PO TEMPERATURE GREATER THAN 101 05/13/25 09:30 06/12/25 09:29 Acetaminophen/ Hydrocodone Bitart (NORco 5/325MG) 1 tab Q4H PRN PO MODERATE PAIN (4-6) 05/13/25 09:30 05/13/25 09:31 DC Albuterol (DUOneb) 1 udvial Q6H PRN IH sob OR WHEEZING 05/13/25 10:30 06/12/25 10:29 Dexamethasone (DeCADron 4 mg TAB) 8 mg ONCE PO 05/14/25 17:00 05/14/25 22:00 DC 05/14/25 17:33 8 MG Enoxaparin Sodium (Lovenox) 40 mg DAILY SQ 05/14/25 09:00 06/13/25 08:59 05/18/25 10:07 40 MG Ertapenem 50 ml @ 100 mls/hr ONCALL IV 05/13/25 08:00 05/13/25 16:03 DC Famotidine (Pepcid 20mg Vial) 20 mg BID IV 05/13/25 21:00 06/12/25 20:59 05/18/25 10:07 20 MG Hydralazine HCl (APRESOLine 20MG INJ) 5 mg Q6H PRN IV ADMINISTER FOR SBP > 160 05/13/25 11:30 06/12/25 11:29 Lactated Ringer's 1,000 ml @ 75 mls/hr [id number] IV 05/16/25 06:30 06/15/25 06:29 05/17/25 20:35 75 MLS/HR Magnesium Sulfate 50 ml @ 0 mls/hr PROTOCOL IV 05/14/25 06:00 06/13/25 05:59 05/17/25 14:33 25 MLS/HR Magnesium Sulfate 50 ml @ 0 mls/hr PROTOCOL IV 05/17/25 07:30 05/17/25 07:23 DC Metoclopramide HCl (regLAN 10MG IV) 10 mg ONCE IVP 05/14/25 17:00 05/14/25 22:00 DC 05/14/25 17:33 10 MG Metoclopramide HCl (regLAN 10MG IV) 10 mg Q8H5 PRN IVP OTHER [SEE ORDER COMMENTS] 05/16/25 10:30 06/15/25 10:29 05/16/25 21:53 10 MG Morphine Sulfate (morPHINE 2MG SYG) 2 mg Q3H PRN IV MODERATE PAIN (4-6) 05/13/25 09:30 05/18/25 12:29 DC Morphine Sulfate (morPHINE 4MG SYG) 4 mg Q3H PRN IV SEVERE PAIN (7-10) 05/13/25 09:30 05/18/25 12:29 DC 05/13/25 13:17 4 MG Multivitamins Therapeutic (Multivitamin Tablet) 1 tab DAILY PO 05/14/25 09:00 06/13/25 08:59 05/15/25 09:08 1 TAB Ondansetron HCl (zoFRAN 4MG INJ) 4 mg Q4H PRN IVP NAUSEA 05/13/25 09:30 06/12/25 09:29 05/15/25 15:18 4 MG Potassium Chloride/Dextrose/ Sod Cl 1,000 ml @ 75 mls/hr [id number] IV 05/13/25 09:30 05/16/25 10:09 DC 05/15/25 21:22 75 MLS/HR Potassium Chloride 100 ml @ 50 mls/hr PROTOCOL IV 05/18/25 06:30 06/17/25 06:29 05/18/25 10:07 50 MLS/HR Potassium Chloride 100 ml @ 50 mls/hr PROTOCOL IV 05/18/25 11:00 05/18/25 06:12 DC Simethicone (Mylicon) 40 mg TID PRN PO GI GAS 05/13/25 18:30 06/12/25 18:29 05/15/25 15:18 40 MG Sodium Chloride (Sodium Chloride) 2,000 mg ONCE PO 05/16/25 09:00 05/16/25 19:00 DC 05/16/25 11:05 2,000 MG Diagnostics / Radiology: [COPY/PASTE HERE IF NO REPORTS PLEASE DELETE SECTION] Assessment: [ Emesis Ileostomy status History of rectal cancer Ileus] Plan: Begin clear fluids Clamp NGtube for feeding Check residual 1hr pp Encourage ambulation Encourage IS exercises Pain medicines as needed Antiemetics p.r.n Repeat KUB in am NG tube to LIS. May clamp for 30 min QID and have patient ambulate Plan for disposition in the next 24-48 hours. Please call with questions concerns, and change in clinical status Appreciate hospitalist's assistance in our patient care.] BIMAL LINDSEY NP May 18, 2025 16:19
--- NOTE | 2025-05-18 18:56 | HMCIMG ---
EXAM: CR Abdomen, 1 View. CLINICAL HISTORY: evaluate ileus/sbo COMPARISON: None provided. FINDINGS: BOWEL: The bowel gas pattern is within normal limits. PERITONEUM/SOFT TISSUES: No free air evident. No pathologic appearing calcification. BONES: No acute osseous abnormality. IMPRESSION: The bowel gas pattern is within normal limits. /[place]
[2025-05-19] VITALS (8 sets, daily range): BP systolic 111–158; BP diastolic 67–85; PULSE 72–91; RESP 16–20; TEMP 97.9–100.8; O2SAT 96
[2025-05-19 05:08] LABS: IMMATURE GRANULOCYTE ABSOLUTE 0.01 K/uL (0-1); NUCLEATED RED BLOOD CELLS 0.0 % (0.0-0.19); PLATELET COUNT (AUTO) 184 K/uL (130-400); RED BLOOD CELL COUNT(AUTO) 3.45 MIL/uL (4.50-6.20); RED CELL DISTRIBUTION WIDTH 13.2 % (11.0-15.5); WHITE BLOOD COUNT (AUTO) 3.9 K/uL (4.8-10.8)
[2025-05-19 05:22] LABS: ASPARTATE AMINOTRANSFERASE 17.0 U/L (10-37); CREATININE 0.6 mg/dL (0.5-1.3); GLOMERULAR FILTR. RATE CALC 103.0 mL/min (>90); GLUCOSE,RANDOM 78.0 mg/dL (70-105); SODIUM SERUM 136.0 mmol/L (136-145); TOTAL PROTEIN, SERUM 6.4 g/dL (6.0-8.3); UREA NITROGEN, BLOOD 19.0 mg/dL (7-18)
--- NOTE | 2025-05-19 10:57 | PN ---
[facility] PROGRESS NOTE Date of Service: May 19, 2025 Time of Service: 10:56 SUBJECTIVE: [ 05/13 This is a 69-year-old male with prior history of malignant neoplasm of the sigmoid colon. Has prior history of colostomy in 08/2024 and low anterior resection with diverting ileostomy in 02/17/2025. Patient underwent closure of ileostomy today with small bowel resection. Patient was seen in PACU postprocedure. He appears very sleepy post anesthesia, he is able to tell me he is not in significant pain. Denies any chest pain, shortness of breath. No significant underlying medical history noted otherwise. We will continue to monitor this patient closely postoperatively. 05/14 patient was seen by nurse practitioner and physician during rounding in room 301. Patient is day one s/p ileostomy closure with small-bowel resection with Dr. Condon. WBC 8.4. H&H stable. Patient denies any shortness of breath, chest pain, nausea, vomiting or any other discomfort. Surgical site present with no signs of infection. We will continue to monitor patient in the meantime. A.m. labs. Disposition as per primary. 05/15 patient was seen by nurse practitioner and physician during rounding in room 301. Patient is on GI soft diet and that is tolerating well. Patient denies any shortness of breath, chest pain, nausea, vomiting or any other discomfort other than pain to the surgical site. Leal catheter was already discontinued on 05/14/2025. We will continue to monitor patient in the meantime. Disposition per primary. 05/16 patient was seen by nurse practitioner and physician during rounding in room 301. X-ray of the abdomen was performed and showed autonomic ileus with distended loops of small bowel. Gastrografin of small bowel was recommended. Nurse practitioner notified GI on above-stated results. They will follow up. Patient at this moment on GI soft diet and tolerating well. We will continue to monitor patient in the meantime. A.m. labs 05/17 patient was seen by nurse practitioner and physician during rounding in room 301. Patient is s/p KUB which showed adenomatous ileus. floorwalkercertified coder reach out to the primary to notify regarding the results and as per primary NPO and insert NG tube. Patient also was vomiting throughout the night. Patient also will receive 20 mEq of IV potassium and 2 g of magnesium. We will continue to monitor patient in the meantime. A.m. labs. Disposition as per primary 05/18 Pt was seen by ENGINEER PROCESS and Physician. Pt remains NPO as per GI recommendations. NG Tube had 2300 cc output day shift yesterday, night had 500cc and so far day shift today already 600cc. XR Abdomen performed, pending reading. We will continue to monitor pt in a meantime. AM labs. Discharge as per Primary dr Condon] 05/19/25 patient is seen and examined. NG tube output 900. Primary nurse reports patient was started on diet NG tube was clamped residual was 400 GI was made aware. No nausea no vomiting. T-max 100.8. v abdominal x-ray was negative we will wait for GI recommendations discharge as per primary doctor supa REVIEW OF SYSTEMS: CONSTITUTIONAL: Denies fevers, chills, or night sweats. No unintentional weight loss reported. NEUROLOGICAL: Denies headache, amaurosis fugax, motor weakness, sensory deficit, vertigo/spinning sensation, gait abnormalities, or tremors. ENT: No hearing loss, otalgia, otorrhea, rhinitis, rhinorrhea, hoarseness, or sore throat. CARDIOVASCULAR: Denies any exertional angina, dyspnea on exertion, orthopnea, paroxysmal nocturnal dyspnea, palpitations, life-threatening arrhythmias, claudication. PULMONARY: Denies any shortness of breath, cough, phlegm/sputum, hemoptysis, pleuritic chest pain. SLEEP: Denies morning headaches, daytime somnolence or napping. Denies difficulty falling asleep, staying asleep, waking from sleep. Denies knowledge of snoring. GASTROINTESTINAL: Denies any type of dysphagia to either liquids or solids. Denies pyrosis, early satiety, abdominal pain, diarrhea, constipation, or changes in stool consistency or caliber. Denies coffee-ground emesis, hematemesis, hematochezia, or melanotic stools. Complains of pain to the surgical site. Complains of nausea and vomiting. ENGINEER PROCESS Tube in place GENITOURINARY: Denies frequency, urgency, nocturia, hematuria or incontinence (Storage/Irritative symptoms.) Low urinary stream, straining to void, urinary intermittency or hesitancy, splitting of the voiding stream, terminal dribbling. ENDOCRINOLOGIC: Denies polyuria, polydipsia, polyphagia or heat/cold intolerances. HEMATOLOGIC: Denies thrombophilia/previous clots, or coagulopathy/bleeding disorders. ONCOLOGIC: Denies personal history of malignancy. DERMATOLOGIC: Denies rashes or pruritus. PSYCHIATRIC: Denies any suicidal or homicidal ideation. Denies hallucinations. PHYSICAL EXAM GENERAL APPEARANCE: The patient is awake, alert, and oriented, in no acute cardiopulmonary distress. NEUROLOGICAL: Cranial nerves II-XII grossly intact. Motor is 5/5 in bilateral upper and lower extremities proximal to distal. No sensory deficits. HEENT: Face is symmetric. Pupils are equal and reactive. Extraocular movements are intact. NECK: Supple. No JVD. No thyromegaly. No submental, submandibular, pre-/postauricular, occipital or supraclavicular lymphadenopathy. CHEST: Normal chest expansion. No Telemetry. LUNGS: Absence of any rales, rhonchi or any wheezing. CARDIOVASCULAR: Regular. S1 and S2 normal. No appreciable rubs, murmurs or gallops. ABDOMEN: Soft, nontender, and nondistended. There is no rebound, voluntary guarding, or rigidity. : Deferred. No Leal. EXTREMITIES: Non-edematous and not cyanotic. No clubbing. Good capillary refill. SKIN: No skin breakdown. Vital Signs (last 8hr) Date Time Temp Pulse Resp B/P (MAP) Pulse Ox O2 Delivery O2 Flow Rate FiO2 05/19/25 09:04 100.8 05/19/25 08:41 100.8 85 18 130/67 96 Room Air 05/19/25 03:30 98.8 91 20 158/81 96 Room Air LABS: Laboratory: Test 05/19/25 04:44 05/18/25 07:32 Range/Units White Blood Count 3.9 #L 4.8-10.8 K/uL Red Blood Count 3.45 L 4.50-6.20 MIL/uL Hemoglobin 10.7 L 14.0-18.0 g/dL Hematocrit 30.6 L 42-54 % Mean Corpuscular Volume 88.7 79-99 fL Mean Corpuscular Hemoglobin 31.0 27.0-33.0 pg Mean Corpuscular Hemoglobin Concent 35.0 32.0-36.0 g/dL Red Cell Distribution Width 13.2 11.0-15.5 % Platelet Count 184 # 130-400 K/uL Mean Platelet Volume 9.7 7.5-10.5 fL Immature Granulocyte % (Auto) 0.3 0-1 % Neutrophils (%) (Auto) 86.8 H 40.0-77.0 % Lymphocytes (%) (Auto) 6.7 L 21.0-51.0 % Monocytes (%) (Auto) 5.9 3.0-13.0 % Eosinophils (%) (Auto) 0.0 0.0-8.0 % Basophils (%) (Auto) 0.3 0.0-5.0 % Neutrophils # (Auto) 3.4 1.8-7.7 K/uL Lymphocytes # (Auto) 0.3 L 1.0-4.8 K/uL Monocytes # (Auto) 0.2 0.1-1.0 K/uL Eosinophils # (Auto) 0.00 0.00-0.70 K/uL Basophils # (Auto) 0.01 0.00-0.20 K/uL Absolute Immature Granulocyte (auto 0.01 0-1 K/uL Nucleated Red Blood Cells 0.0 0.0-0.19 % Sodium Level 136 136-145 mmol/L Potassium Level 3.2 L 3.5-5.1 mmol/L Chloride Level 97 L 101-111 mmol/L Carbon Dioxide Level 29 21-32 mmol/L Blood Urea Nitrogen 19 H 7-18 mg/dL Creatinine 0.6 0.5-1.3 mg/dL Glomerular Filtration Rate Calc 103 >90 mL/min Random Glucose 78 70-105 mg/dL Total Calcium 8.4 L 8.5-10.1 mg/dL Magnesium Level 1.90 1.80-2.40 mg/dL Total Bilirubin 1.1 H 0.2-1.0 mg/dL Aspartate Amino Transf (AST/SGOT) 17 10-37 U/L Alanine Aminotransferase (ALT/SGPT) 25 12-78 U/L Alkaline Phosphatase 58 50-136 U/L Total Protein 6.4 6.0-8.3 g/dL Albumin 2.9 L 3.5-5.0 g/dL Blood Gas Specimen Type Arterial Arterial Blood pH 7.476 H 7.350-7.450 Arterial Blood Partial Pressure CO2 37 35-48 mmHg Arterial Blood Partial Pressure O2 80.4 L 83.0-108.0 mmHg Arterial Blood HCO3 26.9 21.0-28.0 mmol/L Arterial Blood Oxygen Saturation 96.6 94.0-98.0 % Arterial Blood Base Excess 3.4 H -2.0-3.0 mmol/L Blood Gas Temperature 37.0 35.5-37.0 CELSIUS Blood Gas Vent Mode RA ROOM AIR FiO2 21.0 % Blood Gas Specimen Comment RR, YEIMI,RN Current Medications Medications (Trade) Dose Ordered Sig/Alla Route PRN Reason Start Time Stop Time Status Last Admin Dose Admin Acetaminophen (TYLenol 325MG TAB) 650 mg Q4H PRN PO TEMPERATURE GREATER THAN 101 05/13/25 09:30 06/12/25 09:29 05/19/25 09:04 650 MG Acetaminophen/ Hydrocodone Bitart (NORco 5/325MG) 1 tab Q4H PRN PO MODERATE PAIN (4-6) 05/13/25 09:30 05/13/25 09:31 DC Albuterol (DUOneb) 1 udvial Q6H PRN IH sob OR WHEEZING 05/13/25 10:30 06/12/25 10:29 Dexamethasone (DeCADron 4 mg TAB) 8 mg ONCE PO 05/14/25 17:00 05/14/25 22:00 DC 05/14/25 17:33 8 MG Enoxaparin Sodium (Lovenox) 40 mg DAILY SQ 05/14/25 09:00 06/13/25 08:59 05/19/25 09:04 40 MG Ertapenem 50 ml @ 100 mls/hr ONCALL IV 05/13/25 08:00 05/13/25 16:03 DC Famotidine (Pepcid 20mg Vial) 20 mg BID IV 05/13/25 21:00 06/12/25 20:59 05/19/25 09:04 20 MG Hydralazine HCl (APRESOLine 20MG INJ) 5 mg Q6H PRN IV ADMINISTER FOR SBP > 160 05/13/25 11:30 06/12/25 11:29 Lactated Ringer's 1,000 ml @ 75 mls/hr [id number] IV 05/16/25 06:30 06/15/25 06:29 05/18/25 20:48 75 MLS/HR Magnesium Sulfate 50 ml @ 0 mls/hr PROTOCOL IV 05/14/25 06:00 06/13/25 05:59 05/17/25 14:33 25 MLS/HR Magnesium Sulfate 50 ml @ 0 mls/hr PROTOCOL IV 05/17/25 07:30 05/17/25 07:23 DC Metoclopramide HCl (regLAN 10MG IV) 10 mg ONCE IVP 05/14/25 17:00 05/14/25 22:00 DC 05/14/25 17:33 10 MG Metoclopramide HCl (regLAN 10MG IV) 10 mg Q8H5 PRN IVP OTHER [SEE ORDER COMMENTS] 05/16/25 10:30 06/15/25 10:29 05/19/25 06:45 10 MG Morphine Sulfate (morPHINE 2MG SYG) 2 mg Q3H PRN IV MODERATE PAIN (4-6) 05/13/25 09:30 05/18/25 12:29 DC Morphine Sulfate (morPHINE 4MG SYG) 4 mg Q3H PRN IV SEVERE PAIN (7-10) 05/13/25 09:30 05/18/25 12:29 DC 05/13/25 13:17 4 MG Multivitamins Therapeutic (Multivitamin Tablet) 1 tab DAILY PO 05/14/25 09:00 06/13/25 08:59 05/19/25 09:04 1 TAB Ondansetron HCl (zoFRAN 4MG INJ) 4 mg Q4H PRN IVP NAUSEA 05/13/25 09:30 06/12/25 09:29 05/15/25 15:18 4 MG Potassium Chloride/Dextrose/ Sod Cl 1,000 ml @ 75 mls/hr [id number] IV 05/13/25 09:30 05/16/25 10:09 DC 05/15/25 21:22 75 MLS/HR Potassium Chloride 100 ml @ 50 mls/hr AD PRN IV POTASSIUM PROTOCOL 05/19/25 06:30 06/18/25 06:29 Potassium Chloride 100 ml @ 50 mls/hr PROTOCOL IV 05/18/25 06:30 05/19/25 06:05 DC 05/19/25 05:59 50 MLS/HR Potassium Chloride 100 ml @ 50 mls/hr PROTOCOL IV 05/18/25 11:00 05/18/25 06:12 DC Simethicone (Mylicon) 40 mg TID PRN PO GI GAS 05/13/25 18:30 06/12/25 18:29 05/19/25 09:03 40 MG Sodium Chloride (Sodium Chloride) 2,000 mg ONCE PO 05/16/25 09:00 05/16/25 19:00 DC 05/16/25 11:05 2,000 MG DIAGNOSTICS / RADIOLOGY: [ ] ASSESSMENT: Status post ileostomy, 05/13/2025, by Dr. Condon Prior history of LAR with diverting ileostomy in 02/17/2025, POA Adynamic ileus Per x-ray abdomen 05/16/2025 History of colostomy in 08/2024, POA History of malignant neoplasm of sigmoid colon, POA History of anemia, POA PLAN: Continue with close monitoring in medical-surgical floor Continue with pain control and IV fluids post surgery Continue with postsurgical care by Dr. Condon We will continue post residual checking after meals. XRAY Abd 05/18/25 noted Home medication reconciled Continue with IS, and out of bed to chair twice daily A.m. labs Continue with GI prophylaxis with Pepcid, DVT prophylaxis with Lovenox ATTESTATION BY PHYSICIAN I have seen and examined the patient. I reviewed the documentation, medical decision making, and treatment plan as noted by the mid-level provider above. I agree with the findings and plan of care. WALTER WELLS MD, [facility]IZABETH NP May 19, 2025 10:57
--- NOTE | 2025-05-19 11:37 | PN ---
[facility] PROGRESS NOTE Date of Visit: May 19, 2025 Time of Visit: 11:34 Events / Notes: 69-year-old male patient with past medical history for iron-deficiency anemia, rectal cancer who had undergone an Low anterior resection with diverting ileostomy on January of 2025. He underwent an ileostomy closure with small-bowel resection. Patient's vital signs have been stable. WBC today of 8.4, hemoglobin 10.6, platelets. Chemistry significant for glucose of 143. Patient's VSS. Patient has tolerated full liquid diet without any n/v. Patient's BBS clear. Abdomen is soft and not distended with active BS. Stoma site incision with dry stain. Patient has voided without difficulties. Poc discussed and encouraged ambulation and I/s exercises. Patient verbalized understanding and agreement. . 05/15/25: Patient's VSS. He is having constant hiccups. He has been able to take in small amounts of fluids. Reports having one episode of emesis after taking vitamin. BBS are clear. Abdomen is soft but mildly distended. Stoma site i ncision with dry dressing. Active bs are present. He is voiding well. Has ambulated and reports passing small amount of flatus. 05/16/25: VSS. Patient reports he continues with hiccups. He states she has had several BMs but continues to have nausea. No emesis reported. Informed of possible need to place Ngtube if vomiting begins. 05/17/25: VSS. WBC 7.4, HGB 11.0, HCT 32.1, PLT 149. Chemistry significant for BUN 21, total bilirubin 1.1. AST, ALT, and alk phos are normal. Patient has had several bouts of emesis last night and this morning. Ngutbe placed and 2500 ml of bilious output noted. Patient reports feeling better once ngtube was placed. He continues to pass flatus and has had bms. Will keep npo but may have ice chips. Encouraged ambulation. He agreed. 05/18/25: VSS. Patient had total 3200 gastric billious output from NGtube in past 24 hours. HGb 10.0, platelets 145 today. WBC 6.2. Patient reports feeling better after NG tube insertion and removal of gastric content. Kub yesterday 1. Enteric tube terminates within the stomach. Bowel loops are normal in caliber. Patient tolerated clear fluids this pm.Will check for residual 05/19/25: Patient had 300 ml last night and 400ml residual this morning after having clear fluids. Temp 100.8 this am. BP, pulse normal. WBC 3.9, HGB 10.7, Plt 184. Potassium 3.2, bun 19, total bili 1.1. AST and ALT normal. Plan for upper GI with small bowel follow through today. Patient had 600 mL of bilious output from NG tube. .] Review of Systems: CONSTITUTIONAL: No malaise or change in sensation of wellbeing. ENMT: No rhinorrhea, otorrhea, sinus pain, ear ache. CARDIOVASCULAR: No angina, palpitations, orthopnea or paroxysmal dyspnea. RESPIRATORY: No SOB. GASTROINTESTINAL: No abdominal pain, nausea, vomiting, diarrhea, hematemesis, melena or change in the patient's habitual bowel movements consistency/number. GENITOURINARY: No dysuria, hematuria or change in bladder continence. MUSCULOSKELETAL: No new muscle pain or decrease in muscular strength. No new joint swelling, redness or tenderness. SKIN: No new rash. Physical Exam: GEN: Awake, alert, oriented in person, time and place, and in no acute distress. HEENT: No rhinorrhea. Oral pharyngeal mucosa is pink, moist and within normal limits. CHEST: Inspection, palpation of the chest were unremarkable. Lung auscultation revealed normal breath sounds bilaterally. CARDIAC: Heart sounds are regular. ABD: Soft, non-tender and not distended. No peritoneal signs on palpation. No organomegaly. Normal bowel sounds. Stoma site incision dry and intact.Ng tube clamped at this time. EXT: No cyanosis or clubbing. No edema. SKIN: Intact. No rashes. JOINTS: No evidence of synovitis or acute arthritis. NEURO: Alert and oriented to name, place and person. No focal motor deficits. Normal speech.Strength is normal. Vital Signs (last 8hr) Date Time Temp Pulse Resp B/P (MAP) Pulse Ox O2 Delivery O2 Flow Rate FiO2 05/19/25 09:04 100.8 05/19/25 08:41 100.8 85 18 130/67 96 Room Air Laboratory: [ ] Laboratory: Test 05/19/25 04:44 05/18/25 07:32 Range/Units White Blood Count 3.9 #L 4.8-10.8 K/uL Red Blood Count 3.45 L 4.50-6.20 MIL/uL Hemoglobin 10.7 L 14.0-18.0 g/dL Hematocrit 30.6 L 42-54 % Mean Corpuscular Volume 88.7 79-99 fL Mean Corpuscular Hemoglobin 31.0 27.0-33.0 pg Mean Corpuscular Hemoglobin Concent 35.0 32.0-36.0 g/dL Red Cell Distribution Width 13.2 11.0-15.5 % Platelet Count 184 # 130-400 K/uL Mean Platelet Volume 9.7 7.5-10.5 fL Immature Granulocyte % (Auto) 0.3 0-1 % Neutrophils (%) (Auto) 86.8 H 40.0-77.0 % Lymphocytes (%) (Auto) 6.7 L 21.0-51.0 % Monocytes (%) (Auto) 5.9 3.0-13.0 % Eosinophils (%) (Auto) 0.0 0.0-8.0 % Basophils (%) (Auto) 0.3 0.0-5.0 % Neutrophils # (Auto) 3.4 1.8-7.7 K/uL Lymphocytes # (Auto) 0.3 L 1.0-4.8 K/uL Monocytes # (Auto) 0.2 0.1-1.0 K/uL Eosinophils # (Auto) 0.00 0.00-0.70 K/uL Basophils # (Auto) 0.01 0.00-0.20 K/uL Absolute Immature Granulocyte (auto 0.01 0-1 K/uL Nucleated Red Blood Cells 0.0 0.0-0.19 % Sodium Level 136 136-145 mmol/L Potassium Level 3.2 L 3.5-5.1 mmol/L Chloride Level 97 L 101-111 mmol/L Carbon Dioxide Level 29 21-32 mmol/L Blood Urea Nitrogen 19 H 7-18 mg/dL Creatinine 0.6 0.5-1.3 mg/dL Glomerular Filtration Rate Calc 103 >90 mL/min Random Glucose 78 70-105 mg/dL Total Calcium 8.4 L 8.5-10.1 mg/dL Magnesium Level 1.90 1.80-2.40 mg/dL Total Bilirubin 1.1 H 0.2-1.0 mg/dL Aspartate Amino Transf (AST/SGOT) 17 10-37 U/L Alanine Aminotransferase (ALT/SGPT) 25 12-78 U/L Alkaline Phosphatase 58 50-136 U/L Total Protein 6.4 6.0-8.3 g/dL Albumin 2.9 L 3.5-5.0 g/dL Blood Gas Specimen Type Arterial Arterial Blood pH 7.476 H 7.350-7.450 Arterial Blood Partial Pressure CO2 37 35-48 mmHg Arterial Blood Partial Pressure O2 80.4 L 83.0-108.0 mmHg Arterial Blood HCO3 26.9 21.0-28.0 mmol/L Arterial Blood Oxygen Saturation 96.6 94.0-98.0 % Arterial Blood Base Excess 3.4 H -2.0-3.0 mmol/L Blood Gas Temperature 37.0 35.5-37.0 CELSIUS Blood Gas Vent Mode RA ROOM AIR FiO2 21.0 % Blood Gas Specimen Comment RR, YEIMI,RN Current Medications Medications (Trade) Dose Ordered Sig/Alla Route PRN Reason Start Time Stop Time Status Last Admin Dose Admin Acetaminophen (TYLenol 325MG TAB) 650 mg Q4H PRN PO TEMPERATURE GREATER THAN 101 05/13/25 09:30 06/12/25 09:29 05/19/25 09:04 650 MG Acetaminophen/ Hydrocodone Bitart (NORco 5/325MG) 1 tab Q4H PRN PO MODERATE PAIN (4-6) 05/13/25 09:30 05/13/25 09:31 DC Albuterol (DUOneb) 1 udvial Q6H PRN IH sob OR WHEEZING 05/13/25 10:30 06/12/25 10:29 Dexamethasone (DeCADron 4 mg TAB) 8 mg ONCE PO 05/14/25 17:00 05/14/25 22:00 DC 05/14/25 17:33 8 MG Enoxaparin Sodium (Lovenox) 40 mg DAILY SQ 05/14/25 09:00 06/13/25 08:59 05/19/25 09:04 40 MG Ertapenem 50 ml @ 100 mls/hr ONCALL IV 05/13/25 08:00 05/13/25 16:03 DC Famotidine (Pepcid 20mg Vial) 20 mg BID IV 05/13/25 21:00 06/12/25 20:59 05/19/25 09:04 20 MG Hydralazine HCl (APRESOLine 20MG INJ) 5 mg Q6H PRN IV ADMINISTER FOR SBP > 160 05/13/25 11:30 06/12/25 11:29 Lactated Ringer's 1,000 ml @ 75 mls/hr [id number] IV 05/16/25 06:30 06/15/25 06:29 05/18/25 20:48 75 MLS/HR Magnesium Sulfate 50 ml @ 0 mls/hr PROTOCOL IV 05/14/25 06:00 06/13/25 05:59 05/17/25 14:33 25 MLS/HR Magnesium Sulfate 50 ml @ 0 mls/hr PROTOCOL IV 05/17/25 07:30 05/17/25 07:23 DC Metoclopramide HCl (regLAN 10MG IV) 10 mg ONCE IVP 05/14/25 17:00 05/14/25 22:00 DC 05/14/25 17:33 10 MG Metoclopramide HCl (regLAN 10MG IV) 10 mg Q8H5 PRN IVP OTHER [SEE ORDER COMMENTS] 05/16/25 10:30 06/15/25 10:29 05/19/25 06:45 10 MG Morphine Sulfate (morPHINE 2MG SYG) 2 mg Q3H PRN IV MODERATE PAIN (4-6) 05/13/25 09:30 05/18/25 12:29 DC Morphine Sulfate (morPHINE 4MG SYG) 4 mg Q3H PRN IV SEVERE PAIN (7-10) 05/13/25 09:30 05/18/25 12:29 DC 05/13/25 13:17 4 MG Multivitamins Therapeutic (Multivitamin Tablet) 1 tab DAILY PO 05/14/25 09:00 06/13/25 08:59 05/19/25 09:04 1 TAB Ondansetron HCl (zoFRAN 4MG INJ) 4 mg Q4H PRN IVP NAUSEA 05/13/25 09:30 06/12/25 09:29 05/15/25 15:18 4 MG Potassium Chloride/Dextrose/ Sod Cl 1,000 ml @ 75 mls/hr [id number] IV 05/13/25 09:30 05/16/25 10:09 DC 05/15/25 21:22 75 MLS/HR Potassium Chloride 100 ml @ 50 mls/hr AD PRN IV POTASSIUM PROTOCOL 05/19/25 06:30 06/18/25 06:29 Potassium Chloride 100 ml @ 50 mls/hr PROTOCOL IV 05/18/25 06:30 05/19/25 06:05 DC 05/19/25 05:59 50 MLS/HR Potassium Chloride 100 ml @ 50 mls/hr PROTOCOL IV 05/18/25 11:00 05/18/25 06:12 DC Simethicone (Mylicon) 40 mg TID PRN PO GI GAS 05/13/25 18:30 06/12/25 18:29 05/19/25 09:03 40 MG Sodium Chloride (Sodium Chloride) 2,000 mg ONCE PO 05/16/25 09:00 05/16/25 19:00 DC 05/16/25 11:05 2,000 MG Diagnostics / Radiology: [COPY/PASTE HERE IF NO REPORTS PLEASE DELETE SECTION] Assessment: [ Emesis Ileostomy status History of rectal cancer Ileus] Plan: Hold fluids Keep NPO Plan for UGI with SB follow through Encourage ambulation Encourage IS exercises Pain medicines as needed Antiemetics p.r.n NG tube to LIS. May clamp for 30 min QID and have patient ambulate Plan for disposition in the next 24-48 hours. Please call with questions concerns, and change in clinical status Appreciate hospitalist's assistance in our patient care.] BIMAL LINDSEY BALLROOM DANCER May 19, 2025 11:37
[2025-05-19] MEDS ORDERED: DIATR MEGLU/DIATRIZOATE SODIUM 30 ML BOTTLE ONE (12:56)
--- NOTE | 2025-05-19 22:44 | HMCIMG ---
EXAM: CR Abdomen, small bowel series. CLINICAL HISTORY: Pain. COMPARISON: Radiograph of the abdomen dated 05/18/2025. FINDINGS: The gastric tube tip terminates within the stomach. The positive GI contrast injected through the gastric tube opacifies the stomach, small, and large bowel loops up to the rectum. Generalized dilatation of the small and large bowel loops; the dilated small bowel loops measure up to 4.8 cm in diameter. The features are compatible with partial distal bowel obstruction versus ileus. No free air is evident. No abnormal calcification. No aggressive appearing osseous lesion. IMPRESSION: Partial distal bowel obstruction versus ileus. Interval worsening in the bowel dilatation compared to the previous radiograph. /Canvas
[2025-05-20] VITALS (8 sets, daily range): BP systolic 112–129; BP diastolic 66–80; PULSE 78–95; RESP 16–20; TEMP 97.3–98.5; O2SAT 98
[2025-05-20 05:21] LABS: IMMATURE GRANULOCYTE ABSOLUTE 0.03 K/uL (0-1); NUCLEATED RED BLOOD CELLS 0.0 % (0.0-0.19); PLATELET COUNT (AUTO) 201 K/uL (130-400); RED BLOOD CELL COUNT(AUTO) 3.39 MIL/uL (4.50-6.20); RED CELL DISTRIBUTION WIDTH 13.2 % (11.0-15.5); WHITE BLOOD COUNT (AUTO) 4.7 K/uL (4.8-10.8)
[2025-05-20 05:30] LABS: ASPARTATE AMINOTRANSFERASE 15.0 U/L (10-37); CREATININE 0.7 mg/dL (0.5-1.3); GLOMERULAR FILTR. RATE CALC 99.0 mL/min (>90); GLUCOSE,RANDOM 111.0 mg/dL (70-105); SODIUM SERUM 140.0 mmol/L (136-145); TOTAL PROTEIN, SERUM 7.0 g/dL (6.0-8.3); UREA NITROGEN, BLOOD 24.0 mg/dL (7-18)
--- NOTE | 2025-05-20 06:54 | PN ---
[facility] PROGRESS NOTE Date of Visit: May 20, 2025 Time of Visit: 06:52 Events / Notes: 69-year-old male patient with past medical history for iron-deficiency anemia, rectal cancer who had undergone an Low anterior resection with diverting ileostomy on January of 2025. He underwent an ileostomy closure with small-bowel resection. Patient's vital signs have been stable. WBC today of 8.4, hemoglobin 10.6, platelets. Chemistry significant for glucose of 143. Patient's VSS. Patient has tolerated full liquid diet without any n/v. Patient's BBS clear. Abdomen is soft and not distended with active BS. Stoma site incision with dry stain. Patient has voided without difficulties. Poc discussed and encouraged ambulation and I/s exercises. Patient verbalized understanding and agreement. . 05/15/25: Patient's VSS. He is having constant hiccups. He has been able to take in small amounts of fluids. Reports having one episode of emesis after taking vitamin. BBS are clear. Abdomen is soft but mildly distended. Stoma site i ncision with dry dressing. Active bs are present. He is voiding well. Has ambulated and reports passing small amount of flatus. 05/16/25: VSS. Patient reports he continues with hiccups. He states she has had several BMs but continues to have nausea. No emesis reported. Informed of possible need to place Ngtube if vomiting begins. 05/17/25: VSS. WBC 7.4, HGB 11.0, HCT 32.1, PLT 149. Chemistry significant for BUN 21, total bilirubin 1.1. AST, ALT, and alk phos are normal. Patient has had several bouts of emesis last night and this morning. Ngutbe placed and 2500 ml of bilious output noted. Patient reports feeling better once ngtube was placed. He continues to pass flatus and has had bms. Will keep npo but may have ice chips. Encouraged ambulation. He agreed. 05/18/25: VSS. Patient had total 3200 gastric billious output from NGtube in past 24 hours. HGb 10.0, platelets 145 today. WBC 6.2. Patient reports feeling better after NG tube insertion and removal of gastric content. Kub yesterday 1. Enteric tube terminates within the stomach. Bowel loops are normal in caliber. Patient tolerated clear fluids this pm.Will check for residual 05/19/25:Patient had 300 ml last night and 400ml residual this morning after having clear fluids. Temp 100.8 this am. BP, pulse normal. WBC 3.9, HGB 10.7, Plt 184. Potassium 3.2, bun 19, total bili 1.1. AST and ALT normal. Plan for upper GI with small bowel follow through today. Patient had 600 mL of bilious output from NG tube. 05/20/25:Upper GI series significant for partial distal bowel obstruction versus ileus. Interval worsening in the bowel dilation compared to the previous radiographs.UGI series reviewed with Dr. Condon. Recommendations to continue with NG tube and monitor output, recommend ambulation. WBC 4.7,HGB 10.5, plt 207 today. Patient's vital signs remained stable. He remains afebrile. Patient has had 3800 mL of bilious output in the past 24 hours. He has had bowel movements yesterday. ON exam 200ml of billious output noted in collection canister. Patient BBS are clear. He continues with hiccups but reports it has decreased. Active BS present. Recommend ambulation. Small sips of fluids.] Review of Systems: CONSTITUTIONAL: No malaise or change in sensation of wellbeing. ENMT: No rhinorrhea, otorrhea, sinus pain, ear ache. CARDIOVASCULAR: No angina, palpitations, orthopnea or paroxysmal dyspnea. RESPIRATORY: No SOB. GASTROINTESTINAL: No abdominal pain, nausea, vomiting, diarrhea, hematemesis, melena or change in the patient's habitual bowel movements consistency/number. GENITOURINARY: No dysuria, hematuria or change in bladder continence. MUSCULOSKELETAL: No new muscle pain or decrease in muscular strength. No new joint swelling, redness or tenderness. SKIN: No new rash. Physical Exam: GEN: Awake, alert, oriented in person, time and place, and in no acute distress. HEENT: No rhinorrhea. Oral pharyngeal mucosa is pink, moist and within normal limits. CHEST: Inspection, palpation of the chest were unremarkable. Lung auscultation revealed normal breath sounds bilaterally. CARDIAC: Heart sounds are regular. ABD: Soft, non-tender and not distended. No peritoneal signs on palpation. No organomegaly. Normal bowel sounds. Stoma site incision dry and intact.Ng tube clamped at this time. EXT: No cyanosis or clubbing. No edema. SKIN: Intact. No rashes. JOINTS: No evidence of synovitis or acute arthritis. NEURO: Alert and oriented to name, place and person. No focal motor deficits. Normal speech.Strength is normal. Vital Signs (last 8hr) Date Time Temp Pulse Resp B/P (MAP) Pulse Ox O2 Delivery O2 Flow Rate FiO2 05/20/25 05:14 98.1 90 16 121/73 97 Room Air 05/20/25 00:08 97.9 78 16 118/75 98 Room Air Laboratory: [ ] Laboratory: Test 05/20/25 04:45 05/18/25 07:32 Range/Units White Blood Count 4.7 L 4.8-10.8 K/uL Red Blood Count 3.39 L 4.50-6.20 MIL/uL Hemoglobin 10.5 L 14.0-18.0 g/dL Hematocrit 31.2 L 42-54 % Mean Corpuscular Volume 92.0 79-99 fL Mean Corpuscular Hemoglobin 31.0 27.0-33.0 pg Mean Corpuscular Hemoglobin Concent 33.7 32.0-36.0 g/dL Red Cell Distribution Width 13.2 11.0-15.5 % Platelet Count 201 130-400 K/uL Mean Platelet Volume 9.7 7.5-10.5 fL Immature Granulocyte % (Auto) 0.6 0-1 % Neutrophils (%) (Auto) 78.3 H 40.0-77.0 % Lymphocytes (%) (Auto) 11.5 L 21.0-51.0 % Monocytes (%) (Auto) 9.4 3.0-13.0 % Eosinophils (%) (Auto) 0.2 0.0-8.0 % Basophils (%) (Auto) 0.0 0.0-5.0 % Neutrophils # (Auto) 3.7 1.8-7.7 K/uL Lymphocytes # (Auto) 0.5 L 1.0-4.8 K/uL Monocytes # (Auto) 0.4 0.1-1.0 K/uL Eosinophils # (Auto) 0.01 0.00-0.70 K/uL Basophils # (Auto) 0.00 0.00-0.20 K/uL Absolute Immature Granulocyte (auto 0.03 0-1 K/uL Nucleated Red Blood Cells 0.0 0.0-0.19 % Sodium Level 140 136-145 mmol/L Potassium Level 3.0 *L 3.5-5.1 mmol/L Chloride Level 96 L 101-111 mmol/L Carbon Dioxide Level 36 H 21-32 mmol/L Blood Urea Nitrogen 24 H 7-18 mg/dL Creatinine 0.7 0.5-1.3 mg/dL Glomerular Filtration Rate Calc 99 >90 mL/min Random Glucose 111 H 70-105 mg/dL Total Calcium 8.9 8.5-10.1 mg/dL Magnesium Level 2.20 1.80-2.40 mg/dL Total Bilirubin 1.0 0.2-1.0 mg/dL Aspartate Amino Transf (AST/SGOT) 15 10-37 U/L Alanine Aminotransferase (ALT/SGPT) 24 12-78 U/L Alkaline Phosphatase 59 50-136 U/L Total Protein 7.0 6.0-8.3 g/dL Albumin 3.0 L 3.5-5.0 g/dL Blood Gas Specimen Type Arterial Arterial Blood pH 7.476 H 7.350-7.450 Arterial Blood Partial Pressure CO2 37 35-48 mmHg Arterial Blood Partial Pressure O2 80.4 L 83.0-108.0 mmHg Arterial Blood HCO3 26.9 21.0-28.0 mmol/L Arterial Blood Oxygen Saturation 96.6 94.0-98.0 % Arterial Blood Base Excess 3.4 H -2.0-3.0 mmol/L Blood Gas Temperature 37.0 35.5-37.0 CELSIUS Blood Gas Vent Mode RA ROOM AIR FiO2 21.0 % Blood Gas Specimen Comment RR, YEIMI,RN Current Medications Medications (Trade) Dose Ordered Sig/Alla Route PRN Reason Start Time Stop Time Status Last Admin Dose Admin Acetaminophen (TYLenol 325MG TAB) 650 mg Q4H PRN PO TEMPERATURE GREATER THAN 101 05/13/25 09:30 06/12/25 09:29 05/19/25 09:04 650 MG Acetaminophen/ Hydrocodone Bitart (NORco 5/325MG) 1 tab Q4H PRN PO MODERATE PAIN (4-6) 05/13/25 09:30 05/13/25 09:31 DC Albuterol (DUOneb) 1 udvial Q6H PRN IH sob OR WHEEZING 05/13/25 10:30 06/12/25 10:29 Dexamethasone (DeCADron 4 mg TAB) 8 mg ONCE PO 05/14/25 17:00 05/14/25 22:00 DC 05/14/25 17:33 8 MG Enoxaparin Sodium (Lovenox) 40 mg DAILY SQ 05/14/25 09:00 06/13/25 08:59 05/19/25 09:04 40 MG Ertapenem 50 ml @ 100 mls/hr ONCALL IV 05/13/25 08:00 05/13/25 16:03 DC Famotidine (Pepcid 20mg Vial) 20 mg BID IV 05/13/25 21:00 06/12/25 20:59 05/19/25 22:03 20 MG Hydralazine HCl (APRESOLine 20MG INJ) 5 mg Q6H PRN IV ADMINISTER FOR SBP > 160 05/13/25 11:30 06/12/25 11:29 Lactated Ringer's 1,000 ml @ 75 mls/hr [id number] IV 05/16/25 06:30 06/15/25 06:29 05/20/25 03:22 75 MLS/HR Magnesium Sulfate 50 ml @ 0 mls/hr PROTOCOL IV 05/14/25 06:00 06/13/25 05:59 05/17/25 14:33 25 MLS/HR Magnesium Sulfate 50 ml @ 0 mls/hr PROTOCOL IV 05/17/25 07:30 05/17/25 07:23 DC Metoclopramide HCl (regLAN 10MG IV) 10 mg ONCE IVP 05/14/25 17:00 05/14/25 22:00 DC 05/14/25 17:33 10 MG Metoclopramide HCl (regLAN 10MG IV) 10 mg Q8H5 PRN IVP OTHER [SEE ORDER COMMENTS] 05/16/25 10:30 06/15/25 10:29 05/19/25 06:45 10 MG Morphine Sulfate (morPHINE 2MG SYG) 2 mg Q3H PRN IV MODERATE PAIN (4-6) 05/13/25 09:30 05/18/25 12:29 DC Morphine Sulfate (morPHINE 4MG SYG) 4 mg Q3H PRN IV SEVERE PAIN (7-10) 05/13/25 09:30 05/18/25 12:29 DC 05/13/25 13:17 4 MG Multivitamins Therapeutic (Multivitamin Tablet) 1 tab DAILY PO 05/14/25 09:00 06/13/25 08:59 05/19/25 09:04 1 TAB Ondansetron HCl (zoFRAN 4MG INJ) 4 mg Q4H PRN IVP NAUSEA 05/13/25 09:30 06/12/25 09:29 05/15/25 15:18 4 MG Potassium Chloride/Dextrose/ Sod Cl 1,000 ml @ 75 mls/hr [id number] IV 05/13/25 09:30 05/16/25 10:09 DC 05/15/25 21:22 75 MLS/HR Potassium Chloride 100 ml @ 50 mls/hr AD PRN IV POTASSIUM PROTOCOL 05/19/25 06:30 06/18/25 06:29 05/20/25 06:16 50 MLS/HR Potassium Chloride 100 ml @ 50 mls/hr PROTOCOL IV 05/18/25 06:30 05/19/25 06:05 DC 05/19/25 05:59 50 MLS/HR Potassium Chloride 100 ml @ 50 mls/hr PROTOCOL IV 05/18/25 11:00 05/18/25 06:12 DC Simethicone (Mylicon) 40 mg TID PRN PO GI GAS 05/13/25 18:30 06/12/25 18:29 05/19/25 09:03 40 MG Sodium Chloride (Sodium Chloride) 2,000 mg ONCE PO 05/16/25 09:00 05/16/25 19:00 DC 05/16/25 11:05 2,000 MG Diagnostics / Radiology: [COPY/PASTE HERE IF NO REPORTS PLEASE DELETE SECTION] Assessment: [ Emesis Ileostomy status History of rectal cancer Ileus] Plan: Patient may have small sips of clear fluids Encourage ambulation Encourage IS exercises Pain medicines as needed Antiemetics p.r.n NG tube to LIS. May clamp for 30 min QID and have patient ambulate May clamp NG tube for clear liquid feeding. KUB in am Plan for disposition in the next 24-48 hours. Please call with questions concerns, and change in clinical status Appreciate hospitalist's assistance in our patient care.] BIMAL LINDSEY NP May 20, 2025 06:54
--- NOTE | 2025-05-20 11:47 | PN ---
[facility] PROGRESS NOTE Date of Service: May 20, 2025 Time of Service: 11:45 SUBJECTIVE: [ 05/13 This is a 69-year-old male with prior history of malignant neoplasm of the sigmoid colon. Has prior history of colostomy in 08/2024 and low anterior resection with diverting ileostomy in 02/17/2025. Patient underwent closure of ileostomy today with small bowel resection. Patient was seen in PACU postprocedure. He appears very sleepy post anesthesia, he is able to tell me he is not in significant pain. Denies any chest pain, shortness of breath. No significant underlying medical history noted otherwise. We will continue to monitor this patient closely postoperatively. 05/14 patient was seen by nurse practitioner and physician during rounding in room 301. Patient is day one s/p ileostomy closure with small-bowel resection with Dr. Condon. WBC 8.4. H&H stable. Patient denies any shortness of breath, chest pain, nausea, vomiting or any other discomfort. Surgical site present with no signs of infection. We will continue to monitor patient in the meantime. A.m. labs. Disposition as per primary. 05/15 patient was seen by nurse practitioner and physician during rounding in room 301. Patient is on GI soft diet and that is tolerating well. Patient denies any shortness of breath, chest pain, nausea, vomiting or any other discomfort other than pain to the surgical site. Leal catheter was already discontinued on 05/14/2025. We will continue to monitor patient in the meantime. Disposition per primary. 05/16 patient was seen by nurse practitioner and physician during rounding in room 301. X-ray of the abdomen was performed and showed autonomic ileus with distended loops of small bowel. Gastrografin of small bowel was recommended. Nurse practitioner notified GI on above-stated results. They will follow up. Patient at this moment on GI soft diet and tolerating well. We will continue to monitor patient in the meantime. A.m. labs 05/17 patient was seen by nurse practitioner and physician during rounding in room 301. Patient is s/p KUB which showed adenomatous ileus. bicycle technicianrestaurant shift supervisor reach out to the primary to notify regarding the results and as per primary NPO and insert NG tube. Patient also was vomiting throughout the night. Patient also will receive 20 mEq of IV potassium and 2 g of magnesium. We will continue to monitor patient in the meantime. A.m. labs. Disposition as per primary 05/18 Pt was seen by MOTORCOACH DRIVER and Physician. Pt remains NPO as per GI recommendations. NG Tube had 2300 cc output day shift yesterday, night had 500cc and so far day shift today already 600cc. XR Abdomen performed, pending reading. We will continue to monitor pt in a meantime. AM labs. Discharge as per Primary dr Condon] 05/19/25 patient is seen and examined. NG tube output 900. Primary nurse reports patient was started on diet NG tube was clamped residual was 400 GI was made aware. No nausea no vomiting. T-max 100.8. v abdominal x-ray was negative we will wait for GI recommendations discharge as per primary doctor supa 05/20/2025. Patient was seen earlier patient continues with high residuals output 1500 overnight. We will consult dietitian for failure to thrive: We will follow the recommendations GI continues to follow patient. They we will continue with cleared liquid clamped NG tube 30 minutes4 times a day for clear liquid feedings. Primary nurse reports no events overnight REVIEW OF SYSTEMS: CONSTITUTIONAL: Denies fevers, chills, or night sweats. No unintentional weight loss reported. NEUROLOGICAL: Denies headache, amaurosis fugax, motor weakness, sensory deficit, vertigo/spinning sensation, gait abnormalities, or tremors. ENT: No hearing loss, otalgia, otorrhea, rhinitis, rhinorrhea, hoarseness, or sore throat. CARDIOVASCULAR: Denies any exertional angina, dyspnea on exertion, orthopnea, paroxysmal nocturnal dyspnea, palpitations, life-threatening arrhythmias, claudication. PULMONARY: Denies any shortness of breath, cough, phlegm/sputum, hemoptysis, pleuritic chest pain. SLEEP: Denies morning headaches, daytime somnolence or napping. Denies difficulty falling asleep, staying asleep, waking from sleep. Denies knowledge of snoring. GASTROINTESTINAL: Denies any type of dysphagia to either liquids or solids. De nies pyrosis, early satiety, abdominal pain, diarrhea, constipation, or changes in stool consistency or caliber. Denies coffee-ground emesis, hematemesis, hematochezia, or melanotic stools. Complains of pain to the surgical site. Complains of nausea and vomiting. MOTORCOACH DRIVER Tube in place GENITOURINARY: Denies frequency, urgency, nocturia, hematuria or incontinence (Storage/Irritative symptoms.) Low urinary stream, straining to void, urinary intermittency or hesitancy, splitting of the voiding stream, terminal dribbling. ENDOCRINOLOGIC: Denies polyuria, polydipsia, polyphagia or heat/cold intolerances. HEMATOLOGIC: Denies thrombophilia/previous clots, or coagulopathy/bleeding disorders. ONCOLOGIC: Denies personal history of malignancy. DERMATOLOGIC: Denies rashes or pruritus. PSYCHIATRIC: Denies any suicidal or homicidal ideation. Denies hallucinations. PHYSICAL EXAM GENERAL APPEARANCE: The patient is awake, alert, and oriented, in no acute cardiopulmonary distress. NEUROLOGICAL: Cranial nerves II-XII grossly intact. Motor is 5/5 in bilateral upper and lower extremities proximal to distal. No sensory deficits. HEENT: Face is symmetric. Pupils are equal and reactive. Extraocular movements are intact. NECK: Supple. No JVD. No thyromegaly. No submental, submandibular, pre- /postauricular, occipital or supraclavicular lymphadenopathy. CHEST: Normal chest expansion. No Telemetry. LUNGS: Absence of any rales, rhonchi or any wheezing. CARDIOVASCULAR: Regular. S1 and S2 normal. No appreciable rubs, murmurs or gallops. ABDOMEN: Soft, nontender, and nondistended. There is no rebound, voluntary guarding, or rigidity. : Deferred. No Leal. EXTREMITIES: Non-edematous and not cyanotic. No clubbing. Good capillary refill. SKIN: No skin breakdown. Vital Signs (last 8hr) Date Time Temp Pulse Resp B/P (MAP) Pulse Ox O2 Delivery O2 Flow Rate FiO2 05/20/25 08:00 98.2 91 18 112/66 95 Room Air 05/20/25 05:14 98.1 90 16 121/73 97 Room Air LABS: Laboratory: Test 05/20/25 04:45 Range/Units White Blood Count 4.7 L 4.8-10.8 K/uL Red Blood Count 3.39 L 4.50-6.20 MIL/uL Hemoglobin 10.5 L 14.0-18.0 g/dL Hematocrit 31.2 L 42-54 % Mean Corpuscular Volume 92.0 79-99 fL Mean Corpuscular Hemoglobin 31.0 27.0-33.0 pg Mean Corpuscular Hemoglobin Concent 33.7 32.0-36.0 g/dL Red Cell Distribution Width 13.2 11.0-15.5 % Platelet Count 201 130-400 K/uL Mean Platelet Volume 9.7 7.5-10.5 fL Immature Granulocyte % (Auto) 0.6 0-1 % Neutrophils (%) (Auto) 78.3 H 40.0-77.0 % Lymphocytes (%) (Auto) 11.5 L 21.0-51.0 % Monocytes (%) (Auto) 9.4 3.0-13.0 % Eosinophils (%) (Auto) 0.2 0.0-8.0 % Basophils (%) (Auto) 0.0 0.0-5.0 % Neutrophils # (Auto) 3.7 1.8-7.7 K/uL Lymphocytes # (Auto) 0.5 L 1.0-4.8 K/uL Monocytes # (Auto) 0.4 0.1-1.0 K/uL Eosinophils # (Auto) 0.01 0.00-0.70 K/uL Basophils # (Auto) 0.00 0.00-0.20 K/uL Absolute Immature Granulocyte (auto 0.03 0-1 K/uL Nucleated Red Blood Cells 0.0 0.0-0.19 % Sodium Level 140 136-145 mmol/L Potassium Level 3.0 *L 3.5-5.1 mmol/L Chloride Level 96 L 101-111 mmol/L Carbon Dioxide Level 36 H 21-32 mmol/L Blood Urea Nitrogen 24 H 7-18 mg/dL Creatinine 0.7 0.5-1.3 mg/dL Glomerular Filtration Rate Calc 99 >90 mL/min Random Glucose 111 H 70-105 mg/dL Total Calcium 8.9 8.5-10.1 mg/dL Magnesium Level 2.20 1.80-2.40 mg/dL Total Bilirubin 1.0 0.2-1.0 mg/dL Aspartate Amino Transf (AST/SGOT) 15 10-37 U/L Alanine Aminotransferase (ALT/SGPT) 24 12-78 U/L Alkaline Phosphatase 59 50-136 U/L Total Protein 7.0 6.0-8.3 g/dL Albumin 3.0 L 3.5-5.0 g/dL Current Medications Medications (Trade) Dose Ordered Sig/Alla Route PRN Reason Start Time Stop Time Status Last Admin Dose Admin Acetaminophen (TYLenol 325MG TAB) 650 mg Q4H PRN PO TEMPERATURE GREATER THAN 101 05/13/25 09:30 06/12/25 09:29 05/19/25 09:04 650 MG Acetaminophen/ Hydrocodone Bitart (NORco 5/325MG) 1 tab Q4H PRN PO MODERATE PAIN (4-6) 05/13/25 09:30 05/13/25 09:31 DC Albuterol (DUOneb) 1 udvial Q6H PRN IH sob OR WHEEZING 05/13/25 10:30 06/12/25 10:29 Dexamethasone (DeCADron 4 mg TAB) 8 mg ONCE PO 05/14/25 17:00 05/14/25 22:00 DC 05/14/25 17:33 8 MG Enoxaparin Sodium (Lovenox) 40 mg DAILY SQ 05/14/25 09:00 06/13/25 08:59 05/20/25 08:37 40 MG Ertapenem 50 ml @ 100 mls/hr ONCALL IV 05/13/25 08:00 05/13/25 16:03 DC Famotidine (Pepcid 20mg Vial) 20 mg BID IV 05/13/25 21:00 06/12/25 20:59 05/20/25 08:37 20 MG Hydralazine HCl (APRESOLine 20MG INJ) 5 mg Q6H PRN IV ADMINISTER FOR SBP > 160 05/13/25 11:30 06/12/25 11:29 Lactated Ringer's 1,000 ml @ 75 mls/hr [id number] IV 05/16/25 06:30 06/15/25 06:29 05/20/25 03:22 75 MLS/HR Magnesium Sulfate 50 ml @ 0 mls/hr PROTOCOL IV 05/14/25 06:00 06/13/25 05:59 05/17/25 14:33 25 MLS/HR Magnesium Sulfate 50 ml @ 0 mls/hr PROTOCOL IV 05/17/25 07:30 05/17/25 07:23 DC Metoclopramide HCl (regLAN 10MG IV) 10 mg ONCE IVP 05/14/25 17:00 05/14/25 22:00 DC 05/14/25 17:33 10 MG Metoclopramide HCl (regLAN 10MG IV) 10 mg Q6H IVP 05/20/25 07:00 06/19/25 06:59 05/20/25 08:37 10 MG Metoclopramide HCl (regLAN 10MG IV) 10 mg Q8H5 PRN IVP OTHER [SEE ORDER COMMENTS] 05/16/25 10:30 05/20/25 06:53 DC 05/19/25 06:45 10 MG Morphine Sulfate (morPHINE 2MG SYG) 2 mg Q3H PRN IV MODERATE PAIN (4-6) 05/13/25 09:30 05/18/25 12:29 DC Morphine Sulfate (morPHINE 4MG SYG) 4 mg Q3H PRN IV SEVERE PAIN (7-10) 05/13/25 09:30 05/18/25 12:29 DC 05/13/25 13:17 4 MG Multivitamins Therapeutic (Multivitamin Tablet) 1 tab DAILY PO 05/14/25 09:00 06/13/25 08:59 05/19/25 09:04 1 TAB Ondansetron HCl (zoFRAN 4MG INJ) 4 mg Q4H PRN IVP NAUSEA 05/13/25 09:30 06/12/25 09:29 05/15/25 15:18 4 MG Potassium Chloride/Dextrose/ Sod Cl 1,000 ml @ 75 mls/hr [id number] IV 05/13/25 09:30 05/16/25 10:09 DC 05/15/25 21:22 75 MLS/HR Potassium Chloride 100 ml @ 50 mls/hr AD PRN IV POTASSIUM PROTOCOL 05/19/25 06:30 06/18/25 06:29 05/20/25 06:16 50 MLS/HR Potassium Chloride 100 ml @ 50 mls/hr PROTOCOL IV 05/18/25 06:30 05/19/25 06:05 DC 05/19/25 05:59 50 MLS/HR Potassium Chloride 100 ml @ 50 mls/hr PROTOCOL IV 05/18/25 11:00 05/18/25 06:12 DC Simethicone (Mylicon) 40 mg TID PRN PO GI GAS 05/13/25 18:30 06/12/25 18:29 05/19/25 09:03 40 MG Sodium Chloride (Sodium Chloride) 2,000 mg ONCE PO 05/16/25 09:00 05/16/25 19:00 DC 05/16/25 11:05 2,000 MG DIAGNOSTICS / RADIOLOGY: [ ] ASSESSMENT: Status post ileostomy, 05/13/2025, by Dr. Condon Prior history of LAR with diverting ileostomy in 02/17/2025, POA Adynamic ileus Per x-ray abdomen 05/16/2025 History of colostomy in 08/2024, POA History of malignant neoplasm of sigmoid colon, POA History of anemia, POA PLAN: Continue with close monitoring in medical-surgical floor Continue with pain control and IV fluids post surgery Continue with postsurgical care by Dr. Condon We will continue post residual checking after meals. As per GI clamped for 30 minutes NG tube 4 times a day for clear liquid feedings. It Continue to replace electrolytes to keep potassium above 4.0 magnesium above 2.0 ongoing surveillance PT to eval and treat patient. Continue with IS, and out of bed to chair twice daily A.m. labs Continue with GI prophylaxis with Pepcid, DVT prophylaxis with Lovenox ATTESTATION BY PHYSICIAN I have seen and examined the patient. I reviewed the documentation, medical decision making, and treatment plan as noted by the mid-level provider above. I agree with the findings and plan of care. WALTER WELLS MD, ELIZABETH NP May 20, 2025 11:47
--- NOTE | 2025-05-20 18:15 | NUR ---
NGT OUTPUT:100ML BIMAL LINDSEY MADE AWARE. GAVE OKAY TO REMOVE NGT AT THIS TIME. TO KEEP ON CLEARS. NO FURTHER ORDERS AT THIS TIME. Addendum: 05/20/25 at 1818 by REMIGIO TOVAR, MIKHAIL ELIZONDO NGT REMOVED AT THIS TIME. PT TOLERATED WELL. NO COMPLICATIONS.
--- NOTE | 2025-05-20 21:30 | NUR ---
Wound care done to abdomen, as per orders. Tolerated well. Denies pain. Denies nausea/vomiting.
[2025-05-21] VITALS (8 sets, daily range): BP systolic 114–150; BP diastolic 65–80; PULSE 69–92; RESP 18–20; TEMP 97.4–98.6; O2SAT 91–98
[2025-05-21 05:19] LABS: IMMATURE GRANULOCYTE ABSOLUTE 0.04 K/uL (0-1); NUCLEATED RED BLOOD CELLS 0.0 % (0.0-0.19); PLATELET COUNT (AUTO) 211 K/uL (130-400); RED BLOOD CELL COUNT(AUTO) 3.19 MIL/uL (4.50-6.20); RED CELL DISTRIBUTION WIDTH 13.2 % (11.0-15.5); WHITE BLOOD COUNT (AUTO) 6.3 K/uL (4.8-10.8)
[2025-05-21 05:42] LABS: ASPARTATE AMINOTRANSFERASE 15.0 U/L (10-37); CREATININE 0.7 mg/dL (0.5-1.3); GLOMERULAR FILTR. RATE CALC 99.0 mL/min (>90); GLUCOSE,RANDOM 108.0 mg/dL (70-105); SODIUM SERUM 140.0 mmol/L (136-145); TOTAL PROTEIN, SERUM 6.4 g/dL (6.0-8.3); UREA NITROGEN, BLOOD 17.0 mg/dL (7-18)
--- NOTE | 2025-05-21 07:54 | HMCIMG ---
EXAM: Small bowel series. Single view CLINICAL HISTORY: Pain. COMPARISON: Prior abdominal radiograph dated 18 May 2025. FINDINGS: Surgical clips in the right upper quadrant are probably post-cholecystectomy surgical clips. The nasogastric tube is identified with the tip in the region of the gastric fundus. Contrast-filled jejunal and ileal loops are identified, and contrast-filled cecum and proximal ascending colon. No abnormal dilatation of the bowel loops with tethering or air fluid levels. Nonobstructed nonspecific bowel gas pattern. No free air is evident. No abnormal calcification. No aggressive appearing osseous lesion. IMPRESSION: No acute process. The nasogastric tube is identified with the tip in the region of the gastric fundus. Contrast-filled jejunal and ileal loops are identified, and contrast-filled cecum and proximal ascending colon. No abnormal dilatation of the bowel loops with tethering or air fluid levels. Compared to the prior study, there are no obvious features of bowel obstruction. /[place]
--- NOTE | 2025-05-21 08:08 | NUR ---
MICROFILM PROCESSOR NOTIFICATION Notified of order for water analyst evaluation for possible PPN recommendation.
--- NOTE | 2025-05-21 08:59 | PN ---
[facility] PROGRESS NOTE Date of Service: May 21, 2025 Time of Service: 08:57 SUBJECTIVE: [ 05/13 This is a 69-year-old male with prior history of malignant neoplasm of the sigmoid colon. Has prior history of colostomy in 08/2024 and low anterior resection with diverting ileostomy in 02/17/2025. Patient underwent closure of ileostomy today with small bowel resection. Patient was seen in PACU postprocedure. He appears very sleepy post anesthesia, he is able to tell me he is not in significant pain. Denies any chest pain, shortness of breath. No significant underlying medical history noted otherwise. We will continue to monitor this patient closely postoperatively. 05/14 patient was seen by nurse practitioner and physician during rounding in room 301. Patient is day one s/p ileostomy closure with small-bowel resection with Dr. Condon. WBC 8.4. H&H stable. Patient denies any shortness of breath, chest pain, nausea, vomiting or any other discomfort. Surgical site present with no signs of infection. We will continue to monitor patient in the meantime. A.m. labs. Disposition as per primary. 05/15 patient was seen by nurse practitioner and physician during rounding in room 301. Patient is on GI soft diet and that is tolerating well. Patient denies any shortness of breath, chest pain, nausea, vomiting or any other discomfort other than pain to the surgical site. Leal catheter was already discontinued on 05/14/2025. We will continue to monitor patient in the meantime. Disposition per primary. 05/16 patient was seen by nurse practitioner and physician during rounding in room 301. X-ray of the abdomen was performed and showed autonomic ileus with distended loops of small bowel. Gastrografin of small bowel was recommended. Nurse practitioner notified GI on above-stated results. They will follow up. Patient at this moment on GI soft diet and tolerating well. We will continue to monitor patient in the meantime. A.m. labs 05/17 patient was seen by nurse practitioner and physician during rounding in room 301. Patient is s/p KUB which showed adenomatous ileus. business support professionalcaustic cresylate shift superintendent reach out to the primary to notify regarding the results and as per primary NPO and insert NG tube. Patient also was vomiting throughout the night. Patient also will receive 20 mEq of IV potassium and 2 g of magnesium. We will continue to monitor patient in the meantime. A.m. labs. Disposition as per primary 05/18 Pt was seen by PICKING TECH and Physician. Pt remains NPO as per GI recommendations. NG Tube had 2300 cc output day shift yesterday, night had 500cc and so far day shift today already 600cc. XR Abdomen performed, pending reading. We will continue to monitor pt in a meantime. AM labs. Discharge as per Primary dr Condon] 05/19/25 patient is seen and examined. NG tube output 900. Primary nurse reports patient was started on diet NG tube was clamped residual was 400 GI was made aware. No nausea no vomiting. T-max 100.8. v abdominal x-ray was negative we will wait for GI recommendations discharge as per primary doctor supa 05/20/2025. Patient was seen earlier patient continues with high residuals output 1500 overnight. We will consult dietitian for failure to thrive: We will follow the recommendations GI continues to follow patient. They we will continue with cleared liquid clamped NG tube 30 minutes4 times a day for clear liquid feedings. Primary nurse reports no events overnight 05/21/25 The patient continue with high residuals. report no N/V or abdominal pain patient report ambulating: will wait for GI recommendations. REVIEW OF SYSTEMS: CONSTITUTIONAL: Denies fevers, chills, or night sweats. No unintentional weight loss reported. NEUROLOGICAL: Denies headache, amaurosis fugax, motor weakness, sensory deficit, vertigo/spinning sensation, gait abnormalities, or tremors. ENT: No hearing loss, otalgia, otorrhea, rhinitis, rhinorrhea, hoarseness, or sore throat. CARDIOVASCULAR: Denies any exertional angina, dyspnea on exertion, orthopnea, paroxysmal nocturnal dyspnea, palpitations, life-threatening arrhythmias, claudication. PULMONARY: Denies any shortness of breath, cough, phlegm/sputum, hemoptysis, pleuritic chest pain. SLEEP: Denies morning headaches, daytime somnolence or napping. Denies difficulty falling asleep, staying asleep, waking from sleep. Denies knowledge of snoring. GASTROINTESTINAL: Denies any type of dysphagia to either liquids or solids. Denies pyrosis, early satiety, abdominal pain, diarrhea, constipation, or changes in stool consistency or caliber. Denies coffee-ground emesis, hematemesis, hematochezia, or melanotic stools. Complains of pain to the surgical site. Complains of nausea and vomiting. PICKING TECH Tube in place GENITOURINARY: Denies frequency, urgency, nocturia, hematuria or incontinence (Storage/Irritative symptoms.) Low urinary stream, straining to void, urinary intermittency or hesitancy, splitting of the voiding stream, terminal dribbling. ENDOCRINOLOGIC: Denies polyuria, polydipsia, polyphagia or heat/cold intolerances. HEMATOLOGIC: Denies thrombophilia/previous clots, or coagulopathy/bleeding disorders. ONCOLOGIC: Denies personal history of malignancy. DERMATOLOGIC: Denies rashes or pruritus. PSYCHIATRIC: Denies any suicidal or homicidal ideation. Denies hallucinations. PHYSICAL EXAM GENERAL APPEARANCE: The patient is awake, alert, and oriented, in no acute cardiopulmonary distress. NEUROLOGICAL: Cranial nerves II-XII grossly intact. Motor is 5/5 in bilateral upper and lower extremities proximal to distal. No sensory deficits. HEENT: Face is symmetric. Pupils are equal and reactive. Extraocular movements are intact. NECK: Supple. No JVD. No thyromegaly. No submental, submandibular, pre-/p ostauricular, occipital or supraclavicular lymphadenopathy. CHEST: Normal chest expansion. No Telemetry. LUNGS: Absence of any rales, rhonchi or any wheezing. CARDIOVASCULAR: Regular. S1 and S2 normal. No appreciable rubs, murmurs or gallops. ABDOMEN: Soft, nontender, and nondistended. There is no rebound, voluntary guarding, or rigidity. : Deferred. No Leal. EXTREMITIES: Non-edematous and not cyanotic. No clubbing. Good capillary refill. SKIN: No skin breakdown. Vital Signs (last 8hr) Date Time Temp Pulse Resp B/P (MAP) Pulse Ox O2 Delivery O2 Flow Rate FiO2 05/21/25 08:09 98.6 82 18 150/80 97 Room Air 05/21/25 04:13 97.9 73 20 130/79 97 Room Air LABS: Laboratory: Test 05/21/25 04:51 Range/Units White Blood Count 6.3 4.8-10.8 K/uL Red Blood Count 3.19 L 4.50-6.20 MIL/uL Hemoglobin 9.8 L 14.0-18.0 g/dL Hematocrit 29.1 L 42-54 % Mean Corpuscular Volume 91.2 79-99 fL Mean Corpuscular Hemoglobin 30.7 27.0-33.0 pg Mean Corpuscular Hemoglobin Concent 33.7 32.0-36.0 g/dL Red Cell Distribution Width 13.2 11.0-15.5 % Platelet Count 211 130-400 K/uL Mean Platelet Volume 9.4 7.5-10.5 fL Immature Granulocyte % (Auto) 0.6 0-1 % Neutrophils (%) (Auto) 72.2 40.0-77.0 % Lymphocytes (%) (Auto) 9.5 L 21.0-51.0 % Monocytes (%) (Auto) 10.3 3.0-13.0 % Eosinophils (%) (Auto) 7.1 0.0-8.0 % Basophils (%) (Auto) 0.3 0.0-5.0 % Neutrophils # (Auto) 4.6 1.8-7.7 K/uL Lymphocytes # (Auto) 0.6 L 1.0-4.8 K/uL Monocytes # (Auto) 0.7 0.1-1.0 K/uL Eosinophils # (Auto) 0.45 0.00-0.70 K/uL Basophils # (Auto) 0.02 0.00-0.20 K/uL Absolute Immature Granulocyte (auto 0.04 0-1 K/uL Nucleated Red Blood Cells 0.0 0.0-0.19 % Sodium Level 140 136-145 mmol/L Potassium Level 3.4 L 3.5-5.1 mmol/L Chloride Level 99 L 101-111 mmol/L Carbon Dioxide Level 33 H 21-32 mmol/L Blood Urea Nitrogen 17 7-18 mg/dL Creatinine 0.7 0.5-1.3 mg/dL Glomerular Filtration Rate Calc 99 >90 mL/min Random Glucose 108 H 70-105 mg/dL Total Calcium 8.9 8.5-10.1 mg/dL Magnesium Level 2.10 1.80-2.40 mg/dL Total Bilirubin 0.8 0.2-1.0 mg/dL Aspartate Amino Transf (AST/SGOT) 15 10-37 U/L Alanine Aminotransferase (ALT/SGPT) 19 12-78 U/L Alkaline Phosphatase 51 50-136 U/L Total Protein 6.4 6.0-8.3 g/dL Albumin 2.7 L 3.5-5.0 g/dL Current Medications Medications (Trade) Dose Ordered Sig/Alla Route PRN Reason Start Time Stop Time Status Last Admin Dose Admin Acetaminophen (TYLenol 325MG TAB) 650 mg Q4H PRN PO TEMPERATURE GREATER THAN 101 05/13/25 09:30 06/12/25 09:29 05/19/25 09:04 650 MG Acetaminophen/ Hydrocodone Bitart (NORco 5/325MG) 1 tab Q4H PRN PO MODERATE PAIN (4-6) 05/13/25 09:30 05/13/25 09:31 DC Albuterol (DUOneb) 1 udvial Q6H PRN IH sob OR WHEEZING 05/13/25 10:30 06/12/25 10:29 Dexamethasone (DeCADron 4 mg TAB) 8 mg ONCE PO 05/14/25 17:00 05/14/25 22:00 DC 05/14/25 17:33 8 MG Enoxaparin Sodium (Lovenox) 40 mg DAILY SQ 05/14/25 09:00 06/13/25 08:59 05/21/25 08:29 40 MG Ertapenem 50 ml @ 100 mls/hr ONCALL IV 05/13/25 08:00 05/13/25 16:03 DC Famotidine (Pepcid 20mg Vial) 20 mg BID IV 05/13/25 21:00 06/12/25 20:59 05/21/25 08:29 20 MG Hydralazine HCl (APRESOLine 20MG INJ) 5 mg Q6H PRN IV ADMINISTER FOR SBP > 160 05/13/25 11:30 06/12/25 11:29 Lactated Ringer's 1,000 ml @ 75 mls/hr [id number] IV 05/16/25 06:30 06/15/25 06:29 05/21/25 06:43 75 MLS/HR Magnesium Sulfate 50 ml @ 0 mls/hr PROTOCOL IV 05/14/25 06:00 06/13/25 05:59 05/17/25 14:33 25 MLS/HR Magnesium Sulfate 50 ml @ 0 mls/hr PROTOCOL IV 05/17/25 07:30 05/17/25 07:23 DC Metoclopramide HCl (regLAN 10MG IV) 10 mg ONCE IVP 05/14/25 17:00 05/14/25 22:00 DC 05/14/25 17:33 10 MG Metoclopramide HCl (regLAN 10MG IV) 10 mg Q6H IVP 05/20/25 07:00 06/19/25 06:59 05/20/25 18:08 10 MG Metoclopramide HCl (regLAN 10MG IV) 10 mg Q8H5 PRN IVP OTHER [SEE ORDER COMMENTS] 05/16/25 10:30 05/20/25 06:53 DC 05/19/25 06:45 10 MG Morphine Sulfate (morPHINE 2MG SYG) 2 mg Q3H PRN IV MODERATE PAIN (4-6) 05/13/25 09:30 05/18/25 12:29 DC Morphine Sulfate (morPHINE 4MG SYG) 4 mg Q3H PRN IV SEVERE PAIN (7-10) 05/13/25 09:30 05/18/25 12:29 DC 05/13/25 13:17 4 MG Multivitamins Therapeutic (Multivitamin Tablet) 1 tab DAILY PO 05/14/25 09:00 06/13/25 08:59 05/19/25 09:04 1 TAB Ondansetron HCl (zoFRAN 4MG INJ) 4 mg Q4H PRN IVP NAUSEA 05/13/25 09:30 06/12/25 09:29 05/15/25 15:18 4 MG Potassium Chloride/Dextrose/ Sod Cl 1,000 ml @ 75 mls/hr [id number] IV 05/13/25 09:30 05/16/25 10:09 DC 05/15/25 21:22 75 MLS/HR Potassium Chloride 100 ml @ 50 mls/hr AD PRN IV POTASSIUM PROTOCOL 05/19/25 06:30 06/18/25 06:29 05/21/25 06:54 50 MLS/HR Potassium Chloride 100 ml @ 50 mls/hr PROTOCOL IV 05/18/25 06:30 05/19/25 06:05 DC 05/19/25 05:59 50 MLS/HR Potassium Chloride 100 ml @ 50 mls/hr PROTOCOL IV 05/18/25 11:00 05/18/25 06:12 DC Simethicone (Mylicon) 40 mg TID PRN PO GI GAS 05/13/25 18:30 06/12/25 18:29 05/19/25 09:03 40 MG Sodium Chloride (Sodium Chloride) 2,000 mg ONCE PO 05/16/25 09:00 05/16/25 19:00 DC 05/16/25 11:05 2,000 MG DIAGNOSTICS / RADIOLOGY: [ ] ASSESSMENT: Status post ileostomy, 05/13/2025, by Dr. Condon Prior history of LAR with diverting ileostomy in 02/17/2025, POA Adynamic ileus Per x-ray abdomen 05/16/2025 History of colostomy in 08/2024, POA History of malignant neoplasm of sigmoid colon, POA History of anemia, POA PLAN: Continue with close monitoring in medical-surgical floor Continue with pain control and IV fluids post surgery Continue with postsurgical care by Dr. Condon We will continue post residual checking after meals. As per GI clamped for 30 minutes NG tube 4 times a day for clear liquid feedings. It Continue to replace electrolytes to keep potassium above 4.0 magnesium above 2.0 ongoing surveillance PT to eval and treat patient. Continue with IS, and out of bed to chair twice daily A.m. labs Continue with GI prophylaxis with Pepcid, DVT prophylaxis with Lovenox ATTESTATION BY PHYSICIAN I have seen and examined the patient. I reviewed the documentation, medical decision making, and treatment plan as noted by the mid-level provider above. I agree with the findings and plan of care. WALTER WELLS MD, ELIZABETH NP May 21, 2025 08:59
--- NOTE | 2025-05-21 12:02 | NUR ---
Nutrition consult per PPN recs Reviewed labs, notes, and medications. Pt with clamped NG for 30 min 4x per day, on CLD since admin, saline flush, K 3.4(L), BG 108(H) per chart review. 50-75 %PO intake, wt via bed scale, NG tube off, last BM 05/21/25, abd incision, no edema, mild muscle and fat loss per nursing. Pt reported feeling upset towards the diet not advancing, agreeable to prostat jello tid and ensure clear tid. RD informed MD is the only one that can advance diet, and that RD will provide recs to provide nutrition via PPN, Pt verbalized understanding. Visually assessed mild muscle and muscle loss. Pt with non-severe PCM, Supplement thiamin 100 mg/day for 5-7 days + MVI QD for at least 10 days. Once diet advanced to GI soft/bland and PO intake is >75 %, PPN may be d/c. Recommendations: -Provide PPN when medically feasible: Clinimix 4.25/5 @ 83.3 ml/hr x 24 hrs Provides: 85 gm pro, 100 gm CHO, 2000 ml, 680 kcal -Include 10 ml adult MVI and 3 lm trace elements -Provide 3x weekly lipid emulsion to prevent essential fatty acid deficiency -Provide prostat + ensure clear TID while Pt on CLD -Monitor PO intake -Encourage PO intake as able -Monitor BM -If no BM >3 days consider stool softener -Consider probiotics QD per diarrhea -Monitor electrolytes -Replenish electrolytes per protocol -Monitor wts -Reweigh as able -Order Vit D, vit b-12 labs to rule out deficiencies -Provide MVI QD PO if medically feasible -Advance diet when medically feasible -Texture per PROPERTY CUSTODIAN recs -Recommend Pt to follow up with PCP -Monitor goals of care RD to follow + available for consult per protocol Addendum: 05/21/25 at [address] Amended: Links added.
--- NOTE | 2025-05-21 15:10 | PN ---
[facility] PROGRESS NOTE Date of Visit: May 21, 2025 Time of Visit: 15:07 Events / Notes: 69-year-old male patient with past medical history for iron-deficiency anemia, rectal cancer who had undergone an Low anterior resection with diverting ileostomy on January of 2025. He underwent an ileostomy closure with small-bowel resection. Patient's vital signs have been stable. WBC today of 8.4, hemoglobin 10.6, platelets. Chemistry significant for glucose of 143. Patient's VSS. Patient has tolerated full liquid diet without any n/v. Patient's BBS clear. Abdomen is soft and not distended with active BS. Stoma site incision with dry stain. Patient has voided without difficulties. Poc discussed and encouraged ambulation and I/s exercises. Patient verbalized understanding and agreement. . 05/15/25: Patient's VSS. He is having constant hiccups. He has been able to take in small amounts of fluids. Reports having one episode of emesis after taking vitamin. BBS are clear. Abdomen is soft but mildly distended. Stoma site i ncision with dry dressing. Active bs are present. He is voiding well. Has ambulated and reports passing small amount of flatus. 05/16/25: VSS. Patient reports he continues with hiccups. He states she has had several BMs but continues to have nausea. No emesis reported. Informed of possible need to place Ngtube if vomiting begins. 05/17/25: VSS. WBC 7.4, HGB 11.0, HCT 32.1, PLT 149. Chemistry significant for BUN 21, total bilirubin 1.1. AST, ALT, and alk phos are normal. Patient has had several bouts of emesis last night and this morning. Ngutbe placed and 2500 ml of bilious output noted. Patient reports feeling better once ngtube was placed. He continues to pass flatus and has had bms. Will keep npo but may have ice chips. Encouraged ambulation. He agreed. 05/18/25: VSS. Patient had total 3200 gastric billious output from NGtube in past 24 hours. HGb 10.0, platelets 145 today. WBC 6.2. Patient reports feeling better after NG tube insertion and removal of gastric content. Kub yesterday 1. Enteric tube terminates within the stomach. Bowel loops are normal in caliber. Patient tolerated clear fluids this pm.Will check for residual 05/19/25:Patient had 300 ml last night and 400ml residual this morning after having clear fluids. Temp 100.8 this am. BP, pulse normal. WBC 3.9, HGB 10.7, Plt 184. Potassium 3.2, bun 19, total bili 1.1. AST and ALT normal. Plan for upper GI with small bowel follow through today. Patient had 600 mL of bilious output from NG tube. 05/20/25:Upper GI series significant for partial distal bowel obstruction versus ileus. Interval worsening in the bowel dilation compared to the previous radiographs.UGI series reviewed with Dr. Condon. Recommendations to continue with NG tube and monitor output, recommend ambulation. WBC 4.7,HGB 10.5, plt 207 today. Patient's vital signs remained stable. He remains afebrile. Patient has had 3800 mL of bilious output in the past 24 hours. He has had bowel movements yesterday. ON exam 200ml of billious output noted in collection canister. Patient BBS are clear. He continues with hiccups but reports it has decreased. Active BS present. Recommend ambulation. Small sips of fluids.] 05/21/25: Remove last night. Patient is tolerating clear fluids without any nausea or vomiting. Patient's vital signs have remained stable. Plan to advance diet and plan for discharge in the next 24 hours. Review of Systems: CONSTITUTIONAL: No malaise or change in sensation of wellbeing. ENMT: No rhinorrhea, otorrhea, sinus pain, ear ache. CARDIOVASCULAR: No angina, palpitations, orthopnea or paroxysmal dyspnea. RESPIRATORY: No SOB. GASTROINTESTINAL: No abdominal pain, nausea, vomiting, diarrhea, hematemesis, melena or change in the patient's habitual bowel movements consistency/number. GENITOURINARY: No dysuria, hematuria or change in bladder continence. MUSCULOSKELETAL: No new muscle pain or decrease in muscular strength. No new joint swelling, redness or tenderness. SKIN: No new rash. Physical Exam: GEN: Awake, alert, oriented in person, time and place, and in no acute distress. HEENT: No rhinorrhea. Oral pharyngeal mucosa is pink, moist and within normal limits. CHEST: Inspection, palpation of the chest were unremarkable. Lung auscultation revealed normal breath sounds bilaterally. CARDIAC: Heart sounds are regular. ABD: Soft, non-tender and not distended. No peritoneal signs on palpation. No organomegaly. Normal bowel sounds. Stoma site incision dry and intact.Ng tube clamped at this time. EXT: No cyanosis or clubbing. No edema. SKIN: Intact. No rashes. JOINTS: No evidence of synovitis or acute arthritis. NEURO: Alert and oriented to name, place and person. No focal motor deficits. Normal speech.Strength is normal. Vital Signs (last 8hr) Date Time Temp Pulse Resp B/P (MAP) Pulse Ox O2 Delivery O2 Flow Rate FiO2 05/21/25 11:58 98.1 72 19 119/65 98 Room Air 05/21/25 08:09 98.6 82 18 150/80 97 Room Air Laboratory: [ ] Laboratory: Test 05/21/25 04:51 Range/Units White Blood Count 6.3 4.8-10.8 K/uL Red Blood Count 3.19 L 4.50-6.20 MIL/uL Hemoglobin 9.8 L 14.0-18.0 g/dL Hematocrit 29.1 L 42-54 % Mean Corpuscular Volume 91.2 79-99 fL Mean Corpuscular Hemoglobin 30.7 27.0-33.0 pg Mean Corpuscular Hemoglobin Concent 33.7 32.0-36.0 g/dL Red Cell Distribution Width 13.2 11.0-15.5 % Platelet Count 211 130-400 K/uL Mean Platelet Volume 9.4 7.5-10.5 fL Immature Granulocyte % (Auto) 0.6 0-1 % Neutrophils (%) (Auto) 72.2 40.0-77.0 % Lymphocytes (%) (Auto) 9.5 L 21.0-51.0 % Monocytes (%) (Auto) 10.3 3.0-13.0 % Eosinophils (%) (Auto) 7.1 0.0-8.0 % Basophils (%) (Auto) 0.3 0.0-5.0 % Neutrophils # (Auto) 4.6 1.8-7.7 K/uL Lymphocytes # (Auto) 0.6 L 1.0-4.8 K/uL Monocytes # (Auto) 0.7 0.1-1.0 K/uL Eosinophils # (Auto) 0.45 0.00-0.70 K/uL Basophils # (Auto) 0.02 0.00-0.20 K/uL Absolute Immature Granulocyte (auto 0.04 0-1 K/uL Nucleated Red Blood Cells 0.0 0.0-0.19 % Sodium Level 140 136-145 mmol/L Potassium Level 3.4 L 3.5-5.1 mmol/L Chloride Level 99 L 101-111 mmol/L Carbon Dioxide Level 33 H 21-32 mmol/L Blood Urea Nitrogen 17 7-18 mg/dL Creatinine 0.7 0.5-1.3 mg/dL Glomerular Filtration Rate Calc 99 >90 mL/min Random Glucose 108 H 70-105 mg/dL Total Calcium 8.9 8.5-10.1 mg/dL Magnesium Level 2.10 1.80-2.40 mg/dL Total Bilirubin 0.8 0.2-1.0 mg/dL Aspartate Amino Transf (AST/SGOT) 15 10-37 U/L Alanine Aminotransferase (ALT/SGPT) 19 12-78 U/L Alkaline Phosphatase 51 50-136 U/L Total Protein 6.4 6.0-8.3 g/dL Albumin 2.7 L 3.5-5.0 g/dL Current Medications Medications (Trade) Dose Ordered Sig/Alla Route PRN Reason Start Time Stop Time Status Last Admin Dose Admin Acetaminophen (TYLenol 325MG TAB) 650 mg Q4H PRN PO TEMPERATURE GREATER THAN 101 05/13/25 09:30 06/12/25 09:29 05/19/25 09:04 650 MG Acetaminophen/ Hydrocodone Bitart (NORco 5/325MG) 1 tab Q4H PRN PO MODERATE PAIN (4-6) 05/13/25 09:30 05/13/25 09:31 DC Albuterol (DUOneb) 1 udvial Q6H PRN IH sob OR WHEEZING 05/13/25 10:30 06/12/25 10:29 Dexamethasone (DeCADron 4 mg TAB) 8 mg ONCE PO 05/14/25 17:00 05/14/25 22:00 DC 05/14/25 17:33 8 MG Enoxaparin Sodium (Lovenox) 40 mg DAILY SQ 05/14/25 09:00 06/13/25 08:59 05/21/25 08:29 40 MG Ertapenem 50 ml @ 100 mls/hr ONCALL IV 05/13/25 08:00 05/13/25 16:03 DC Famotidine (Pepcid 20mg Vial) 20 mg BID IV 05/13/25 21:00 06/12/25 20:59 05/21/25 08:29 20 MG Hydralazine HCl (APRESOLine 20MG INJ) 5 mg Q6H PRN IV ADMINISTER FOR SBP > 160 05/13/25 11:30 06/12/25 11:29 Lactated Ringer's 1,000 ml @ 75 mls/hr [id number] IV 05/16/25 06:30 06/15/25 06:29 05/21/25 06:43 75 MLS/HR Magnesium Sulfate 50 ml @ 0 mls/hr PROTOCOL IV 05/14/25 06:00 06/13/25 05:59 05/17/25 14:33 25 MLS/HR Magnesium Sulfate 50 ml @ 0 mls/hr PROTOCOL IV 05/17/25 07:30 05/17/25 07:23 DC Metoclopramide HCl (regLAN 10MG IV) 10 mg ONCE IVP 05/14/25 17:00 05/14/25 22:00 DC 05/14/25 17:33 10 MG Metoclopramide HCl (regLAN 10MG IV) 10 mg Q6H IVP 05/20/25 07:00 06/19/25 06:59 05/20/25 18:08 10 MG Metoclopramide HCl (regLAN 10MG IV) 10 mg Q8H5 PRN IVP OTHER [SEE ORDER COMMENTS] 05/16/25 10:30 05/20/25 06:53 DC 05/19/25 06:45 10 MG Morphine Sulfate (morPHINE 2MG SYG) 2 mg Q3H PRN IV MODERATE PAIN (4-6) 05/13/25 09:30 05/18/25 12:29 DC Morphine Sulfate (morPHINE 4MG SYG) 4 mg Q3H PRN IV SEVERE PAIN (7-10) 05/13/25 09:30 05/18/25 12:29 DC 05/13/25 13:17 4 MG Multivitamins Therapeutic (Multivitamin Tablet) 1 tab DAILY PO 05/14/25 09:00 06/13/25 08:59 05/19/25 09:04 1 TAB Ondansetron HCl (zoFRAN 4MG INJ) 4 mg Q4H PRN IVP NAUSEA 05/13/25 09:30 06/12/25 09:29 05/15/25 15:18 4 MG Potassium Chloride/Dextrose/ Sod Cl 1,000 ml @ 75 mls/hr [id number] IV 05/13/25 09:30 05/16/25 10:09 DC 05/15/25 21:22 75 MLS/HR Potassium Chloride 100 ml @ 50 mls/hr AD PRN IV POTASSIUM PROTOCOL 05/19/25 06:30 06/18/25 06:29 05/21/25 06:54 50 MLS/HR Potassium Chloride 100 ml @ 50 mls/hr PROTOCOL IV 05/18/25 06:30 05/19/25 06:05 DC 05/19/25 05:59 50 MLS/HR Potassium Chloride 100 ml @ 50 mls/hr PROTOCOL IV 05/18/25 11:00 05/18/25 06:12 DC Simethicone (Mylicon) 40 mg TID PRN PO GI GAS 05/13/25 18:30 06/12/25 18:29 05/19/25 09:03 40 MG Sodium Chloride (Sodium Chloride) 2,000 mg ONCE PO 05/16/25 09:00 05/16/25 19:00 DC 05/16/25 11:05 2,000 MG Diagnostics / Radiology: [COPY/PASTE HERE IF NO REPORTS PLEASE DELETE SECTION] Assessment: [ Emesis Ileostomy status History of rectal cancer Ileus] Plan: Advance diet as tolerted Encourage ambulation Encourage IS exercises Pain medicines as needed Antiemetics p.r.n Plan for disposition in the next 24 if patient is tolerating diet Please call with questions concerns, and change in clinical status Appreciate hospitalist's assistance in our patient care.] BIMAL LINDSEY NP May 21, 2025 15:10
[2025-05-22] VITALS: BP 127/89; PULSE 78; RESP 18; TEMP 98.3
[2025-05-22 04:00] VITALS: BP 114/65; PULSE 69; RESP 18; TEMP 98.1
[2025-05-22 05:22] LABS: IMMATURE GRANULOCYTE ABSOLUTE 0.03 K/uL (0-1); NUCLEATED RED BLOOD CELLS 0.0 % (0.0-0.19); PLATELET COUNT (AUTO) 223 K/uL (130-400); RED BLOOD CELL COUNT(AUTO) 3.12 MIL/uL (4.50-6.20); RED CELL DISTRIBUTION WIDTH 13.2 % (11.0-15.5); WHITE BLOOD COUNT (AUTO) 5.0 K/uL (4.8-10.8)
[2025-05-22 05:38] LABS: ASPARTATE AMINOTRANSFERASE 14.0 U/L (10-37); CREATININE 0.6 mg/dL (0.5-1.3); GLOMERULAR FILTR. RATE CALC 103.0 mL/min (>90); GLUCOSE,RANDOM 120.0 mg/dL (70-105); SODIUM SERUM 137.0 mmol/L (136-145); TOTAL PROTEIN, SERUM 5.9 g/dL (6.0-8.3); UREA NITROGEN, BLOOD 11.0 mg/dL (7-18)
[2025-05-22 07:48] VITALS: O2SAT 97
[2025-05-22 08:00] VITALS: BP 119/70; PULSE 86; RESP 19; TEMP 100
--- NOTE | 2025-05-22 08:01 | PN ---
[facility] PROGRESS NOTE Date of Service: May 22, 2025 Time of Service: 08:01 SUBJECTIVE: [ 05/13 This is a 69-year-old male with prior history of malignant neoplasm of the sigmoid colon. Has prior history of colostomy in 08/2024 and low anterior resection with diverting ileostomy in 02/17/2025. Patient underwent closure of ileostomy today with small bowel resection. Patient was seen in PACU postprocedure. He appears very sleepy post anesthesia, he is able to tell me he is not in significant pain. Denies any chest pain, shortness of breath. No significant underlying medical history noted otherwise. We will continue to monitor this patient closely postoperatively. 05/14 patient was seen by nurse practitioner and physician during rounding in room 301. Patient is day one s/p ileostomy closure with small-bowel resection with Dr. Condon. WBC 8.4. H&H stable. Patient denies any shortness of breath, chest pain, nausea, vomiting or any other discomfort. Surgical site present with no signs of infection. We will continue to monitor patient in the meantime. A.m. labs. Disposition as per primary. 05/15 patient was seen by nurse practitioner and physician during rounding in room 301. Patient is on GI soft diet and that is tolerating well. Patient denies any shortness of breath, chest pain, nausea, vomiting or any other discomfort other than pain to the surgical site. Leal catheter was already discontinued on 05/14/2025. We will continue to monitor patient in the meantime. Disposition per primary. 05/16 patient was seen by nurse practitioner and physician during rounding in room 301. X-ray of the abdomen was performed and showed autonomic ileus with distended loops of small bowel. Gastrografin of small bowel was recommended. Nurse practitioner notified GI on above-stated results. They will follow up. Patient at this moment on GI soft diet and tolerating well. We will continue to monitor patient in the meantime. A.m. labs 05/17 patient was seen by nurse practitioner and physician during rounding in room 301. Patient is s/p KUB which showed adenomatous ileus. upholsterer outsideparts salesperson reach out to the primary to notify regarding the results and as per primary NPO and insert NG tube. Patient also was vomiting throughout the night. Patient also will receive 20 mEq of IV potassium and 2 g of magnesium. We will continue to monitor patient in the meantime. A.m. labs. Disposition as per primary 05/18 Pt was seen by DESIGN TEACHER and Physician. Pt remains NPO as per GI recommendations. NG Tube had 2300 cc output day shift yesterday, night had 500cc and so far day shift today already 600cc. XR Abdomen performed, pending reading. We will continue to monitor pt in a meantime. AM labs. Discharge as per Primary dr Condon] 05/19/25 patient is seen and examined. NG tube output 900. Primary nurse reports patient was started on diet NG tube was clamped residual was 400 GI was made aware. No nausea no vomiting. T-max 100.8. v abdominal x-ray was negative we will wait for GI recommendations discharge as per primary doctor supa 05/20/2025. Patient was seen earlier patient continues with high residuals output 1500 overnight. We will consult dietitian for failure to thrive: We will follow the recommendations GI continues to follow patient. They we will continue with cleared liquid clamped NG tube 30 minutes4 times a day for clear liquid feedings. Primary nurse reports no events overnight 05/21/25 The patient continue with high residuals. report no N/V or abdominal pain patient report ambulating: will wait for GI recommendations. / 05/22/25 patient was sitting on the edge of the bed patient denies nausea and vomiting abdominal pain after his breakfast. Patient denied chest pain or shortness for breath patient's is medically cleared for discharge. REVIEW OF SYSTEMS: CONSTITUTIONAL: Denies fevers, chills, or night sweats. No unintentional weight loss reported. NEUROLOGICAL: Denies headache, amaurosis fugax, motor weakness, sensory deficit, vertigo/spinning sensation, gait abnormalities, or tremors. ENT: No hearing loss, otalgia, otorrhea, rhinitis, rhinorrhea, hoarseness, or sore throat. CARDIOVASCULAR: Denies any exertional angina, dyspnea on exertion, orthopnea, paroxysmal nocturnal dyspnea, palpitations, life-threatening arrhythmias, claudication. PULMONARY: Denies any shortness of breath, cough, phlegm/sputum, hemoptysis, pleuritic chest pain. SLEEP: Denies morning headaches, daytime somnolence or napping. Denies difficulty falling asleep, staying asleep, waking from sleep. Denies knowledge of snoring. GASTROINTESTINAL: Denies any type of dysphagia to either liquids or solids. Denies pyrosis, early satiety, abdominal pain, diarrhea, constipation, or changes in stool consistency or caliber. Denies coffee-ground emesis, h ematemesis, hematochezia, or melanotic stools. Complains of pain to the surgical site. Complains of nausea and vomiting. DESIGN TEACHER Tube in place GENITOURINARY: Denies frequency, urgency, nocturia, hematuria or incontinence (Storage/Irritative symptoms.) Low urinary stream, straining to void, urinary intermittency or hesitancy, splitting of the voiding stream, terminal dribbling. ENDOCRINOLOGIC: Denies polyuria, polydipsia, polyphagia or heat/cold intolerances. HEMATOLOGIC: Denies thrombophilia/previous clots, or coagulopathy/bleeding disorders. ONCOLOGIC: Denies personal history of malignancy. DERMATOLOGIC: Denies rashes or pruritus. PSYCHIATRIC: Denies any suicidal or homicidal ideation. Denies hallucinations. PHYSICAL EXAM GENERAL APPEARANCE: The patient is awake, alert, and oriented, in no acute cardiopulmonary distress. NEUROLOGICAL: Cranial nerves II-XII grossly intact. Motor is 5/5 in bilateral upper and lower extremities proximal to distal. No sensory deficits. HEENT: Face is symmetric. Pupils are equal and reactive. Extraocular movements are intact. NECK: Supple. No JVD. No thyromegaly. No submental, submandibular, pre- /postauricular, occipital or supraclavicular lymphadenopathy. CHEST: Normal chest expansion. No Telemetry. LUNGS: Absence of any rales, rhonchi or any wheezing. CARDIOVASCULAR: Regular. S1 and S2 normal. No appreciable rubs, murmurs or gallops. ABDOMEN: Soft, nontender, and nondistended. There is no rebound, voluntary guarding, or rigidity. : Deferred. No Leal. EXTREMITIES: Non-edematous and not cyanotic. No clubbing. Good capillary refi ll. SKIN: No skin breakdown. Vital Signs (last 8hr) Date Time Temp Pulse Resp B/P (MAP) Pulse Ox O2 Delivery O2 Flow Rate FiO2 05/22/25 04:00 98.1 69 18 114/65 96 Room Air LABS: Laboratory: Test 05/22/25 04:26 Range/Units White Blood Count 5.0 4.8-10.8 K/uL Red Blood Count 3.12 L 4.50-6.20 MIL/uL Hemoglobin 9.7 L 14.0-18.0 g/dL Hematocrit 28.4 L 42-54 % Mean Corpuscular Volume 91.0 79-99 fL Mean Corpuscular Hemoglobin 31.1 27.0-33.0 pg Mean Corpuscular Hemoglobin Concent 34.2 32.0-36.0 g/dL Red Cell Distribution Width 13.2 11.0-15.5 % Platelet Count 223 130-400 K/uL Mean Platelet Volume 9.7 7.5-10.5 fL Immature Granulocyte % (Auto) 0.6 0-1 % Neutrophils (%) (Auto) 71.6 40.0-77.0 % Lymphocytes (%) (Auto) 11.0 L 21.0-51.0 % Monocytes (%) (Auto) 6.6 3.0-13.0 % Eosinophils (%) (Auto) 10.0 H 0.0-8.0 % Basophils (%) (Auto) 0.2 0.0-5.0 % Neutrophils # (Auto) 3.6 1.8-7.7 K/uL Lymphocytes # (Auto) 0.6 L 1.0-4.8 K/uL Monocytes # (Auto) 0.3 0.1-1.0 K/uL Eosinophils # (Auto) 0.50 0.00-0.70 K/uL Basophils # (Auto) 0.01 0.00-0.20 K/uL Absolute Immature Granulocyte (auto 0.03 0-1 K/uL Nucleated Red Blood Cells 0.0 0.0-0.19 % Sodium Level 137 136-145 mmol/L Potassium Level 3.2 L 3.5-5.1 mmol/L Chloride Level 100 L 101-111 mmol/L Carbon Dioxide Level 33 H 21-32 mmol/L Blood Urea Nitrogen 11 7-18 mg/dL Creatinine 0.6 0.5-1.3 mg/dL Glomerular Filtration Rate Calc 103 >90 mL/min Random Glucose 120 H 70-105 mg/dL Total Calcium 8.2 L 8.5-10.1 mg/dL Magnesium Level 1.70 L 1.80-2.40 mg/dL Total Bilirubin 0.6 # 0.2-1.0 mg/dL Aspartate Amino Transf (AST/SGOT) 14 10-37 U/L Alanine Aminotransferase (ALT/SGPT) 18 12-78 U/L Alkaline Phosphatase 53 50-136 U/L Total Protein 5.9 L 6.0-8.3 g/dL Albumin 2.4 L 3.5-5.0 g/dL Current Medications Medications (Trade) Dose Ordered Sig/Alla Route PRN Reason Start Time Stop Time Status Last Admin Dose Admin Acetaminophen (TYLenol 325MG TAB) 650 mg Q4H PRN PO TEMPERATURE GREATER THAN 101 05/13/25 09:30 06/12/25 09:29 05/19/25 09:04 650 MG Acetaminophen/ Hydrocodone Bitart (NORco 5/325MG) 1 tab Q4H PRN PO MODERATE PAIN (4-6) 05/13/25 09:30 05/13/25 09:31 DC Albuterol (DUOneb) 1 udvial Q6H PRN IH sob OR WHEEZING 05/13/25 10:30 06/12/25 10:29 Dexamethasone (DeCADron 4 mg TAB) 8 mg ONCE PO 05/14/25 17:00 05/14/25 22:00 DC 05/14/25 17:33 8 MG Enoxaparin Sodium (Lovenox) 40 mg DAILY SQ 05/14/25 09:00 06/13/25 08:59 05/22/25 07:48 40 MG Ertapenem 50 ml @ 100 mls/hr ONCALL IV 05/13/25 08:00 05/13/25 16:03 DC Famotidine (Pepcid 20mg Vial) 20 mg BID IV 05/13/25 21:00 06/12/25 20:59 05/22/25 07:48 20 MG Hydralazine HCl (APRESOLine 20MG INJ) 5 mg Q6H PRN IV ADMINISTER FOR SBP > 160 05/13/25 11:30 06/12/25 11:29 Lactated Ringer's 1,000 ml @ 75 mls/hr [id number] IV 05/16/25 06:30 06/15/25 06:29 05/21/25 20:12 75 MLS/HR Magnesium Sulfate 50 ml @ 0 mls/hr PROTOCOL IV 05/14/25 06:00 06/13/25 05:59 05/22/25 06:39 25 MLS/HR Magnesium Sulfate 50 ml @ 0 mls/hr PROTOCOL IV 05/17/25 07:30 05/17/25 07:23 DC Metoclopramide HCl (regLAN 10MG IV) 10 mg ONCE IVP 05/14/25 17:00 05/14/25 22:00 DC 05/14/25 17:33 10 MG Metoclopramide HCl (regLAN 10MG IV) 10 mg Q6H IVP 05/20/25 07:00 06/19/25 06:59 05/22/25 06:38 10 MG Metoclopramide HCl (regLAN 10MG IV) 10 mg Q8H5 PRN IVP OTHER [SEE ORDER COMMENTS] 05/16/25 10:30 05/20/25 06:53 DC 05/19/25 06:45 10 MG Morphine Sulfate (morPHINE 2MG SYG) 2 mg Q3H PRN IV MODERATE PAIN (4-6) 05/13/25 09:30 05/18/25 12:29 DC Morphine Sulfate (morPHINE 4MG SYG) 4 mg Q3H PRN IV SEVERE PAIN (7-10) 05/13/25 09:30 05/18/25 12:29 DC 05/13/25 13:17 4 MG Multivitamins Therapeutic (Multivitamin Tablet) 1 tab DAILY PO 05/14/25 09:00 06/13/25 08:59 05/19/25 09:04 1 TAB Ondansetron HCl (zoFRAN 4MG INJ) 4 mg Q4H PRN IVP NAUSEA 05/13/25 09:30 06/12/25 09:29 05/15/25 15:18 4 MG Potassium Chloride/Dextrose/ Sod Cl 1,000 ml @ 75 mls/hr [id number] IV 05/13/25 09:30 05/16/25 10:09 DC 05/15/25 21:22 75 MLS/HR Potassium Chloride 100 ml @ 50 mls/hr AD PRN IV POTASSIUM PROTOCOL 05/19/25 06:30 06/18/25 06:29 05/21/25 06:54 50 MLS/HR Potassium Chloride 100 ml @ 50 mls/hr PROTOCOL IV 05/18/25 06:30 05/19/25 06:05 DC 05/19/25 05:59 50 MLS/HR Potassium Chloride 100 ml @ 50 mls/hr PROTOCOL IV 05/18/25 11:00 05/18/25 06:12 DC Potassium Chloride 100 ml @ 100 mls/hr AD PRN IV POTASSIUM PROTOCOL 05/22/25 07:30 06/21/25 07:29 Potassium Chloride (K-Dur/Klor-Con 20meq) 20 meq AD PRN PO POTASSIUM PROTOCOL 05/22/25 07:30 06/21/25 07:29 Potassium Chloride (KCl 10% Elixir 20meq/15ml) 20 meq AD PRN PO POTASSIUM PROTOCOL 05/22/25 07:30 06/21/25 07:29 Simethicone (Mylicon) 40 mg TID PRN PO GI GAS 05/13/25 18:30 06/12/25 18:29 05/19/25 09:03 40 MG Sodium Chloride (Sodium Chloride) 2,000 mg ONCE PO 05/16/25 09:00 05/16/25 19:00 DC 05/16/25 11:05 2,000 MG DIAGNOSTICS / RADIOLOGY: [ ] ASSESSMENT: Status post ileostomy, 05/13/2025, by Dr. Condon Prior history of LAR with diverting ileostomy in 02/17/2025, POA Adynamic ileus Per x-ray abdomen 05/16/2025 History of colostomy in 08/2024, POA History of malignant neoplasm of sigmoid colon, POA History of anemia, POA PLAN: Continue with close monitoring in medical-surgical floor Continue with pain control and IV fluids post surgery Continue with postsurgical care by Dr. Condon We will continue post residual checking after meals. As per GI clamped for 30 minutes NG tube 4 times a day for clear liquid feedings. It Continue to replace electrolytes to keep potassium above 4.0 magnesium above 2.0 ongoing surveillance PT to eval and treat patient. Continue with IS, and out of bed to chair twice daily A.m. labs Continue with GI prophylaxis with Pepcid, DVT prophylaxis with Lovenox Hospitalist we will signed off. ATTESTATION BY PHYSICIAN I have seen and examined the patient. I reviewed the documentation, medical decision making, and treatment plan as noted by the mid-level provider above. I agree with the findings and plan of care. WALTER WELLS MD, [facility] NP May 22, 2025 08:01
[2025-05-22] MEDS: PoTASSium chloRIDE 20MEQ ER 20 MEQ ERTAB PO PRN (11:44)
[2025-05-22 12:00] VITALS: BP 123/71; PULSE 83; RESP 19; TEMP 98
--- NOTE | 2025-05-22 14:27 | DS ---
Discharge Summary Hospital Course Patient tolerating regular diet without any n/v. He is ambulating, passing flatus and has had bms. Potassium is being replaced per medical. Home care instructions with ER warnings given. He is to keep f/u appt at [facility] for 05/29/25 at 1:45pm. BIMAL LINDSEY NP May 22, 2025 14:27
[2025-05-22] MEDS: PoTASSium chl 10% ELIXIR 20MEQ 20 MEQ/15 ML UDCUP PO PRN (15:06)
--- NOTE | 2025-05-22 16:29 | NUR ---
DISCHARGE PERIPHERAL IV REMOVED DISCHARGE EDUCATION AND INSTRUCTIONS PROVIDED TO PATIENT AND FAMILY PATIENT AND FAMILY AWARE TO KEEP FOLLOW UP APPOINTMENT WITH [facility] 05/29/25 AT 1:45 P.M. PATIENT AND FAMILY TAUGHT HOW TO PERFORM WOUND CARE ALL QUESTIONS ANSWERED
== END 2025-05-22 16:25 | disposition home or self-care (01) | DRG 330 ==
LOC: DAHIP 05-13 06:27 → 3AH 05-13 10:20 → 3BH 05-18 14:15
PROVIDERS: ADMIT Surgery; ATTEND Surgery
PROC: 0DBB0ZZ Excision of Ileum, Open Approach (ICD-10-PCS; principal; 2025-05-13 07:30)
DX: Z43.2 Encounter for attention to ileostomy (principal); K56.7 Ileus, unspecified; R62.7 Adult failure to thrive; Z85.048 Personal history of other malignant neoplasm of rectum, rectosigmoid junction, and anus; Z68.23 Body mass index [BMI] 23.0-23.9, adult
CPT/HCPCS: 36415; 36600; 74018; 74250; 80048; 80053; 82803; 83735; 85025; 85610; 85730; 86850; 86900; 86901; 88307; 93005; 94664; A4606; G0378; J0330; J1100; J1335; J1650; J2003; J2250; J2270; J2405; J2704; J2710; J2765; J3010; J3230; J3475; J3480; J3490; J7120; J8540; Q9963; A4215; A4216; A4221; A4222; A4223; A4663; A4930; A6260; J0665